=== PATIENT | female | born 1940 | race Caucasian/White ===

== ENCOUNTER 2017-07-21 10:29 | Inpatient (IN) ==
[2017-07-21] MEDS ORDERED: Isovue-370 500 ML INFUS..BTL IV ONE ×2 (10:39→11:06)
[2017-07-21] MEDS ORDERED: *HR* FentaNYL (PF) 100 MCG/2 ML VIAL IVP ONE ×2 (11:09→14:01)
[2017-07-21] MEDS ORDERED: Ondansetron 4 MG/2 ML VIAL IVP ONE (11:09)
--- NOTE | 2017-07-21 11:26 | Emergency Department Note ---
Disposition Clinical Impression: Hiatal hernia, Cholecystitis Leukocytosis Qualifiers: Leukocytosis type: other Qualified Code(s): D72.828 - Other elevated white blood cell count Disposition: Admitted As Inpatient Condition: Fair Referrals: Katia Cordoba CNP [Primary Care Provider] - Forms: ED Satisfaction Letter General Adult HPI - General Chief complaint: ED Chest Pain Stated complaint: Epigastric pain,CP Source: patient Limitations: no limitations Nursing Notes Reviewed: Yes Vital Signs Reviewed: Yes - History of Present Illness HPI Narrative: 77-year-old female presented to emergency department with epigastric and right upper quadrant pain for the last 2 days. Patient denies any fever. She denies any nausea or vomiting. Patient states that pain radiates to right side of her back. Patient does have gallbladder. Patient reports history of hiatal hernia. Patient also reports history of blood clots. Patient is currently on Xarelto. Patient was seen by primary care and given GI cocktail and this is not really for symptoms. Pain Scale: 8 - Related Data Home Medications Medication Instructions Recorded Confirmed Levothyroxine Sodium [Tirosint] 88 mcg PO DAILY 10/02/15 07/21/17 ALPRAZolam [Xanax 1 MG Tablet] 1 mg PO DAILY PRN 10/09/15 07/21/17 Omeprazole [PriLOSEC] 40 mg PO BID 10/09/15 07/21/17 B2/Vits A,C,E/Lut/Zeaxanth/Min 1 tab PO DAILY 07/21/17 07/21/17 [Icaps Tablet] DiphenhydraMINE [Benadryl] 25 mg PO Q6HR PRN 07/21/17 07/21/17 Ferrous Sulfate [Iron] 325 mg PO DAILY 07/21/17 07/21/17 Furosemide [Lasix] 20 mg PO DAILY 07/21/17 07/21/17 Losartan [Cozaar] 25 mg PO DAILY 07/21/17 07/21/17 Metoprolol XL (24 HR) Succ [Toprol 12.5 mg PO DAILY 07/21/17 07/21/17 Xl] Nitroglycerin [Nitrostat] 0.4 mg SL Q5MIN PRN 07/21/17 07/21/17 Potassium Chloride 20 meq PO DAILY 07/21/17 07/21/17 Rivaroxaban [Xarelto] 10 mg PO DAILY 07/21/17 07/21/17 Rosuvastatin Calcium [Rosuvastatin 20 mg PO HS 07/21/17 07/21/17 Calcium] Previous Rx's Medication Instructions Recorded Acetaminophen [Tylenol] 1 - 2 tab PO Q6HR PRN #90 tablet 10/02/15 Aspirin 81 mg PO DAILY #30 tab.chew 11/12/15 Allergies Allergy/AdvReac Type Severity Reaction Status Date / Time adhesive tape Allergy Rash Verified 07/21/17 15:43 All systems ED: reviewed and negative except as stated. Review of Systems: As Per HPI Cardiovascular: Denies: chest pain Respiratory: Denies: cough Gastrointestinal: Reports: abdominal pain, nausea. Denies: vomiting Genitourinary: Denies: urgency, dysuria Musculoskeletal: Denies: back pain Integumentary: Denies: rash Neurological: Denies: headache, weakness, numbness, paresthesias Endocrine: Denies: fatigue Past Medical History - Past Medical History Medical history: Reports: hyperlipidemia, hypertension, myocardial infarction, pulmonary embolus, other Surgical history: Reports: other Psychiatric history: Reports: anxiety, depression - Social History Smoking Status: Never smoker Smokeless Tobacco Status: No Alcohol use: Reports: none Drug use: Reports: none Physical Exam - General Limitations: no limitations General appearance: alert, in no apparent distress - Head Head exam: atraumatic, normocephalic - Eye Eye exam: Present: EOMI. Absent: scleral icterus, conjunctival injection - ENT ENT exam: normal exam, normal oropharynx - Neck Neck exam: Present: full ROM, trachea midline. Absent: tenderness, meningismus - Chest Chest inspection: Present: normal inspection, symmetric chest wall rise - Respiratory Respiratory exam: Present: normal lung sounds bilaterally. Absent: respiratory distress - Cardiovascular Cardiovascular exam: Present: regular rate, normal rhythm, normal heart sounds - Abdominal Exam Abdominal exam: Present: soft, tenderness, Silverio's sign. Absent: distention, guarding, rebound Abdominal tenderness: Present: RUQ, moderate - Extremities Exam Extremities exam: Present: normal capillary refill. Absent: calf tenderness - Back Exam Back exam: Absent: CVA tenderness (R), CVA tenderness (L) - Neurological Exam Neurological exam: Present: alert, oriented X3 - Psychiatric Psychiatric exam: Present: normal affect, normal mood - Skin Skin exam: Present: warm, dry, intact, normal color. Absent: rash Course Vital Signs Temperature 99.6 F 07/21/17 10:33 Pulse Rate 87 07/21/17 10:33 Respiratory Rate 18 07/21/17 10:33 Blood Pressure 127/78 07/21/17 10:33 O2 Sat by Pulse Oximetry 93 07/21/17 10:33 Temperature 99.6 F 07/21/17 10:59 Pulse Rate 75 07/21/17 15:52 Respiratory Rate 20 07/21/17 15:52 Blood Pressure 148/82 07/21/17 15:52 O2 Sat by Pulse Oximetry 95 07/21/17 15:52 Oxygen Delivery Oxygen Delivery Room Air Medical Decision Making - MDM Narrative Medical decision making narrative: 77-year-old female presents to emergency department with concern for 2 days of right upper quadrant and epigastric pain. We obtained a CT scan of abdomen and pelvis which revealed possible gallbladder distention, wall thickening and adjacent fat stranding. We obtained ultrasound the gallbladder which revealed distention, wall thickening and adjacent fat stranding. There was an sure and extrahepatic biliary ductal dilation without calcified distal obstructing common duct stone. Chest x-ray reveals no acute pulmonary abnormality. Patient has leukocytosis. Total bilirubin is 1.2. Hepatic transaminases are not elevated. Reveals the hiatal hernia that the patient has. CTA was also obtained as there was possible concern for pulmonary embolus as patient has a history of blood clots. This did not reveal any evidence of PE. Electrocardiogram did not reveal any ischemic ST changes. Troponin was negative. Patient was given a liter of fluids here in the emergency department. She was given analgesia for pain. Patient was given Zosyn as well for antimicrobial coverage. I spoke with Dr. Bear regarding patient's care. Patient is not a low-risk surgery as she is 77-year-old female had a history of RI. Last echocardiogram reveals ejection fraction of 35-40% obtained in October 2015. Patient is also on Xarelto. We have ordered a stat echocardiogram that is currently pending for Dr. Bear for further cardiac risk stratification. I spoke with patient at bedside regarding all the results. Abdomen/Pelvis CT 07/21/17 10:40 IMPRESSION: No acute intrathoracic process suspected. The gallbladder shows distention, wall thickening and adjacent fat stranding suggesting acute inflammation. Intra/extrahepatic biliary ductal dilation without calcified distal obstructing common duct stone. Large hiatal hernia. Distal colonic diverticulosis without radiographic evidence of active inflammation. L3 compression fracture, likely remote. Correlation is recommended. D/ / Mavis De La Cruz Cha, MD / Mavis De La Cruz Cha, MD Interpreting Provider: Mavis De La Cruz Cha, MD Chest X-Ray 07/21/17 10:40 IMPRESSION: 1. No acute pulmonary abnormality. 2. Hiatal hernia. D/ / Bernard Dhaliwal MD / Bernard Dhaliwal MD Interpreting Provider: Bernard Dhaliwal MD Chest CTA 07/21/17 10:56 IMPRESSION: No acute intrathoracic process suspected. The gallbladder shows distention, wall thickening and adjacent fat stranding suggesting acute inflammation. Intra/extrahepatic biliary ductal dilation without calcified distal obstructing common duct stone. Large hiatal hernia. Distal colonic diverticulosis without radiographic evidence of active inflammation. L3 compression fracture, likely remote. Correlation is recommended. D/ / Mavis De La Cruz Cha, MD / Mavis De La Cruz Cha, MD Interpreting Provider: Mavis De La Cruz Cha, MD Gallbladder Ultrasound 07/21/17 13:34 IMPRESSION: Gallbladder is distended with thick mcclure, sludge PERRY, stones and probable small amount of pericholecystic fluid. Findings concerning for acute cholecystitis. D/ / Christian Davis MD / Christian Davis MD Interpreting Provider: Christian Davis MD - Lab Data Result diagrams: 07/21/17 10:57 07/21/17 10:57 Lab Results 07/21/17 07/21/17 07/21/17 Range/Units 10:57 10:57 11:45 WBC 14.6 H (4.3-11.1) K/mcL RBC 5.37 H (3.82-4.97) M/mcL Hgb 15.6 H (11.5-15.4) g/dL Hct 47.3 H (35.3-44.9) % MCV 88.1 (83.0-100.0) fL MCH 29.1 (28.0-33.3) pg MCHC 33.0 (31.6-35.5) g/dL RDW 14.2 (11.5-14.5) % Plt Count 268 (140-400) K/mcL MPV 10.4 (9.4-12.4) fL Immature Gran % 0.5 (0-4) % Seg Neutrophils % 79.9 % Lymphocytes % 9.6 % Monocytes % 9.7 % Eosinophils % 0.1 % Basophils % 0.2 % Neutrophils # 11.7 H (1.6-8.9) K/mcL Lymphocytes # 1.4 (0.6-4.6) K/mcL Monocytes # 1.4 H (0.0-1.3) K/mcL Eosinophils # 0.0 (0.0-0.6) K/mcL Basophils # 0.0 (0.0-0.2) K/mcL Sodium 139 (136-145) mEq/L Potassium 3.9 (3.5-5.1) mEq/L Chloride 102 (98-107) mEq/L Carbon Dioxide 26 (23-29) mEq/L BUN 16 (8-23) mg/dL Creatinine 0.88 (0.60-1.20) mg/dL Est GFR ( Amer) > 60 (> 60) Est GFR (Non-Af Amer) > 60 (> 60) BUN/Creatinine Ratio 18 (6-26) Glucose 111 H (70-105) mg/dL Calculated Osmolality 290 (280-300) Calcium 9.6 (8.6-10.3) mg/dL Total Bilirubin 1.2 H (0.3-1.0) mg/dL AST 20 (13-39) Units/L ALT 14 (7-52) Units/L Alkaline Phosphatase 59 (34-104) Units/L Troponin I < 0.03 (< 0.04) ng/mL Serum Total Protein 7.2 (6.4-8.9) g/dL Albumin 4.3 (3.5-5.7) g/dL Globulin 2.9 (2.4-3.5) g/dL Albumin/Globulin Ratio 1.5 (1.1-2.2) Lipase 12 (11-82) Units/L Urine Color Yellow (Yellow) Urine Clarity Clear (Clear) Urine pH 5.5 (5.0-8.0) pH Units Ur Specific [place] 1.025 (1.010-1.025) Urine Protein 100 H (Neg-Trace) mg/dL Urine Glucose (UA) Normal (Normal) mg/dL Urine Ketones 15 H (Negative) mg/dL Urine Blood Negative (Negative) Urine Nitrite Negative (Negative) Urine Bilirubin Small H (Negative) Urine Urobilinogen Normal (Normal) mg/dL Ur Leukocyte Esterase Trace H (Negative) Urine Microscopic WBC 5-15 H (0-3) per hpf Ur Squamous Epith Cells Many H (None-Few) per lpf Ur Renal Epithelial Cell Few (None-Few) per hpf Urine Bacteria Few (None-Few) per hpf Ur Culture Indicated? NO. A (NO) - EKG Data EKG #1 EKG attestation: Yes I reviewed and interpreted this EKG. EKG results narrative: 10:37 Ventricular rate 86 bpm, IN interval 214 ms, QRS duration 145 ms, QT 394 ms, QTC 137 ms, left axis deviation. Sinus rhythm with first-degree AV block. There is no evidence of any ischemic ST changes on this electrocardiogram. This study was compared to previous one obtained on 11/11/2015.
[2017-07-21 11:52] LABS: Bilirubin,Urine Small (Negative); Blood,Urine Negative (Negative); Clarity,Urine Clear (Clear); Color,Urine Yellow (Yellow); Glucose,Urine (UA) Normal (Normal); Ketones,Urine 15 mg/dL (Negative); Leukocyte Esterase,Urine Trace (Negative); Nitrite,Urine Negative (Negative); PH,Urine 5.5 pH Units (5.0-8.0); Protein,Urine 100 mg/dL (Neg-Trace); Specific Gravity,Urine 1.025 (1.010-1.025); Urobilinogen,Urine Normal (Normal)
[2017-07-21 11:57] LABS: Basophils % 0.2 %; Eosinophils % 0.1 %; Hematocrit 47.3 % (35.3-44.9); Hemoglobin 15.6 g/dL (11.5-15.4); Immature Granulocytes % 0.5 % (0-4); Lymphocytes # 1.4 K/mcL (0.6-4.6); Lymphocytes % 9.6 %; Mean Corpuscular Hemoglobin 29.1 pg (28.0-33.3); Mean Corpuscular Volume 88.1 fL (83.0-100.0); Mean Platelet Volume 10.4 fL (9.4-12.4); Monocytes # 1.4 K/mcL (0.0-1.3); Monocytes % 9.7 %; Neutrophils # 11.7 K/mcL (1.6-8.9); Platelet Count 268 K/mcL (140-400); Red Blood Count 5.37 M/mcL (3.82-4.97); Red Cell Distribution Width 14.2 % (11.5-14.5); Segmented Neutrophils % 79.9 %
[2017-07-21 12:01] LABS: Squamous Epithelial Cell,Urine Many per lpf (None-Few)
[2017-07-21 12:02] LABS: Troponin I < 0.03 ng/mL (< 0.04)
[2017-07-21 12:02] LABS: Renal Epithelial Cells,Urine Few per hpf (None-Few)
[2017-07-21 12:03] LABS: Bacteria,Urine Few per hpf (None-Few)
[2017-07-21 12:10] LABS: Alanine Aminotransferase 14 Units/L (7-52); Albumin 4.3 g/dL (3.5-5.7); Albumin/Globulin Ratio 1.5 (1.1-2.2); Alkaline Phosphatase 59 Units/L (34-104); Aspartate Amino Transferase 20 Units/L (13-39); BUN/Creatinine Ratio 18 (6-26); Bilirubin,Total 1.2 mg/dL (0.3-1.0); Blood Urea Nitrogen 16 mg/dL (8-23); Calcium 9.6 mg/dL (8.6-10.3); Carbon Dioxide 26 mEq/L (23-29); Chloride 102 mEq/L (98-107); Globulin 2.9 g/dL (2.4-3.5); Glucose 111 mg/dL (70-105); Lipase 12 Units/L (11-82); Osmolality,Calculated 290 (280-300); Potassium 3.9 mEq/L (3.5-5.1); Sodium 139 mEq/L (136-145); Total Protein 7.2 g/dL (6.4-8.9); eGFR For African Americans > 60 (> 60); eGFR For Non-African Americans > 60 (> 60)
--- NOTE | 2017-07-21 12:29 | Emergency Department Note ---
Disposition Clinical Impression: Hiatal hernia Disposition: Still a Patient Referrals: Katia Cordoba DISASTER RECOVERY ANALYST [Primary Care Provider] - Forms: ED Satisfaction Letter General Adult HPI - General Chief complaint: ED Chest Pain Stated complaint: Epigastric pain,CP Source: patient Limitations: no limitations - History of Present Illness Pain Scale: 4 - Related Data Home Medications Medication Instructions Recorded Confirmed Levothyroxine Sodium [Tirosint] 88 mcg PO DAILY 10/02/15 11/08/15 ALPRAZolam [Xanax 1 MG Tablet] 1 mg PO DAILY PRN 10/09/15 11/11/15 Beclomethasone Diprop 80mcg [QVAR 1 puff IH BID 10/09/15 10/19/15 80 mcg] Ferrous Sulfate 325 mg PO DAILY 10/09/15 10/19/15 Omeprazole [PriLOSEC] 40 mg PO HS 10/09/15 11/08/15 TraZODone 50 mg PO HS 10/09/15 10/19/15 Previous Rx's Medication Instructions Recorded Acetaminophen [Tylenol] 1 - 2 tab PO Q6HR PRN #90 tablet 10/02/15 HYDROcodone/Acet 5/325 mg [[place] 1 - 2 tab PO Q4H PRN #40 tablet 10/13/15 5-325 mg] Aspirin 81 mg PO DAILY #30 tab.chew 11/12/15 Atorvastatin [Lipitor] 80 mg PO HS #30 tablet 11/12/15 Furosemide [Lasix] 40 mg PO BID #30 tablet 11/12/15 Losartan [Cozaar] 25 mg PO Q24H #30 tablet 11/12/15 Metoprolol XL (24 HR) Succ [Toprol 25 mg PO DAILY #30 tab.er.24h 11/12/15 Xl] Potassium Chloride 40 meq PO DAILY #30 tab.er.prt 11/12/15 Ticagrelor [Brilinta] 90 mg PO BID #60 tablet 11/12/15 Allergies Allergy/AdvReac Type Severity Reaction Status Date / Time adhesive tape Allergy Rash Verified 10/13/15 13:11 Past Medical History - Past Medical History Medical history: Reports: hyperlipidemia, hypertension, myocardial infarction, pulmonary embolus, other Surgical history: Reports: other Psychiatric history: Reports: anxiety, depression - Social History Smoking Status: Never smoker Smokeless Tobacco Status: No Alcohol use: Reports: none Drug use: Reports: none Physical Exam - General Limitations: no limitations General appearance: alert, in no apparent distress Course Vital Signs Temperature 99.6 F 07/21/17 10:33 Pulse Rate 87 07/21/17 10:33 Respiratory Rate 18 07/21/17 10:33 Blood Pressure 127/78 07/21/17 10:33 O2 Sat by Pulse Oximetry 93 07/21/17 10:33 Temperature 99.6 F 07/21/17 10:59 Pulse Rate 86 07/21/17 12:12 Respiratory Rate 15 07/21/17 12:12 Blood Pressure 126/68 07/21/17 12:12 O2 Sat by Pulse Oximetry 94 07/21/17 12:12 Oxygen Delivery Oxygen Delivery Nasal Cannula Medical Decision Making - Lab Data Result diagrams: 07/21/17 10:57 07/21/17 10:57 Lab Results 07/21/17 07/21/17 07/21/17 Range/Units 10:57 10:57 11:45 WBC 14.6 H (4.3-11.1) K/mcL RBC 5.37 H (3.82-4.97) M/mcL Hgb 15.6 H (11.5-15.4) g/dL Hct 47.3 H (35.3-44.9) % MCV 88.1 (83.0-100.0) fL MCH 29.1 (28.0-33.3) pg MCHC 33.0 (31.6-35.5) g/dL RDW 14.2 (11.5-14.5) % Plt Count 268 (140-400) K/mcL MPV 10.4 (9.4-12.4) fL Immature Gran % 0.5 (0-4) % Seg Neutrophils % 79.9 % Lymphocytes % 9.6 % Monocytes % 9.7 % Eosinophils % 0.1 % Basophils % 0.2 % Neutrophils # 11.7 H (1.6-8.9) K/mcL Lymphocytes # 1.4 (0.6-4.6) K/mcL Monocytes # 1.4 H (0.0-1.3) K/mcL Eosinophils # 0.0 (0.0-0.6) K/mcL Basophils # 0.0 (0.0-0.2) K/mcL Sodium 139 (136-145) mEq/L Potassium 3.9 (3.5-5.1) mEq/L Chloride 102 (98-107) mEq/L Carbon Dioxide 26 (23-29) mEq/L BUN 16 (8-23) mg/dL Creatinine 0.88 (0.60-1.20) mg/dL Est GFR ( Amer) > 60 (> 60) Est GFR (Non-Af Amer) > 60 (> 60) BUN/Creatinine Ratio 18 (6-26) Glucose 111 H (70-105) mg/dL Calculated Osmolality 290 (280-300) Calcium 9.6 (8.6-10.3) mg/dL Total Bilirubin 1.2 H (0.3-1.0) mg/dL AST 20 (13-39) Units/L ALT 14 (7-52) Units/L Alkaline Phosphatase 59 (34-104) Units/L Troponin I < 0.03 (< 0.04) ng/mL Serum Total Protein 7.2 (6.4-8.9) g/dL Albumin 4.3 (3.5-5.7) g/dL Globulin 2.9 (2.4-3.5) g/dL Albumin/Globulin Ratio 1.5 (1.1-2.2) Lipase 12 (11-82) Units/L Urine Color Yellow (Yellow) Urine Clarity Clear (Clear) Urine pH 5.5 (5.0-8.0) pH Units Ur Specific [place] 1.025 (1.010-1.025) Urine Protein 100 H (Neg-Trace) mg/dL Urine Glucose (UA) Normal (Normal) mg/dL Urine Ketones 15 H (Negative) mg/dL Urine Blood Negative (Negative) Urine Nitrite Negative (Negative) Urine Bilirubin Small H (Negative) Urine Urobilinogen Normal (Normal) mg/dL Ur Leukocyte Esterase Trace H (Negative) Urine Microscopic WBC 5-15 H (0-3) per hpf Ur Squamous Epith Cells Many H (None-Few) per lpf Ur Renal Epithelial Cell Few (None-Few) per hpf Urine Bacteria Few (None-Few) per hpf Ur Culture Indicated? NO. A (NO) Attestation Statement - Attestation Attestation: I examined this patient and my medical decision-making was reviewed with the Resident Physician. I agree with the documented findings, disposition and treatment plan as described except to the extent set forth below. 77 year old female presents to the ED with complaints of epigastric pain and has a known hiatal hernia that has been biopsied in this past may at [facility] without medical management needed. Patinet states that she is having reucrring pain, nausea and one episode of vomittting NBNB. PAtine deneis other chest pain or shortnesss of breath or hematemesis, hemoptyosis. we will do cardiopulmnoary workup and ABCT. Patinet states that her pain is better
[2017-07-21] MEDS ORDERED: 0.9 % Sodium Chloride 1,000 ML IVC ONE (13:35)
[2017-07-21] MEDS ORDERED: Piperacillin/Tazobactam 3.375 GM in 0.9 % Sodium Chloride Mini Bag 100 ML IVPB ONE (15:16)
[2017-07-21] MEDS ORDERED: Acetaminophen 325 MG TABLET PO PRN (17:49)
[2017-07-21] MEDS ORDERED: ALPRAZolam 1 MG TABLET PO PRN (17:49)
--- NOTE | 2017-07-21 18:15 | General Surg History&Physical ---
Date of Encounter: 07/21/17 Time of Encounter: 17:57 History of Present Illness Chief complaint: Right upper quadrant abdominal pain nausea HPI: Ms. Cee is a 77 year old female referred to surgical services for further evaluation and treatment of abrupt onset right upper quadrant abdominal pain with nausea. The symptoms began last evening and have persisted through the course of the day. Ultrasound gallbladder shows findings consistent with acute cholecystitis - the gallbladder is distended with thickened edematous mcclure measuring up to 4.4 mm; a small amount of pericholecystic fluid is noted; dependent stones and sludge are also noted. A positive sonographic Silverio sign is described. These findings and the patient's symptoms prompted a referral for surgical evaluation Past medical history: CAD with prior CO 2015; status post coronary stent(s); history of pulmonary embolism; generalized anxiety/depression; hypertension; hyperlipidemia; atrial fibrillation and chronic anticoagulation (Xarelto); hypothyroidism Surgical history: Placement of coronary stent; tubal ligation; left total knee; right total hip; lumbar fusion with paraspinal benjamin placement; bilateral phlebectomies Allergies: Patient reports Percocet gave her a headache in the remote past. She has taken oxycodone postoperatively in the past Medications: Levothyroxine 88 g by mouth daily Alprazolam 1 mg by mouth as needed Beclomethasone 80 g 1 puff twice a day Ferrous sulfate 325 mg by mouth daily Omeprazole 40 mg by mouth at bedtime Trazodone 50 mg by mouth daily at bedtime Aspirin 81 mg by mouth daily Atorvastatin 80 mg by mouth daily at bedtime Furosemide 20 mg by mouth daily Losartan 25 mg by mouth daily Metoprolol XL 25 mg by mouth daily Xarelto dose and frequency not specified Social history: Patient has never smoked, she does not consume alcohol or use illicit drugs. She is G5, P4 - all via normal vaginal delivery Family history: Noncontributory Physical examination: Elderly, age-appropriate woman in no acute distress. The acute abdominal symptoms with which she presented to the emergency department have subsided. Temperature 99.6, pulse 84 (range 75-88, regular) respiratory rate 15-20, blood pressure 149/81. SPO2 on 2 L/m nasal cannula 93-98% Skin: Warm, no obvious jaundice Lungs: Clear bilaterally; no obvious wheezing or rales Cardiac: Regular rate no appreciable murmurs Abdomen: Soft, minimally tender in the epigastrium/right upper quadrant. No rebound. Active bowel sounds. No obvious intra-abdominal masses. Gallbladder is not palpable. Extremities: No obvious clubbing, cyanosis, or edema. Ultrasound gallbladder was reviewed Laboratories: White count 14.6, hemoglobin 15.6 with hematocrit 47.3; platelet count 268,000; neutrophils elevated, 11.7, monocytes elevated 1.4. Electrolytes, BUN, creatinine within normal limits. Bilirubin 1.2; AST, ALT, alkaline phosphatase and phosphatase within normal limits. Troponins less than 0.03. Urinalysis notable for specific gravity 1.025, pH 5.5, urine ketones 15, urine bilirubin small, microscopic showing 5-15 WBC/hpf PT/INR ordered stat and pending Impression: 77-year-old female with abrupt onset epigastric and right upper quadrant abdominal pain with clinical and radiologic findings consistent with acute cholecystitis, cholelithiasis. An echocardiogram has been ordered stat and will be compared to previous studies to determine the patient's cardiac suitability for surgery. Surgery is recommended based on the acute presentation. The patient is a reasonable candidate for laparoscopic cholecystectomy but understands that an open cholecystectomy may become necessary. Risks include hemorrhage, infection, intra-abdominal abscess, bile leak, injury to adjacent ducts, vessels, organs, bowel. Cardiac risks including recurrent CO, dysrhythmia and pulmonary risks such as pneumonia, respiratory failure and recurrent PE are also present. The patient is currently stable. Surgery is planned in the a.m. if the patient is medically stable and surgery is still indicated. Past Med Surg Social Fam HX - Past Medical History Medical history: hyperlipidemia, hypertension, myocardial infarction, pulmonary embolus, other Additional medical history: blood clot. insonmia, hital hernia Psychiatric history: anxiety, depression - Past Surgical History Surgical History: other Additional surgical history: total lt knee. rt hip replacement. left knee, back sx. 2 cardiac stents - Social History Smoking Status: Never smoker Smokeless Tobacco Status: No Alcohol use: none Drug use: none - Family History Mother Name: Marianne Rojas Age: 57 Living Status: Age at : 57 Cause of : CO Hx Family Cardiac Disorders: Yes Medications and Allergies Acetaminophen [Tylenol] 1 - 2 tab PO Q6HR PRN #90 tablet 10/02/15 [Rx] Levothyroxine Sodium [Tirosint] 88 mcg PO DAILY 10/02/15 [History] ALPRAZolam [Xanax 1 MG Tablet] 1 mg PO DAILY PRN 10/09/15 [History] Omeprazole [PriLOSEC] 40 mg PO BID 10/09/15 [History] Aspirin 81 mg PO DAILY #30 tab.chew 11/12/15 [Rx] B2/Vits A,C,E/Lut/Zeaxanth/Min [Icaps Tablet] 1 tab PO DAILY 07/21/17 [History] DiphenhydraMINE [Benadryl] 25 mg PO Q6HR PRN 07/21/17 [History] Ferrous Sulfate [Iron] 325 mg PO DAILY 07/21/17 [History] Furosemide [Lasix] 20 mg PO DAILY 07/21/17 [History] Losartan [Cozaar] 25 mg PO DAILY 07/21/17 [History] Metoprolol XL (24 HR) Succ [Toprol Xl] 12.5 mg PO DAILY 07/21/17 [History] Nitroglycerin [Nitrostat] 0.4 mg SL Q5MIN PRN 07/21/17 [History] Potassium Chloride 20 meq PO DAILY 07/21/17 [History] Rivaroxaban [Xarelto] 10 mg PO DAILY 07/21/17 [History] Rosuvastatin Calcium [Rosuvastatin Calcium] 20 mg PO HS 07/21/17 [History] 3 Allergy/AdvReac Type Severity Reaction Status Date / Time adhesive tape Allergy Rash Verified 07/21/17 15:43 Review of Systems All systems PM: The remainder of the systems were reviewed and are negative General Surgery Exam Initial Vital Signs Temp Pulse Resp BP Pulse Ox 99.6 F 87 18 127/78 93 07/21/17 10:33 07/21/17 10:33 07/21/17 10:33 07/21/17 10:33 07/21/17 10:33 Results - Labs 07/21/17 10:57 07/21/17 10:57 Abnormal lab results WBC 14.6 K/mcL (4.3-11.1) H 07/21/17 10:57 RBC 5.37 M/mcL (3.82-4.97) H 07/21/17 10:57 Hgb 15.6 g/dL (11.5-15.4) H 07/21/17 10:57 Hct 47.3 % (35.3-44.9) H 07/21/17 10:57 Neutrophils # 11.7 K/mcL (1.6-8.9) H 07/21/17 10:57 Monocytes # 1.4 K/mcL (0.0-1.3) H 07/21/17 10:57 Glucose 111 mg/dL (70-105) H 07/21/17 10:57 Total Bilirubin 1.2 mg/dL (0.3-1.0) H 07/21/17 10:57 Urine Protein 100 mg/dL (Neg-Trace) H 07/21/17 11:45 Urine Ketones 15 mg/dL (Negative) H 07/21/17 11:45 Urine Bilirubin Small (Negative) H 07/21/17 11:45 Ur Leukocyte Esterase Trace (Negative) H 07/21/17 11:45 Urine Microscopic WBC 5-15 per hpf (0-3) H 07/21/17 11:45 Ur Squamous Epith Cells Many per lpf (None-Few) H 07/21/17 11:45 Ur Culture Indicated? NO. (NO) A 07/21/17 11:45 All other labs normal.
[2017-07-21 18:39] LABS: INR 1.2; Prothrombin Time 12.8 Seconds (9.4-12.1)
[2017-07-21] MEDS: Ringers Solution, Lactated 1,000 ML IVC SCH (18:41)
[2017-07-21] MEDS: Aspirin 81 MG TAB.CHEW PO SCH (18:41)
[2017-07-21] MEDS: Metoprolol XL (24 HR) Succ 25 MG TAB.ER.24H PO SCH (18:41)
--- NOTE | 2017-07-21 20:49 | Anesthesia Evaluation PreOp ---
Date of Encounter: 07/21/17 Time of Encounter: 20:47 - Past History Planned Operation: lap cholecystectomy, poss open Cardiac History: CA (2016), HTN, Hyperlipidemia, Arrhythmia (paroxysmal afib), Cardiac Stent (x2), Other (ECHO 07/21/17 Impressions: LVEF 55%. Normal LV chamber size and function. Asymmetric hypertrophy of the basal septum. Mild left ventricular diastolic dysfunction. Atypical septal motion consistent with bundle branch block. Normal right ventricular structure and function. No evidence of pulmonary hypertension. No significant valvular dysfunction. 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: Other (anxiety, depression) Other Medical History: Thyroid (hypo), GERD Anesthesia History: Past Anesthesia, Problems (PONV) Alcohol Use: none Drug use: none Medications and Allergies Acetaminophen [Tylenol] 1 - 2 tab PO Q6HR PRN #90 tablet 10/02/15 [Rx] Levothyroxine Sodium [Tirosint] 88 mcg PO DAILY 10/02/15 [History] ALPRAZolam [Xanax 1 MG Tablet] 1 mg PO DAILY PRN 10/09/15 [History] Omeprazole [PriLOSEC] 40 mg PO BID 10/09/15 [History] Aspirin 81 mg PO DAILY #30 tab.chew 11/12/15 [Rx] B2/Vits A,C,E/Lut/Zeaxanth/Min [Icaps Tablet] 1 tab PO DAILY 07/21/17 [History] DiphenhydraMINE [Benadryl] 25 mg PO Q6HR PRN 07/21/17 [History] Ferrous Sulfate [Iron] 325 mg PO DAILY 07/21/17 [History] Furosemide [Lasix] 20 mg PO DAILY 07/21/17 [History] Losartan [Cozaar] 25 mg PO DAILY 07/21/17 [History] Metoprolol XL (24 HR) Succ [Toprol Xl] 12.5 mg PO DAILY 07/21/17 [History] Nitroglycerin [Nitrostat] 0.4 mg SL Q5MIN PRN 07/21/17 [History] Potassium Chloride 20 meq PO DAILY 07/21/17 [History] Rivaroxaban [Xarelto] 10 mg PO DAILY 07/21/17 [History] Rosuvastatin Calcium [Rosuvastatin Calcium] 20 mg PO HS 07/21/17 [History] 3 Allergy/AdvReac Type Severity Reaction Status Date / Time adhesive tape Allergy Rash Verified 07/21/17 15:43 - Meds/Allergy Pre-op Review Medications Reviewed: Yes Allergies Reviewed: Yes Beta Blockers on Current Med List: Yes If Beta Blockers taken, Date/Time (Last Dose taken): 07/21/17 1841 Anesthesia Results - Labs 07/21/17 10:57 07/21/17 10:57 Laboratory Tests 07/21/17 18:15 PT 12.8 H INR 1.2 - Imaging EKG: pending Anesthesia Exam Vital Signs/O2 Sat, Most Current Temp Pulse Resp BP Pulse Ox 98 F 76 15 126/77 94 07/21/17 19:10 07/21/17 19:10 07/21/17 19:10 07/21/17 19:10 07/21/17 19:10 Weight: 75kg NPO (# of Hours): >8 - HEENT Pupil (Motor): Pupils equal, EOMI Mallampati: II Teeth: Edentulous Denture Type: Upper: Complete, Lower: Complete Oral Opening: Greater than 3 - 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
[2017-07-21] MEDS ORDERED: traZODone 50 MG TABLET PO SCH (21:00)
[2017-07-21] MEDS: *HR* OxyCODONE Immed Rel 5 MG TABLET PO PRN (21:01)
--- NOTE | 2017-07-21 21:02 | Electrocardiograph Report ---
[facility] Test Date: 2017-07-21 Pat Name: Zaina Cee Department: 103 Room: 3A53 Gender: F Ecdis N Navigation Operator: DARIA : 1940 Requested By: Ramone Farias Order Number: [id number] Reading MD: Shaheen Louie Measurements Intervals Mach[place] Rate: 86 P: 12 NM: 214 QRS: -58 QRSD: 145 T: 5 QT: 394 QTc: 437 Interpretive Statements SINUS RHYTHM WITH FIRST DEGREE AV BLOCK RIGHT BUNDLE BRANCH BLOCK LEFT ANTERIOR FASCICULAR BLOCK Electronically Signed On 07-21-2017 21:00:36 EDT by Shaheen Louie
[2017-07-21] MEDS ORDERED: Beclomethasone 80mcg MDI IH SCH (22:00)
[2017-07-22] MEDS: Piperacillin/Tazobactam 3.375 GM in 0.9 % Sodium Chloride Mini Bag 100 ML IVPB SCH ×2 (00:28→09:38)
[2017-07-22] MEDS: *HR* OxyCODONE Immed Rel 5 MG TABLET PO PRN ×3 (03:18→21:43)
[2017-07-22 04:01] LABS: Basophils % 0.4 %; Eosinophils # 0.1 K/mcL (0.0-0.6); Eosinophils % 0.7 %; Hematocrit 42.2 % (35.3-44.9); Immature Granulocytes % 0.4 % (0-4); Lymphocytes # 1.4 K/mcL (0.6-4.6); Lymphocytes % 13.3 %; Mean Corpuscular Hemoglobin 28.7 pg (28.0-33.3); Mean Corpuscular Volume 89.6 fL (83.0-100.0); Mean Platelet Volume 10.1 fL (9.4-12.4); Monocytes # 1.1 K/mcL (0.0-1.3); Neutrophils # 8.1 K/mcL (1.6-8.9); Platelet Count 200 K/mcL (140-400); Red Blood Count 4.71 M/mcL (3.82-4.97); Red Cell Distribution Width 14.4 % (11.5-14.5); Segmented Neutrophils % 75.2 %
[2017-07-22 04:11] LABS: Hemoglobin 13.5 g/dL (11.5-15.4)
[2017-07-22] MEDS: Aspirin 81 MG TAB.CHEW PO SCH (09:38)
[2017-07-22] MEDS: Metoprolol XL (24 HR) Succ 25 MG TAB.ER.24H PO SCH (09:38)
[2017-07-22] MEDS ORDERED: *HR* OxyCODONE Immed Rel 5 MG TABLET PO ONE (11:31)
[2017-07-22] MEDS ORDERED: Bupivacaine/EPI 1:200k 0.25%PF 30 ML VIAL ONE ×2 (13:37→15:26)
[2017-07-22] MEDS ORDERED: Isovue-300 50 ML VIAL IVP ONE (13:41)
[2017-07-22] MEDS ORDERED: *HR* Rocuronium Bromide 50 MG/5 ML VIAL ONE (14:11)
[2017-07-22] MEDS ORDERED: *HR* FentaNYL (PF) 100 MCG/2 ML VIAL ONE (14:11)
[2017-07-22] MEDS ORDERED: Lidocaine -MPF 2% 2 ML VIAL ONE (14:11)
[2017-07-22] MEDS ORDERED: *HR* Midazolam HCl 2 MG/2 ML VIAL ONE (14:11)
[2017-07-22] MEDS ORDERED: *HR* Propofol 200 MG/20 ML VIAL IVP ONE (14:11)
[2017-07-22] MEDS ORDERED: Dexamethasone 4 MG/ML VIAL ONE (14:11)
[2017-07-22] MEDS ORDERED: Lidocaine -MPF 4% 5 ML AMPUL ONE (14:11)
[2017-07-22] MEDS ORDERED: Ondansetron 4 MG/2 ML VIAL ONE (14:11)
[2017-07-22] MEDS ORDERED: EPHEDrine 50 MG/ML VIAL ONE (14:24)
[2017-07-22] MEDS ORDERED: Acetaminophen IV 1,000 MG/100 ML INFUS..BTL ONE (14:51)
[2017-07-22] MEDS ORDERED: *HR* Promethazine 25 MG/ML VIAL IVP PRN (14:58)
[2017-07-22] MEDS ORDERED: MORPHINE SUL Oral CONC 10 MG/0.5 ML ORAL.SYG SL PRN (14:58)
[2017-07-22] MEDS ORDERED: *HR* OxyCODONE Immed Rel 5 MG TABLET PO PRN (14:58)
[2017-07-22] MEDS ORDERED: Neostigmine Methylsulfate 3 MG/3 ML SYRINGE ONE (15:11)
[2017-07-22] MEDS ORDERED: Ringers Solution, Lactated 500 ML IVC ONE (16:33)
--- NOTE | 2017-07-22 16:38 | Operative Note ---
Date of procedure: 07/22/17 Pre-op diagnosis: Acute calculus cholecystitis Procedure: Laparoscopic cholecystectomy, intraoperative cholangiogram; open celiotomy for hemostasis Implants: None Complications: Persistent bleeding from the liver bed requiring open celiotomy after completion of the laparoscopic cholecystectomy Local Anesthetics: 0.25% Sensorcaine HCL with Epinephrine 1:200,000 SubQ (cc) ( 48 mL) Surgeon: Erasmo Bear Was there an physiotherapy assistant present: No Estimated blood loss (cc): 500 IV fluids (cc): 1,400 Specimen: gallbladder Condition: stable Disposition: PACU Procedure in Detail: The patient was brought to the operating room where she was placed supine on the procedure table. The patient was appropriately identified as to person and procedure. The accuracy of this information was confirmed by the patient and the procedure team. Patient was then intubated and anesthetized by [facility]. The abdomen was prepped and draped in the usual sterile fashion. Several milliliters of 0.25% bupivacaine with 1-200,000 epinephrine was infiltrated into the infraumbilical skin. A small transverse incision was made, dissection extended to the fascia. The fascia was grasped, elevated, and infiltrated with additional bupivacaine with epinephrine. The fascia was incised, an 11 mm Xcel port established. The rigid laparoscope was placed within the obturator to visualize passage through the layers of the anterior abdominal wall. When the abdominal cavity was accessed, the obturator was replaced by the rigid laparoscope, the abdomen was insufflated with gaseous carbon dioxide. There was no obvious visible injury from establishing this port. Under direct visualization 3 additional ports were placed along the right costal margin in the subxiphoid, midclavicular, and anterior axillary line. Each site was infiltrated with the bupivacaine with epinephrine solution. The gallbladder was tensely distended and acutely inflamed. It was necessary to aspirate approximately 180 mL of green turbid bile to facilitate sufficient decompression of the gallbladder and allow retraction. The gallbladder was retracted and the hepatoduodenal ligament dissected. The cystic duct was skeletonized and clipped near the infundibulum of the gallbladder. Via a separate percutaneous insertion site, a Taut cholangiogram catheter was introduced, the cystic duct was incised, the cholangiogram catheter inserted. Using C-arm fluoroscopy, a cholangiogram was then completed. The ductal system was markedly dilated distinct filling defects identified. Contrast extended to the distal common duct but only minimal contrast was witnessed flowing into the duodenum. The anatomy appeared normal though dilated. [facility], provided an intraoperative region and concurred with these findings. A distinct stone in the distal common duct was not identified. The cholangiocatheter was removed, the cystic duct clipped and divided. The cystic artery was clipped twice proximally, once distally and divided. The gallbladder was dissected from the liver bed using Ethicon harmonic sima. Once from the liver bed, the gallbladder was placed in an endoscopic pouch and removed through the infraumbilical opening. The gallbladder was retrieved and sent to pathology for analysis. Stones were evident within the gallbladder. The laparoscope was reinserted via the infraumbilical port. There was copious blood and clot that had accumulated in the gallbladder fossa as well as collecting around the liver. This was repeatedly suctioned only to reaccumulate. A specific bleeding site was not identified but hemostasis proved elusive. The patient was on Xarelto prior to this hospital admission. Mayra was applied to the gallbladder fossa without achieving adequate hemostasis. I deemed it necessary to achieve adequate hemostasis via open celiotomy. Several milliliters of 0.25% bupivacaine with 1- 200,000 epinephrine was infiltrated along the subcostal margin. The skin was incised. Action was extended to the anterior rectus sheath. Bleeding points were controlled with electrocautery. The anterior rectus sheath and right rectus abdominis muscles divided with the aid of electrocautery. The posterior rectus sheath was elevated and incised allowing atraumatic entry into the abdominal cavity. Exposure was facilitated by an Omni-Tract retractor. Lap sponges were applied to the gallbladder fossa. The accumulated blood and clot was evacuated. No distinct bleeding points were identified; the hepatobiliary tree and vasculature appeared to be intact. The lap sponges were removed, Avitene was applied to the liver surfaces that demonstrated continued bleeding and dry lap sponges were again applied. After several minutes. Hemostasis appeared adequate. No other abnormalities were detected. A 7 mm Broderick-Pruett drain was placed in the gallbladder fossa and exited through one of the remaining port sites right anterior abdominal wall. This drain was secured in place with 3-0 silk. The liver bed remained dry. The fascia of the infra umbilical port was closed with interrupted ) Vicryl. Closure of the subcosttal incisions was then initiated. Bupivacaine with epinephrine was infiltrated into each of the fascial layers as they were closed. The posterior rectus sheath was closed with the peritoneum using running interlocking 0 Vicryl. The anterior rectus sheath was approximated with interrupted [id number] 0 Vicryl. The subcutaneous tissue was approximated with running 3-0 Vicryl. The skin edges were approximated with slime. Dry sterile dressings were applied. The patient was taken to recovery in stable condition. Needle, sponge, instrument counts were correct at the close of the case. Total volume of 0.25% bupivacaine with 1 200,000 units epinephrine used, 48 mL.
[2017-07-22] MEDS: Ringers Solution, Lactated 1,000 ML IVC SCH (18:29)
--- NOTE | 2017-07-22 18:47 | Anesthesia Evaluation Post Op ---
Date of Encounter: 07/22/17 Time of Encounter: 17:05 Notes: Patient's vital signs have been reviewed. Patient is stable postoperatively and has adequately recovered from anesthesia. Patient is determined to have stable airway patency and respiratory function including respiratory rate and oxygen saturation. Patient has a stable heart rate, blood pressure and adequate hydration. Patients mental status is acceptable. Patients temperature is appropriate. Pain and nausea are adequately controlled. - Discharge PostOp Status: Transfer Patient to floor
[2017-07-22] MEDS: traZODone 50 MG TABLET PO SCH (21:39)
[2017-07-22] MEDS: ALPRAZolam 1 MG TABLET PO PRN (21:43)
[2017-07-23 05:46] LABS: Hematocrit 33.9 % (35.3-44.9); Immature Granulocytes % 0.4 % (0-4); Lymphocytes # 0.6 K/mcL (0.6-4.6); Lymphocytes % 6.8 %; Mean Corpuscular HGB Conc 32.2 g/dL (31.6-35.5); Mean Corpuscular Hemoglobin 29.2 pg (28.0-33.3); Mean Corpuscular Volume 90.9 fL (83.0-100.0); Mean Platelet Volume 10.4 fL (9.4-12.4); Monocytes # 0.4 K/mcL (0.0-1.3); Monocytes % 4.6 %; Platelet Count 202 K/mcL (140-400); Red Blood Count 3.73 M/mcL (3.82-4.97); Segmented Neutrophils % 88.2 %
[2017-07-23 05:59] LABS: Hemoglobin 10.9 g/dL (11.5-15.4)
[2017-07-23 06:03] LABS: Alanine Aminotransferase 51 Units/L (7-52); Albumin 2.9 g/dL (3.5-5.7); Albumin/Globulin Ratio 1.3 (1.1-2.2); Alkaline Phosphatase 66 Units/L (34-104); Aspartate Amino Transferase 71 Units/L (13-39); BUN/Creatinine Ratio 17 (6-26); Bilirubin,Total 0.4 mg/dL (0.3-1.0); Blood Urea Nitrogen 10 mg/dL (8-23); Calcium 8.4 mg/dL (8.6-10.3); Carbon Dioxide 24 mEq/L (23-29); Chloride 106 mEq/L (98-107); Globulin 2.3 g/dL (2.4-3.5); Glucose 160 mg/dL (70-105); Osmolality,Calculated 286 (280-300); Potassium 4.3 mEq/L (3.5-5.1); Sodium 137 mEq/L (136-145); Total Protein 5.2 g/dL (6.4-8.9); eGFR For African Americans > 60 (> 60); eGFR For Non-African Americans > 60 (> 60)
[2017-07-23] MEDS: Ringers Solution, Lactated 1,000 ML IVC SCH ×2 (06:14→21:20)
[2017-07-23] MEDS: *HR* OxyCODONE Immed Rel 5 MG TABLET PO PRN ×3 (06:14→23:29)
[2017-07-23] MEDS: Acetaminophen 325 MG TABLET PO PRN (06:14)
[2017-07-23] MEDS ORDERED: *HR* OxyCODONE Immed Rel 5 MG TABLET PO ONE (08:56)
[2017-07-23] MEDS: Metoprolol XL (24 HR) Succ 25 MG TAB.ER.24H PO SCH (09:15)
[2017-07-23] MEDS: Furosemide 20 MG TABLET PO SCH (09:23)
[2017-07-23] MEDS: Aspirin 81 MG TAB.CHEW PO SCH (09:23)
--- NOTE | 2017-07-23 10:02 | General Surgery Progress Note ---
Date of Encounter: 07/23/17 Time of Encounter: 09:55 Subjective Patient reports: still having pain (pleuritic pain) Narrative: General Surgery - POD #1 Patient complaining of right-sided pleuritic pain. No nausea or vomiting. Afebrile, 97.3; pulse 75-84, respirations 15-18; blood pressure 108/75 Lungs: Clear bilaterally though poor inspiratory effort Cardiac: Regular rate, no appreciable murmurs Abdomen: Soft with minimal tenderness in the right upper quadrant. No peritoneal signs or rebound. Active bowel sounds. Subcostal incision and port sites clean and dry. DEBORA output approximately 40 mL since surgery. Urine output: 400 mL for calendar day 07/22/17; 300 mL so far today. Laboratories: White count 9.1, hemoglobin 10.9 with hematocrit 33.9 - reduced H& H consistent with intraoperative blood loss is. Differential within normal limits with resolution of the neutrophilia. Electrolytes stable and within normal limits. Bilirubin 0.4, AST 71, ALT 51, alkaline phosphatase 66. - The elevated AST likely due to surgery; it is expected to resolve Operative pathology pending Impression: POD#1 - status post laparoscopic cholecystectomy with intraoperative cholangiogram, celiotomy for hemostasis. Postoperative anemia related to acute blood loss Acceptable postoperative status Postoperative pain - will increase narcotic pain control next 24-48 hours and wean as patient recovers Monitor LFTs - intraoperative cholangiogram suggestive of distal common duct obstruction CAD/history coronary stent(s) - cardiac status appears stable History of PE Atrial fibrillation with chronic anticoagulation (Xarelto) - the anticoagulation contributed to the intra operative blood loss. Current heart rate -regular Objective Vital Signs - Last 8 Hours Temp Pulse Resp BP Pulse Ox 07/23/17 06:09 97.3 F L 75 15 108/75 93 Intake and Output 07/22/17 07/23/17 07/23/17 23:59 07:59 15:59 Intake Total 1000 / 1000 Output Total 40 / 540 300 / 300 Balance -40 / -540 700 / 700 Intake: IV Fluids 1000 / 1000 Lactated Ringers 1,000 ML @ 75 1000 / 1000 mls/hr IVC .[id number] ROMA Rx#: [id number] Oral 0 / 0 Output: Urine 300 / 300 Wound Drainage 40 / 40 Right Upper Abdomen 40 / 40 - Labs 07/23/17 05:20 07/23/17 05:20 Diabetes panel 07/23/17 Range/Units 05:20 Sodium 137 (136-145) mEq/L Potassium 4.3 (3.5-5.1) mEq/L Chloride 106 (98-107) mEq/L Carbon Dioxide 24 (23-29) mEq/L BUN 10 (8-23) mg/dL Creatinine 0.58 L (0.60-1.20) mg/dL Glucose 160 H (70-105) mg/dL Calcium 8.4 L (8.6-10.3) mg/dL AST 71 H (13-39) Units/L ALT 51 (7-52) Units/L Alkaline Phosphatase 66 (34-104) Units/L Albumin 2.9 L (3.5-5.7) g/dL Calcium panel 07/23/17 Range/Units 05:20 Calcium 8.4 L (8.6-10.3) mg/dL Albumin 2.9 L (3.5-5.7) g/dL Pituitary panel 07/23/17 Range/Units 05:20 Sodium 137 (136-145) mEq/L Potassium 4.3 (3.5-5.1) mEq/L Chloride 106 (98-107) mEq/L Carbon Dioxide 24 (23-29) mEq/L BUN 10 (8-23) mg/dL Creatinine 0.58 L (0.60-1.20) mg/dL Glucose 160 H (70-105) mg/dL Calcium 8.4 L (8.6-10.3) mg/dL Adrenal panel 07/23/17 Range/Units 05:20 Sodium 137 (136-145) mEq/L Potassium 4.3 (3.5-5.1) mEq/L Chloride 106 (98-107) mEq/L Carbon Dioxide 24 (23-29) mEq/L BUN 10 (8-23) mg/dL Creatinine 0.58 L (0.60-1.20) mg/dL Glucose 160 H (70-105) mg/dL Calcium 8.4 L (8.6-10.3) mg/dL Total Bilirubin 0.4 (0.3-1.0) mg/dL AST 71 H (13-39) Units/L ALT 51 (7-52) Units/L Alkaline Phosphatase 66 (34-104) Units/L Albumin 2.9 L (3.5-5.7) g/dL - VTE Documentation of Mechanical Device: Intermittent pneumatic compression device Consult Discharge Plan - Plan Referrals: Erasmo Bera MD [Non-Partnered Physician] -
[2017-07-23] MEDS: traZODone 50 MG TABLET PO SCH (21:16)
[2017-07-23] MEDS: ALPRAZolam 1 MG TABLET PO PRN (21:18)
[2017-07-24] MEDS: *HR* OxyCODONE Immed Rel 5 MG TABLET PO PRN ×3 (05:39→17:52)
[2017-07-24] MEDS: Ringers Solution, Lactated 1,000 ML IVC SCH ×2 (05:41→20:45)
[2017-07-24 07:00] LABS: Basophils % 0.2 %; Eosinophils % 0.2 %; Hematocrit 37.5 % (35.3-44.9); Hemoglobin 11.9 g/dL (11.5-15.4); Immature Granulocytes % 0.4 % (0-4); Lymphocytes # 1.8 K/mcL (0.6-4.6); Lymphocytes % 19.5 %; Mean Corpuscular HGB Conc 31.7 g/dL (31.6-35.5); Mean Corpuscular Hemoglobin 28.7 pg (28.0-33.3); Mean Corpuscular Volume 90.6 fL (83.0-100.0); Mean Platelet Volume 10.5 fL (9.4-12.4); Monocytes # 0.9 K/mcL (0.0-1.3); Monocytes % 9.2 %; Neutrophils # 6.6 K/mcL (1.6-8.9); Platelet Count 206 K/mcL (140-400); Red Blood Count 4.14 M/mcL (3.82-4.97); Segmented Neutrophils % 70.5 %
[2017-07-24 07:23] LABS: Albumin 3.1 g/dL (3.5-5.7); Albumin/Globulin Ratio 1.2 (1.1-2.2); Bilirubin,Direct 0.3 mg/dL (0.0-0.2); Bilirubin,Indirect 0.2 mg/dL (0.0-1.2); Bilirubin,Total 0.5 mg/dL (0.3-1.0); Globulin 2.6 g/dL (2.4-3.5); Total Protein 5.7 g/dL (6.4-8.9)
[2017-07-24] MEDS: Aspirin 81 MG TAB.CHEW PO SCH (09:40)
[2017-07-24] MEDS: Furosemide 20 MG TABLET PO SCH (09:40)
[2017-07-24] MEDS: Metoprolol XL (24 HR) Succ 25 MG TAB.ER.24H PO SCH (09:41)
--- NOTE | 2017-07-24 12:46 | General Surgery Progress Note ---
Date of Encounter: 07/24/17 Time of Encounter: 12:37 Subjective Patient reports: no new complaints, feels better, tolerating a regular diet Narrative: General Surgery - POD #2 Pleuritic pain resolved; patient still complaining of feeling weak and easily fatigued. Incisional pain improved. Tolerating diet, no nausea or vomiting Afebrile, 98.2, pulse 78, respirations 16, blood pressure 109/70. SPO2 on 3 L/m nasal cannula 96% Lungs: Better inspiratory effort; lung ziegler clear. Patient still requires supplemental oxygen to maintain SPO2 96% Abdomen: Soft, less incisional tenderness. Incision intact, clean and dry. Active bowel sounds. DEBORA, 125 mL for calendar day 07/23/17; 60 mL so far today - sanguinous fluid , no evidence of bile Urine output: 2050 mL for calendar day 07/23/17; 800 mL so far today Laboratories: White count 9.4, hemoglobin has rebounded to 11.9 with hematocrit 37.5. (Previously 10.9/33.9). Patient appears to be mobilizing the perioperative fluids. The anemia appears to be related to these IV fluids/ dilution. Differential within normal limits. Operative pathology: Pending Impression/Plan: Postoperative day 2, status post laparoscopic cholecystectomy with intraoperative cholangiogram; celiotomy for hemostasis. Acute calculus cholecystitis - patient appears to be doing well postop; no obvious postoperative recurrent hemorrhage from the liver bed. Hypertension - stable History of atrial fibrillation and chronic anticoagulation - will check EKG but the clinical examination heart rate has been regular Generalized anxiety/depression - patient appears to be at baseline Reduce pain meds Encourage activity out of bed Objective Vital Signs - Last 8 Hours Temp Pulse Resp BP Pulse Ox 07/24/17 11:00 98.2 F 78 16 109/70 96 07/24/17 09:30 100/64 07/24/17 08:30 96 07/24/17 07:00 97.8 F 77 17 99/57 96 07/24/17 04:48 98.1 F 77 15 111/70 94 Intake and Output 07/23/17 07/24/17 07/24/17 23:59 07:59 15:59 Intake Total 240 / 240 0 / 0 0 / 0 Output Total 1120 / 1120 420 / 420 440 / 440 Balance -880 / -880 -420 / -420 -440 / -440 Intake: Oral 240 / 240 0 / 0 0 / 0 Output: Urine 1100 / 1100 400 / 400 400 / 400 Wound Drainage 20 40 / 40 Right Upper Abdomen 40 / 40 Other: Meal Breakfast Percent of Meal Consumed 100% Weight 85.1 kg Patient Weight 07/24/17 23:59 Weight 85.1 kg - Labs 07/24/17 06:19 07/23/17 05:20 Diabetes panel 07/24/17 Range/Units 06:19 AST 42 H (13-39) Units/L ALT 41 (7-52) Units/L Alkaline Phosphatase 70 (34-104) Units/L Albumin 3.1 L (3.5-5.7) g/dL Calcium panel 07/24/17 Range/Units 06:19 Albumin 3.1 L (3.5-5.7) g/dL Adrenal panel 07/24/17 Range/Units 06:19 Total Bilirubin 0.5 (0.3-1.0) mg/dL AST 42 H (13-39) Units/L ALT 41 (7-52) Units/L Alkaline Phosphatase 70 (34-104) Units/L Albumin 3.1 L (3.5-5.7) g/dL - VTE Documentation of Mechanical Device: Intermittent pneumatic compression device Consult Discharge Plan - Plan Referrals: Erasmo Bear MD [Non-Partnered Physician] -
[2017-07-24] MEDS: Piperacillin/Tazobactam 3.375 GM in 0.9 % Sodium Chloride Mini Bag 100 ML IVPB SCH (20:45)
[2017-07-24] MEDS: traZODone 50 MG TABLET PO SCH (20:51)
[2017-07-24] MEDS: ALPRAZolam 1 MG TABLET PO PRN (20:53)
[2017-07-25] MEDS: *HR* OxyCODONE Immed Rel 5 MG TABLET PO PRN ×2 (00:12→06:22)
[2017-07-25] MEDS: Aspirin 81 MG TAB.CHEW PO SCH (10:10)
[2017-07-25] MEDS: Acetaminophen 325 MG TABLET PO PRN (10:10)
[2017-07-25] MEDS: Furosemide 20 MG TABLET PO SCH (10:11)
[2017-07-25] MEDS: Metoprolol XL (24 HR) Succ 25 MG TAB.ER.24H PO SCH (10:11)
--- NOTE | 2017-07-25 16:56 | General Surgery Progress Note ---
Date of Encounter: 07/25/17 Time of Encounter: 16:15 Subjective Patient reports: no new complaints, still having pain Narrative: General Surgery - POD #3 Patient still complaining of subcostal incisional pain. This is severely impacting her inspiratory volume as well as her activity out of bed Maximum temperature 99.5, pulse is high as 101 but usual range 71-81; respiratory rate 14 and 17, blood pressure 124/83 Lungs: Clear; moderate inspiratory effort. Weak ineffective cough Cardiac: Regular rate; EKG dated 07/21/17 shows sinus rhythm with first- degree AV block; right bundle cabrera block and left anterior fascicular block. EKG completed 07/24/17, compared to EKG dated 07/21/17 - no new findings. Full report still pending Abdomen: Patient complaining of the subcostal abdominal wall mass - not identified on physical examination however it appears to be the divided Right rectus abdominis muscle. Minimal abdominal pain to palpation. Active bowel sounds. The subcostal incision is clean and healing well Broedrick-Pruett: 100 mL serosanguineous fluid recorded so far today Operative pathology: Acute and chronic cholecystitis, no calculi identified. Stones were palpated within the gallbladder at the time of surgery but not identified pathologically Impression: POD #3, status post laparoscopic cholecystectomy and intraoperative cholangiogram; celiotomy for hemostasis Acceptable postoperative state. Patient remains oxygen dependent. Patient requires considerable encouragement to be active out of bed and to complete her incentive spirometry History of PE. Will resume Xarelto and monitor for bleeding from the liver bed. Objective Vital Signs - Last 8 Hours Temp Pulse Resp BP Pulse Ox 07/25/17 14:58 98.7 F 81 14 96/59 95 07/25/17 11:02 99.5 F 101 17 124/83 95 Intake and Output 07/25/17 07/25/17 07/25/17 07:59 15:59 23:59 Intake Total 150 / 150 420 / 420 Output Total 410 / 410 340 / 340 Balance -260 / -260 80 / 80 Intake: Oral 150 / 150 420 / 420 Output: Urine 350 / 350 300 / 300 Wound Drainage 60 / 60 40 / 40 Right Upper Abdomen 60 / 60 40 / 40 Other: Meal Lunch Percent of Meal Consumed 10% Weight 85 kg Patient Weight 07/25/17 23:59 Weight 85 kg - Labs 07/24/17 06:19 07/23/17 05:20 - VTE Documentation of Mechanical Device: Intermittent pneumatic compression device Consult Discharge Plan - Plan Referrals: Erasmo Bear MD [Non-Partnered Physician] -
[2017-07-25] MEDS: *HR* OxyCODONE/APAP 5/325 TABLET PO PRN (19:08)
[2017-07-25] MEDS: Albuterol 2.5 MG/3 ML NEBULIZER IH SCH ×2 (20:02→21:24)
[2017-07-25] MEDS: ALPRAZolam 1 MG TABLET PO PRN (21:59)
[2017-07-25] MEDS: *HR* Rivaroxaban 10 MG TABLET PO SCH (21:59)
[2017-07-25] MEDS: traZODone 50 MG TABLET PO SCH (21:59)
[2017-07-26 01:27] LABS: Basophils % 0.2 %; Eosinophils % 0.2 %; Hematocrit 33.2 % (35.3-44.9); Hemoglobin 10.5 g/dL (11.5-15.4); Immature Granulocytes % 0.4 % (0-4); Lymphocytes # 1.7 K/mcL (0.6-4.6); Lymphocytes % 13.5 %; Mean Corpuscular HGB Conc 31.6 g/dL (31.6-35.5); Mean Corpuscular Hemoglobin 28.3 pg (28.0-33.3); Mean Corpuscular Volume 89.5 fL (83.0-100.0); Mean Platelet Volume 9.7 fL (9.4-12.4); Monocytes # 1.3 K/mcL (0.0-1.3); Neutrophils # 9.5 K/mcL (1.6-8.9); Platelet Count 240 K/mcL (140-400); Red Blood Count 3.71 M/mcL (3.82-4.97); Red Cell Distribution Width 13.9 % (11.5-14.5); Segmented Neutrophils % 75.7 %
[2017-07-26 01:47] LABS: BUN/Creatinine Ratio 12 (6-26); Blood Urea Nitrogen 9 mg/dL (8-23); Calcium 8.5 mg/dL (8.6-10.3); Carbon Dioxide 31 mEq/L (23-29); Chloride 97 mEq/L (98-107); Glucose 118 mg/dL (70-105); Osmolality,Calculated 284 (280-300); Potassium 3.1 mEq/L (3.5-5.1); Sodium 137 mEq/L (136-145); eGFR For African Americans > 60 (> 60); eGFR For Non-African Americans > 60 (> 60)
[2017-07-26] MEDS: *HR* OxyCODONE/APAP 5/325 TABLET PO PRN ×2 (03:37→18:27)
[2017-07-26] MEDS: Albuterol 2.5 MG/3 ML NEBULIZER IH SCH ×3 (03:53→16:15)
[2017-07-26] MEDS: Aspirin 81 MG TAB.CHEW PO SCH (09:58)
[2017-07-26] MEDS: Metoprolol XL (24 HR) Succ 25 MG TAB.ER.24H PO SCH (09:58)
[2017-07-26] MEDS: Furosemide 20 MG TABLET PO SCH (09:58)
[2017-07-26] MEDS: Acetaminophen 325 MG TABLET PO PRN (11:14)
[2017-07-26] MEDS ORDERED: 0.9 % Sodium Chloride 500 ML IVC ONE (13:47)
--- NOTE | 2017-07-26 17:00 | General Surgery Progress Note ---
Date of Encounter: 07/26/17 Time of Encounter: 16:25 Subjective Narrative: General Surgery - POD #4 Patient continues to complain of subcostal incisional pain. This was exacerbated by ambulation and activity out of bed. The patient was also complaining of feeling poorly. Nursing describes patient was uncooperative with incentive spirometry as well as the prescribed aerosolized albuterol. When discussed with the patient, the patient complained that albuterol "caused her to be shaky" Examination does not corroborate these complaints. The patient remains afebrile; pulse 72-90, respirations 16-20; blood pressure has been low - 90/57 but rebounding with IV fluids to 103/67. Patient continues to require 2-3 L/m nasal cannula to maintain saturations 94-96% Lungs: Diminished bibasilar breath sounds; poor inspiratory effort, weak, nonexisting cough Cardiac: Regular rate, no appreciable murmurs Abdomen: Soft, no obvious tenderness. The subcostal incision remains clean and dry. Palpation around this incision did not elicit any pain response. No obvious rebound or peritoneal signs. Active bowel sounds DEBORA drainage: 120 mL for calendar day 07/25/17; 50 mL so far today. No obvious increase in sanguinous output following initiation Xarelto Oral intake has been marginal, patient is complaining of food having no taste; Urine output: 500 mL's recorded for this date however urine is described as quite concentrated Impression: Postoperative day #4, status post laparoscopic cholecystectomy with intraoperative cholangiogram; open celiotomy for hemostasis from the liver bed Patient with a myriad of complaints - none elicited on physical examination Poor inspiratory effort. Due to the effects of albuterol, we will prescribe Xopenex. Continue efforts with incentive spirometry and activity out of bed Hypotension - hold losartan; resume peripheral IV at 60 mL (D5/0.45) per hour Leukocytosis - 12.6 with neutrophilia 9.5 without detected fever - will continue to monitor and recheck in a.m. Hemoglobin 10.5, hematocrit 33.2 - recurrent anemia possibly due to IV fluids. Monitor for bleeding related to initiation of Xarelto Hypokalemia - oral supplementation administered Objective Vital Signs - Last 8 Hours Temp Pulse Resp BP Pulse Ox 07/26/17 16:06 98.2 F 72 18 103/67 96 07/26/17 13:35 98.2 F 78 20 90/57 94 07/26/17 10:38 98.9 F 90 16 96/64 95 Intake and Output 07/26/17 07/26/17 07/26/17 07:59 15:59 23:59 Intake Total 0 / 0 740 / 740 Output Total 330 / 330 200 / 200 Balance -20 / -20 410 / 410 -200 / -200 Intake: IV Fluids 500 / 500 0.9 % Sodium Chloride 500 ML @ 500 / 500 500 mls/hr IVC .Q1H ONE Rx#: [id number] Oral 0 / 0 240 / 240 Output: Urine 0 / 0 300 / 300 200 / 200 Wound Drainage 30 / 30 Right Upper Abdomen Other: Meal Lunch Percent of Meal Consumed 5% Weight 85.4 kg Patient Weight 07/26/17 23:59 Weight 85.4 kg - Labs 07/26/17 01:10 07/26/17 01:10 Diabetes panel 07/26/17 Range/Units 01:10 Sodium 137 (136-145) mEq/L Potassium 3.1 L (3.5-5.1) mEq/L Chloride 97 L (98-107) mEq/L Carbon Dioxide 31 H (23-29) mEq/L BUN 9 (8-23) mg/dL Creatinine 0.75 (0.60-1.20) mg/dL Glucose 118 H (70-105) mg/dL Calcium 8.5 L (8.6-10.3) mg/dL Calcium panel 07/26/17 Range/Units 01:10 Calcium 8.5 L (8.6-10.3) mg/dL Pituitary panel 07/26/17 Range/Units 01:10 Sodium 137 (136-145) mEq/L Potassium 3.1 L (3.5-5.1) mEq/L Chloride 97 L (98-107) mEq/L Carbon Dioxide 31 H (23-29) mEq/L BUN 9 (8-23) mg/dL Creatinine 0.75 (0.60-1.20) mg/dL Glucose 118 H (70-105) mg/dL Calcium 8.5 L (8.6-10.3) mg/dL Adrenal panel 07/26/17 Range/Units 01:10 Sodium 137 (136-145) mEq/L Potassium 3.1 L (3.5-5.1) mEq/L Chloride 97 L (98-107) mEq/L Carbon Dioxide 31 H (23-29) mEq/L BUN 9 (8-23) mg/dL Creatinine 0.75 (0.60-1.20) mg/dL Glucose 118 H (70-105) mg/dL Calcium 8.5 L (8.6-10.3) mg/dL - VTE Documentation of Mechanical Device: Intermittent pneumatic compression device Consult Discharge Plan - Plan Referrals: Erasmo Bear MD [Non-Partnered Physician] -
[2017-07-26] MEDS: Levalbuterol Neb 1.25 MG/3 ML IH SCH ×2 (17:06→21:15)
[2017-07-26] MEDS: *HR* Rivaroxaban 10 MG TABLET PO SCH (17:49)
[2017-07-26] MEDS: D5% in 0.45% NACL 1,000 ML IVC SCH (17:49)
[2017-07-26] MEDS: traZODone 50 MG TABLET PO SCH (20:34)
[2017-07-27] MEDS: Acetaminophen 325 MG TABLET PO PRN ×2 (00:03→11:40)
[2017-07-27] MEDS: Levalbuterol Neb 1.25 MG/3 ML IH SCH ×4 (03:36→22:08)
[2017-07-27] MEDS: *HR* OxyCODONE/APAP 5/325 TABLET PO PRN ×2 (04:16→12:59)
[2017-07-27 05:11] LABS: Basophils % 0.2 %; Eosinophils # 0.1 K/mcL (0.0-0.6); Eosinophils % 1.3 %; Hematocrit 26.4 % (35.3-44.9); Hemoglobin 8.5 g/dL (11.5-15.4); Immature Granulocytes % 0.6 % (0-4); Lymphocytes # 1.1 K/mcL (0.6-4.6); Mean Corpuscular HGB Conc 32.2 g/dL (31.6-35.5); Mean Corpuscular Hemoglobin 28.5 pg (28.0-33.3); Mean Corpuscular Volume 88.6 fL (83.0-100.0); Mean Platelet Volume 9.8 fL (9.4-12.4); Monocytes # 0.4 K/mcL (0.0-1.3); Monocytes % 4.8 %; Neutrophils # 7.5 K/mcL (1.6-8.9); Platelet Count 281 K/mcL (140-400); Red Blood Count 2.98 M/mcL (3.82-4.97); Red Cell Distribution Width 14.1 % (11.5-14.5); Segmented Neutrophils % 81.1 %
[2017-07-27 05:20] LABS: Alanine Aminotransferase 17 Units/L (7-52); Albumin 2.5 g/dL (3.5-5.7); Alkaline Phosphatase 57 Units/L (34-104); Aspartate Amino Transferase 15 Units/L (13-39); BUN/Creatinine Ratio 14 (6-26); Bilirubin,Direct 0.2 mg/dL (0.0-0.2); Bilirubin,Indirect 0.2 mg/dL (0.0-1.2); Bilirubin,Total 0.4 mg/dL (0.3-1.0); Blood Urea Nitrogen 11 mg/dL (8-23); Calcium 8.1 mg/dL (8.6-10.3); Carbon Dioxide 31 mEq/L (23-29); Chloride 100 mEq/L (98-107); Globulin 2.6 g/dL (2.4-3.5); Glucose 126 mg/dL (70-105); Osmolality,Calculated 285 (280-300); Potassium 3.3 mEq/L (3.5-5.1); Sodium 137 mEq/L (136-145); Total Protein 5.1 g/dL (6.4-8.9); eGFR For African Americans > 60 (> 60); eGFR For Non-African Americans > 60 (> 60)
[2017-07-27] MEDS: Aspirin 81 MG TAB.CHEW PO SCH (09:17)
[2017-07-27] MEDS: Metoprolol XL (24 HR) Succ 25 MG TAB.ER.24H PO SCH ×2 (09:18→12:27)
[2017-07-27] MEDS: Furosemide 20 MG TABLET PO SCH ×2 (09:18→09:40)
[2017-07-27] MEDS: D5% in 0.45% NACL 1,000 ML IVC SCH ×2 (11:36→13:05)
--- NOTE | 2017-07-27 12:41 | General Surgery Progress Note ---
Date of Encounter: 07/27/17 Time of Encounter: 12:31 Subjective Patient reports: no new complaints, feels better Narrative: General Surgery - POD #5 Feeling better; no complaints of pain; Xopenex causing some tremulousness. Appetite still diminished with poor oral intake. No nausea or vomiting. Maximum temperature 99.7; pulse 97, ranging 71-97; respiratory rate 18-20, BP early this morning 83/58; currently 122/55. Lungs: Clear to auscultation with better inspiratory effort. Still requiring supplemental oxygen at 2 L/m to maintain saturations 91-96% Chest x-ray shows scattered bilateral streaky atelectasis; no obvious pleural effusions Abdomen: Soft, nontender. Subcostal incision intact, clean and dry. No peritoneal signs or rebound. Active bowel sounds DEBORA output 50 mL for calendar day 07/26/17; 20 mL so far today Abdominal x-rays show normal gas pattern without small bowel or colonic distention. Gas throughout the colon extending to the rectum. Urine output markedly increased d/t IV fluids, approximately 1000 mL for calendar day 07/26/17; 1100 so far today. Laboratories: Leukocytosis resolved along with the neutrophilia; currently 9.2. Hemoglobin 8.5 with hematocrit 26.4 - likely due to the IV fluids Electrolytes persistent hypokalemia 3.3. Other electrolytes, BUN, creatinine acceptable. LFTs remained normal; total serum protein 5.1 with albumin 2.5. Impression: POD #5, s/p laparoscopic cholecystectomy with intraoperative cholangiogram; open celiotomy and control bleeding from the liver bed No new complaints except for tremulousness which the patient attributes to Xopenex Improved pulmonary status Hypertension has responded to IV fluids and reduction of antihypertensives Leukocytosis resolved Anemia - likely due to dilution secondary to IV fluids however the patient is on Xarelto. Will hold this med Hypokalemia - continue oral supplements Objective Vital Signs - Last 8 Hours Temp Pulse Resp BP Pulse Ox 07/27/17 10:37 97.8 F 97 20 122/55 91 07/27/17 09:30 77 18 116/76 96 07/27/17 06:23 98.1 F 71 16 94/56 95 Intake and Output 07/26/17 07/27/17 07/27/17 23:59 07:59 15:59 Intake Total 600 / 600 1060 / 1060 Output Total 700 / 700 820 / 820 300 / 300 Balance -100 / -100 -820 / -820 760 / 760 Intake: IV Fluids 1000 / 1000 D5% And 0.45% Nacl 1000 Ml Bag 1000 / 1000 1,000 ML @ 60 mls/hr IVC . [id number] [facility] Rx#:[id number] Oral 600 / 600 60 / 60 Output: Urine 700 / 700 800 / 800 300 / 300 Wound Drainage 0 / 0 20 / 20 0 / 0 Right Upper Abdomen 0 / 0 20 / 20 0 / 0 Other: Meal Dinner Breakfast Percent of Meal Consumed 0% 10% - Labs 07/27/17 03:42 07/27/17 03:42 Diabetes panel 07/27/17 Range/Units 03:42 Sodium 137 (136-145) mEq/L Potassium 3.3 L (3.5-5.1) mEq/L Chloride 100 (98-107) mEq/L Carbon Dioxide 31 H (23-29) mEq/L BUN 11 (8-23) mg/dL Creatinine 0.76 (0.60-1.20) mg/dL Glucose 126 H (70-105) mg/dL Calcium 8.1 L (8.6-10.3) mg/dL AST 15 (13-39) Units/L ALT 17 (7-52) Units/L Alkaline Phosphatase 57 (34-104) Units/L Albumin 2.5 L (3.5-5.7) g/dL Calcium panel 07/27/17 Range/Units 03:42 Calcium 8.1 L (8.6-10.3) mg/dL Albumin 2.5 L (3.5-5.7) g/dL Pituitary panel 07/27/17 Range/Units 03:42 Sodium 137 (136-145) mEq/L Potassium 3.3 L (3.5-5.1) mEq/L Chloride 100 (98-107) mEq/L Carbon Dioxide 31 H (23-29) mEq/L BUN 11 (8-23) mg/dL Creatinine 0.76 (0.60-1.20) mg/dL Glucose 126 H (70-105) mg/dL Calcium 8.1 L (8.6-10.3) mg/dL Adrenal panel 07/27/17 Range/Units 03:42 Sodium 137 (136-145) mEq/L Potassium 3.3 L (3.5-5.1) mEq/L Chloride 100 (98-107) mEq/L Carbon Dioxide 31 H (23-29) mEq/L BUN 11 (8-23) mg/dL Creatinine 0.76 (0.60-1.20) mg/dL Glucose 126 H (70-105) mg/dL Calcium 8.1 L (8.6-10.3) mg/dL Total Bilirubin 0.4 (0.3-1.0) mg/dL AST 15 (13-39) Units/L ALT 17 (7-52) Units/L Alkaline Phosphatase 57 (34-104) Units/L Albumin 2.5 L (3.5-5.7) g/dL - VTE Documentation of Mechanical Device: Intermittent pneumatic compression device Consult Discharge Plan - Plan Referrals: Erasmo Bear MD [Non-Partnered Physician] -
[2017-07-27] MEDS: ALPRAZolam 0.5 MG TABLET PO PRN (20:50)
[2017-07-27] MEDS: traZODone 50 MG TABLET PO SCH (20:51)
[2017-07-28 01:47] LABS: Basophils % 0.2 %; Eosinophils # 0.2 K/mcL (0.0-0.6); Eosinophils % 1.5 %; Hematocrit 27.6 % (35.3-44.9); Immature Granulocytes % 0.7 % (0-4); Lymphocytes # 1.5 K/mcL (0.6-4.6); Mean Corpuscular HGB Conc 32.6 g/dL (31.6-35.5); Mean Corpuscular Hemoglobin 28.9 pg (28.0-33.3); Mean Corpuscular Volume 88.7 fL (83.0-100.0); Mean Platelet Volume 9.8 fL (9.4-12.4); Monocytes # 0.8 K/mcL (0.0-1.3); Monocytes % 7.3 %; Neutrophils # 8.6 K/mcL (1.6-8.9); Platelet Count 318 K/mcL (140-400); Red Blood Count 3.11 M/mcL (3.82-4.97); Red Cell Distribution Width 14.3 % (11.5-14.5); Segmented Neutrophils % 77.3 %
[2017-07-28] MEDS: *HR* OxyCODONE/APAP 5/325 TABLET PO PRN ×2 (03:40→16:55)
[2017-07-28] MEDS: Levalbuterol Neb 1.25 MG/3 ML IH SCH ×4 (04:10→22:58)
--- NOTE | 2017-07-28 06:34 | Electrocardiograph Report ---
[address] [address] Test Date: 2017-07-24 Pat Name: Zaina Cee Department: 115 Room: 3A Gender: F Sole Stainer: ANTONINA : 1940 Requested By: Erasmo Bear Order Number: [id number] Reading MD: Joseph Pink Measurements Intervals [place] Rate: 69 P: 35 MS: 209 QRS: -40 QRSD: 150 T: 9 QT: 426 QTc: 445 Interpretive Statements SINUS RHYTHM MARKED LEFT AXIS DEVIATION RIGHT BUNDLE BRANCH BLOCK VOLTAGE CRITERIA FOR LVH Poor R wave progression Electronically Signed On 07-28-2017 6:33:28 EDT by Joseph Pink
--- NOTE | 2017-07-28 06:34 | Electrocardiograph Report ---
[address] [address] Test Date: 2017-07-24 Pat Name: Zaina Cee Department: 115 Room: 3A Gender: F Clinical Laboratory Aide: ANTONINA : 1940 Requested By: Erasmo Bear Order Number: [id number] Reading MD: Joseph Pink Measurements Intervals [place] Rate: 73 P: 31 AR: 207 QRS: -38 QRSD: 148 T: 17 QT: 415 QTc: 441 Interpretive Statements SINUS RHYTHM MARKED LEFT AXIS DEVIATION RIGHT BUNDLE BRANCH BLOCK VOLTAGE CRITERIA FOR LVH Electronically Signed On 07-28-2017 6:33:11 EDT by Joseph Pink
[2017-07-28] MEDS: Aspirin 81 MG TAB.CHEW PO SCH (08:40)
[2017-07-28] MEDS: Furosemide 20 MG TABLET PO SCH (08:40)
[2017-07-28] MEDS: Metoprolol XL (24 HR) Succ 25 MG TAB.ER.24H PO SCH (08:40)
[2017-07-28] MEDS: Acetaminophen 325 MG TABLET PO PRN (08:40)
[2017-07-28] MEDS: D5% in 0.45% NACL 1,000 ML IVC SCH (08:41)
--- NOTE | 2017-07-28 13:17 | General Surgery Progress Note ---
Date of Encounter: 07/28/17 Time of Encounter: 13:13 Subjective Patient reports: feels better Narrative: General Surgery - POD #6 Patient continues complain of pain but on abdominal examination/palpation the exam generates little pain/tenderness Patient seated a bedside; consuming a meal. A complaints of nausea or vomiting. Afebrile, pulse 75, respirations 18, blood pressure has improved to 133/79. SPO2 on 2 L/m nasal cannula 95% Lungs: Rales audible right base; inspiratory effort significantly improved Abdomen: Soft with minimal subcostal incisional tenderness. No peritoneal signs or rebound. Active bowel sounds. Incision remains intact, clean and dry. DEBORA output twice 7 mL for calendar day 18, 10 mL so far today Impression: Postoperative day #6, status post laparoscopic cholecystectomy with intraoperative cholangiogram; open celiotomy to address liver bled bleeding Hypokalemia corrected Pulmonary status improved H&H has increased as patient mobilizing recently administered IV fluids ( currently 9.0/27.6) Anorexia appears to have resolved; oral intake improved Objective Vital Signs - Last 8 Hours Temp Pulse Resp BP Pulse Ox 07/28/17 10:47 98.6 F 75 18 133/79 95 07/28/17 06:58 98.5 F 74 18 114/71 96 07/28/17 05:35 98.6 F 78 14 107/61 95 Intake and Output 07/27/17 07/28/17 07/28/17 23:59 07:59 15:59 Intake Total 60 / 60 0 / 0 1240 / 1240 Output Total 507 / 507 510 / 510 400 / 400 Balance -447 / -447 -510 / -510 840 / 840 Intake: IV Fluids 900 / 900 D5% And 0.45% Nacl 1000 Ml Bag 900 / 900 1,000 ML @ 40 mls/hr IVC .Q24H [facility] Rx#:[id number] Oral 60 / 60 0 / 0 340 / 340 Output: Urine 500 / 500 500 / 500 400 / 400 Wound Drainage 0 / 0 Right Upper Abdomen 0 / 0 Other: Meal Dinner Breakfast Percent of Meal Consumed 5% 70% Weight 86.2 kg Patient Weight 07/28/17 23:59 Weight 86.2 kg - Labs 07/28/17 01:11 06/18/18 01:11 Diabetes panel 07/28/17 Range/Units 01:11 Potassium 4.2 D (3.5-5.1) mEq/L Pituitary panel 07/28/17 Range/Units 01:11 Potassium 4.2 D (3.5-5.1) mEq/L Adrenal panel 07/28/17 Range/Units 01:11 Potassium 4.2 D (3.5-5.1) mEq/L - VTE Documentation of Mechanical Device: Intermittent pneumatic compression device Consult Discharge Plan - Plan Referrals: Erasmo Bear MD [Non-Partnered Physician] -
[2017-07-28] MEDS: *HR* Rivaroxaban 10 MG TABLET PO SCH (16:55)
[2017-07-28] MEDS: ALPRAZolam 0.5 MG TABLET PO PRN (21:25)
[2017-07-28] MEDS: traZODone 50 MG TABLET PO SCH (21:25)
[2017-07-29] MEDS: Levalbuterol Neb 1.25 MG/3 ML IH SCH ×5 (04:47→23:35)
[2017-07-29] MEDS: Acetaminophen 325 MG TABLET PO PRN ×2 (05:13→20:10)
[2017-07-29 06:45] LABS: Hematocrit 31.1 % (35.3-44.9); Hemoglobin 10.1 g/dL (11.5-15.4)
[2017-07-29] MEDS: *HR* OxyCODONE/APAP 5/325 TABLET PO PRN (10:27)
[2017-07-29] MEDS: Metoprolol XL (24 HR) Succ 25 MG TAB.ER.24H PO SCH (10:28)
[2017-07-29] MEDS: Furosemide 20 MG TABLET PO SCH (10:28)
[2017-07-29] MEDS: Aspirin 81 MG TAB.CHEW PO SCH (10:28)
[2017-07-29] MEDS: *HR* Rivaroxaban 10 MG TABLET PO SCH (16:35)
[2017-07-29] MEDS: ALPRAZolam 0.5 MG TABLET PO PRN ×2 (16:35→20:13)
--- NOTE | 2017-07-29 18:18 | General Surgery Progress Note ---
Date of Encounter: 07/29/17 Time of Encounter: 18:11 Subjective Narrative: General Surgery - POD #7 Patient voicing no new complaints. Febrile to 101.6 this Am On exam the patient felt warm to the touch - Temp 101.8 as of this encounter ; HR 72-82; RR 16 and unlabored; BP 113/72 Lungs: Rales right base; intermittent dry cough Abdomen: Soft, nontender. Subcostal incision clean and dry. DEBORA approximately 30 mL in the last 24 hours- removed by physician Urine output 1900 mL for calendar day 07/27/17; 1100 mL so far today Labs: Hemoglobin improved to 10.1, hematocrit 31.1. Potassium 4.1 Impression: POD #7, s/p laparoscopic cholecystectomy,IOC with open celiotomy to control bleeding from the liver bed New-onset fever; rales right base - likely pneumonia Postoperative anemia; H&H improving with diuresis/mobilization of fluids. Plan: PA/lateral chest Begin Rocephin Patient requires aggressive pulmonary toilet and continued bronchodilator inhalation therapy. Check labs in a.m. Objective Vital Signs - Last 8 Hours Temp Pulse Resp BP Pulse Ox 07/29/17 18:10 101.8 F H 07/29/17 10:58 98.4 F 72 16 107/63 97 07/29/17 10:50 16 96 Intake and Output 07/29/17 07/29/17 07/29/17 07:59 15:59 23:59 Intake Total 120 / 120 120 / 120 Output Total 20 / 20 200 / 200 5 / 5 Balance 100 / 100 -80 / -80 -5 / -5 Intake: Oral 120 / 120 120 / 120 Output: Urine 0 / 0 200 / 200 Wound Drainage 20 / 20 0 / 0 5 / 5 Right Upper Abdomen 20 / 20 0 / 0 5 / 5 Other: Meal Lunch Percent of Meal Consumed 5% Weight 88.9 kg Patient Weight 07/29/17 23:59 Weight 88.9 kg - Labs 07/29/17 05:57 07/29/17 05:57 Diabetes panel 07/29/17 Range/Units 05:57 Potassium 4.1 (3.5-5.1) mEq/L Pituitary panel 07/29/17 Range/Units 05:57 Potassium 4.1 (3.5-5.1) mEq/L Adrenal panel 07/29/17 Range/Units 05:57 Potassium 4.1 (3.5-5.1) mEq/L - VTE Documentation of Mechanical Device: Intermittent pneumatic compression device Consult Discharge Plan - Plan Referrals: Erasmo Bear MD [Non-Partnered Physician] -
[2017-07-29] MEDS: cefTRIAXone 1,000 MG in Water for inj. (sterile) 20 ML 10 ML IVP SCH (19:02)
[2017-07-29] MEDS: traZODone 50 MG TABLET PO SCH (20:13)
[2017-07-30] MEDS: Levalbuterol Neb 1.25 MG/3 ML IH SCH ×3 (04:09→15:21)
[2017-07-30 05:16] LABS: Basophils % 0.2 %; Eosinophils # 0.1 K/mcL (0.0-0.6); Eosinophils % 0.8 %; Hematocrit 28.1 % (35.3-44.9); Hemoglobin 9.3 g/dL (11.5-15.4); Immature Granulocytes % 0.6 % (0-4); Lymphocytes # 2.8 K/mcL (0.6-4.6); Lymphocytes % 16.3 %; Mean Corpuscular HGB Conc 33.1 g/dL (31.6-35.5); Mean Corpuscular Hemoglobin 28.9 pg (28.0-33.3); Mean Corpuscular Volume 87.3 fL (83.0-100.0); Mean Platelet Volume 9.2 fL (9.4-12.4); Monocytes # 1.7 K/mcL (0.0-1.3); Monocytes % 9.8 %; Platelet Count 457 K/mcL (140-400); Red Blood Count 3.22 M/mcL (3.82-4.97); Red Cell Distribution Width 14.3 % (11.5-14.5); Segmented Neutrophils % 72.3 %
[2017-07-30 05:19] LABS: Neutrophils # 12.2 K/mcL (1.6-8.9)
[2017-07-30 05:36] LABS: Alanine Aminotransferase 16 Units/L (7-52); Albumin 2.5 g/dL (3.5-5.7); Albumin/Globulin Ratio 0.8 (1.1-2.2); Alkaline Phosphatase 86 Units/L (34-104); Aspartate Amino Transferase 18 Units/L (13-39); BUN/Creatinine Ratio 15 (6-26); Bilirubin,Total 0.4 mg/dL (0.3-1.0); Blood Urea Nitrogen 11 mg/dL (8-23); Calcium 8.4 mg/dL (8.6-10.3); Carbon Dioxide 29 mEq/L (23-29); Chloride 98 mEq/L (98-107); Globulin 3.1 g/dL (2.4-3.5); Glucose 112 mg/dL (70-105); Osmolality,Calculated 284 (280-300); Potassium 3.6 mEq/L (3.5-5.1); Sodium 137 mEq/L (136-145); Total Protein 5.6 g/dL (6.4-8.9); eGFR For African Americans > 60 (> 60); eGFR For Non-African Americans > 60 (> 60)
[2017-07-30] MEDS: Metoprolol XL (24 HR) Succ 25 MG TAB.ER.24H PO SCH (09:54)
[2017-07-30] MEDS: cefTRIAXone 1,000 MG in Water for inj. (sterile) 20 ML 10 ML IVP SCH (09:54)
[2017-07-30] MEDS: Furosemide 20 MG TABLET PO SCH (09:54)
[2017-07-30] MEDS: Aspirin 81 MG TAB.CHEW PO SCH (09:54)
[2017-07-30] MEDS ORDERED: Isovue-370 500 ML INFUS..BTL IV ONE (11:23)
[2017-07-30] MEDS: *HR* OxyCODONE/APAP 5/325 TABLET PO PRN (11:55)
[2017-07-30 13:29] LABS: Bilirubin,Urine Negative (Negative); Blood,Urine Negative (Negative); Clarity,Urine Clear (Clear); Color,Urine Yellow (Yellow); Glucose,Urine (UA) Normal (Normal); Ketones,Urine Negative (Negative); Leukocyte Esterase,Urine Negative (Negative); Nitrite,Urine Negative (Negative); Protein,Urine Negative (Neg-Trace); Specific Gravity,Urine 1.011 (1.010-1.025); Urobilinogen,Urine Normal (Normal)
[2017-07-30] MEDS: ALPRAZolam 0.5 MG TABLET PO PRN (16:20)
--- NOTE | 2017-07-30 16:27 | General Surgery Progress Note ---
Date of Encounter: 07/30/17 Time of Encounter: 16:20 Subjective Patient reports: no new complaints, feels better Narrative: General Surgery - POD #8 Patient feeling better, voicing no new complaints. Tremulousness has increased likely due to Xopenex Patient has remained afebrile since my last encounter; maximum temperature 99.2. Pulse 72-76; respirations 16-20.; BP 124/75 Lungs: Persistent rales right base; essentially unchanged examination PA and lateral chest x-ray notable for a large hiatal hernia, no focal consolidation, no evidence pneumonia Abdomen: Soft, nontender with active bowel sounds. CT: Obtained due to new leukocytosis and fever reviewed with [facility] Findings include 6.9 x 6.3 cm air/fluid collection in the gallbladder fossa. Believed to be either a resolving hematoma or biloma. A single bubble of gas right subhepatic space presumably related to recent laparoscopic procedures; colonic diverticulosis without diverticulitis Impression/Plan: POD #8 - s/p laparoscopic cholecystectomy, IOC with open celiotomy to control bleeding from the liver bed Fever and leukocytosis - Air-fluid collection in the gallbladder fossa. Possible source for the patient's fever and leukocytosis. We will consult interventional radiology for percutaneous drainage in the a.m. Discontinue Xopenex Objective Vital Signs - Last 8 Hours Temp Pulse Resp BP Pulse Ox 07/30/17 15:27 98.0 F 72 18 124/75 93 07/30/17 15:23 16 97 07/30/17 11:02 99.2 F 76 20 124/74 95 07/30/17 10:00 90 Intake and Output 07/30/17 07/30/17 07/30/17 07:59 15:59 23:59 Intake Total 400 / 400 0 / 0 Output Total 450 / 450 550 / 550 Balance -50 / -50 -550 / -550 Intake: Oral 400 / 400 0 / 0 Output: Urine 450 / 450 550 / 550 Other: Meal Lunch Percent of Meal Consumed 0% Weight 89.2 kg Patient Weight 07/30/17 23:59 Weight 89.2 kg - Labs 07/30/17 04:59 07/30/17 04:59 Diabetes panel 07/30/17 Range/Units 04:59 Sodium 137 (136-145) mEq/L Potassium 3.6 (3.5-5.1) mEq/L Chloride 98 (98-107) mEq/L Carbon Dioxide 29 (23-29) mEq/L BUN 11 (8-23) mg/dL Creatinine 0.71 (0.60-1.20) mg/dL Glucose 112 H (70-105) mg/dL Calcium 8.4 L (8.6-10.3) mg/dL AST 18 (13-39) Units/L ALT 16 (7-52) Units/L Alkaline Phosphatase 86 (34-104) Units/L Albumin 2.5 L (3.5-5.7) g/dL Calcium panel 07/30/17 Range/Units 04:59 Calcium 8.4 L (8.6-10.3) mg/dL Albumin 2.5 L (3.5-5.7) g/dL Pituitary panel 07/30/17 Range/Units 04:59 Sodium 137 (136-145) mEq/L Potassium 3.6 (3.5-5.1) mEq/L Chloride 98 (98-107) mEq/L Carbon Dioxide 29 (23-29) mEq/L BUN 11 (8-23) mg/dL Creatinine 0.71 (0.60-1.20) mg/dL Glucose 112 H (70-105) mg/dL Calcium 8.4 L (8.6-10.3) mg/dL Adrenal panel 07/30/17 Range/Units 04:59 Sodium 137 (136-145) mEq/L Potassium 3.6 (3.5-5.1) mEq/L Chloride 98 (98-107) mEq/L Carbon Dioxide 29 (23-29) mEq/L BUN 11 (8-23) mg/dL Creatinine 0.71 (0.60-1.20) mg/dL Glucose 112 H (70-105) mg/dL Calcium 8.4 L (8.6-10.3) mg/dL Total Bilirubin 0.4 (0.3-1.0) mg/dL AST 18 (13-39) Units/L ALT 16 (7-52) Units/L Alkaline Phosphatase 86 (34-104) Units/L Albumin 2.5 L (3.5-5.7) g/dL - VTE Documentation of Mechanical Device: Intermittent pneumatic compression device Consult Discharge Plan - Plan Referrals: Erasmo Bear MD [Non-Partnered Physician] -
[2017-07-30] MEDS ORDERED: *HR* OxyCODONE/APAP 5/325 TABLET PO PRN (16:34)
[2017-07-30] MEDS: Acetaminophen 325 MG TABLET PO PRN (18:11)
[2017-07-30] MEDS: traZODone 50 MG TABLET PO SCH (21:16)
[2017-07-31 04:43] LABS: Basophils % 0.2 %; Eosinophils # 0.2 K/mcL (0.0-0.6); Eosinophils % 1.2 %; Hematocrit 28.9 % (35.3-44.9); Hemoglobin 9.2 g/dL (11.5-15.4); Immature Granulocytes % 0.5 % (0-4); Lymphocytes # 2.2 K/mcL (0.6-4.6); Lymphocytes % 13.4 %; Mean Corpuscular HGB Conc 31.8 g/dL (31.6-35.5); Mean Corpuscular Hemoglobin 28.3 pg (28.0-33.3); Mean Corpuscular Volume 88.9 fL (83.0-100.0); Mean Platelet Volume 9.4 fL (9.4-12.4); Monocytes # 1.6 K/mcL (0.0-1.3); Monocytes % 9.4 %; Neutrophils # 12.5 K/mcL (1.6-8.9); Platelet Count 468 K/mcL (140-400); Red Blood Count 3.25 M/mcL (3.82-4.97); Red Cell Distribution Width 14.5 % (11.5-14.5); Segmented Neutrophils % 75.3 %
[2017-07-31 06:32] LABS: INR 1.2; Prothrombin Time 12.7 Seconds (9.4-12.1)
[2017-07-31] MEDS: Aspirin 81 MG TAB.CHEW PO SCH (11:21)
[2017-07-31] MEDS: Furosemide 20 MG TABLET PO SCH (11:21)
[2017-07-31] MEDS: Metoprolol XL (24 HR) Succ 25 MG TAB.ER.24H PO SCH (11:21)
[2017-07-31] MEDS: cefTRIAXone 1,000 MG in Water for inj. (sterile) 20 ML 10 ML IVP SCH (11:23)
--- NOTE | 2017-07-31 12:33 | General Surgery Progress Note ---
Date of Encounter: 07/31/17 Time of Encounter: 12:28 Subjective Patient reports: no new complaints Narrative: General Surgery - POD #9 Patient voicing no new complaints; resting comfortably in her hospital bed. Maximum temperature 100.5, pulse 87, respirations 18, BP 110/68 Lungs: Persistent bibasilar rales; SPO2 93% on 1.5 L/m nasal cannula. Abdomen: Soft, nontender; subcostal incision intact clean and dry. Active bowel sounds. No peritoneal signs or rebound. Urine output 1550 mL for calendar day 07/30/17; no urine output recorded so far today Laboratories: Persistent leukocytosis 16.9; with 12.5 K/mcL neutrophils Hemoglobin stable at 9.2, hematocrit 28.9; platelet count 468,000. PT/INR 12.7/1.2 Impression: POD #9, s/p upper scopic cholecystectomy, intraoperative cholangiogram with open celiotomy control bleeding from the liver bed. Awaiting interventional radiology for percutaneous drainage air-fluid collection in the gallbladder fossa. Continue Rocephin Objective Vital Signs - Last 8 Hours Temp Pulse Resp BP Pulse Ox 07/31/17 12:11 99.1 F 89 16 151/80 95 07/31/17 07:18 98.2 F 71 16 123/71 96 Intake and Output 07/30/17 07/31/17 07/31/17 23:59 07:59 15:59 Intake Total 320 / 320 0 / 0 Output Total 300 / 300 0 / 0 Balance 0 / 0 Intake: IV Fluids Rocephin 1,000 MG In Water for inj. (sterile) 10 ML @ 600 mls/ hr IVP DAILY [facility] Rx#:[id number] Oral 320 / 320 0 / 0 0 / 0 Output: Urine 300 / 300 0 / 0 Other: Meal Dinner Percent of Meal Consumed 100% # Voids 1 1 Weight 77 kg Blood Glucose* 99 84 Patient Weight 07/31/17 23:59 Weight 77 kg - Labs 07/31/17 03:51 07/30/17 04:59 - VTE Documentation of Mechanical Device: Intermittent pneumatic compression device Consult Discharge Plan - Plan Referrals: Erasmo Bear MD [Non-Partnered Physician] -
[2017-07-31] MEDS: Acetaminophen 325 MG TABLET PO PRN (12:34)
[2017-07-31] MEDS ORDERED: *HR* FentaNYL (PF) 100 MCG/2 ML VIAL IVP ONE (15:25)
[2017-07-31] MEDS ORDERED: *HR* Midazolam HCl 2 MG/2 ML VIAL IVP ONE (15:25)
--- NOTE | 2017-07-31 16:02 | Pre-Sedation Evaluation ---
Pre-sedation evaluation - Pre-sedation checklist Date of procedure: 07/22/17 Procedure: CT guided abscess drain Recent Vitals: Last Vital Signs Temp 99.1 F 07/31/17 12:11 Pulse 89 07/31/17 12:11 Resp 16 07/31/17 12:11 BP 151/80 07/31/17 12:11 Pulse Ox 95 07/31/17 12:11 H&P (including ROS) documented in medical record: Yes Dietary Status: NPO 6 hours prior to procedure Airway Assessment: Patient can open mouth completely, TMJ function normal, Micrognathia (under-bite, receding chin) absent, Neck with adequate range of motion ASA Classification *see protocol: CLASS II-Mild systemic disease Plan of Care: Pt appropriate candidate for procedure/moderate/conscious sedation , Risks/benefits of procedure/sedation discussed w/ patient/family, If not NPO; Risk of intake outweiged by necessity to perform procedure
--- NOTE | 2017-07-31 16:36 | IR Procedure Note ---
Date of procedure: 07/31/17 Consent Obtained: Verbal consent, Written consent Timeout: Correct patient and procedure verified, Correct site verified, Time out performed, Skin prep completed Local anesthetic: Lidocaine 1% Indications: GB fossa abscess Procedure Performed: perc drain placement Was there an assistant district attorney present: No Site/Technique: RUQ with transhepatic approach Results/Findings: 30 cc purulent material aspirated Estimated blood loss (cc): 1 Complications: None; Tolerated procedure well Post Procedure Treatment Plan: bedrest x 1h; please flush catheter with 10 cc NS q shift Specimen: 30 cc purulent fluid
[2017-07-31] MEDS ORDERED: *HR* OxyCODONE Immed Rel 5 MG TABLET PO PRN (17:00)
[2017-07-31 20:09] LABS: ABG Base Excess 4 mEq/L (-2 to 3); ABG HCO3 30 mEq/L (21-27); ABG Oxygen Saturation 95 % (95-98); ABG PCO2 48 mmHg (35-45); ABG PO2 77 mmHg (85-104); ABG TCO2 31 mEq/L (20-26)
--- NOTE | 2017-07-31 20:45 | Event Note ---
Date of Encounter: 07/31/17 Time of Encounter: 20:30 77 yo, status post transhepatic placement of a percutaneous drain to evacuate an air fluid collection that had accumulated in the gallbladder fossa. The fluid was described to be purulent, aerobic and anaerobic cultures have been ordered and are believed to be pending. This evening, approximately 2000 hrs. the patient was noted to be tachypneic, short of breath and complaining of being unable to lie flat. Nursing staff summoned Mj Thomason CNP, who was at the nursing station to evaluate the patient. Findings included: Fever to 102.3, pulse 112, respiratory rate 28, blood pressure 172/88. O2 saturation currently 97% on oxygen mask 3 L/m however it had dropped as low as 76%. A chest x-ray had been obtained, I personally reviewed this. There was no evidence of a pneumothorax or other significant pulmonary changes. ABGs showed pH is 7.40, PCO2 of 48, PO2 of 77, bicarbonate 31 SPO2 was 95%. Physical examination lungs demonstrated bibasilar rales with an extremely poor inspiratory effort Abdomen was soft, nontender. Impression: Pleuritic chest pain related to the recently placed transhepatic percutaneous drain. Fever likely due to the manipulation/evacuation of the abscess. The patient is on Rocephin. 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
[2017-07-31] MEDS: *HR* HYDROmorphone 20 MG/20 ML PCA IVC PRN (21:10)
[2017-07-31] MEDS: traZODone 50 MG TABLET PO SCH (21:50)
[2017-08-01 05:57] LABS: Basophils % 0.2 %; Red Cell Distribution Width 14.5 % (11.5-14.5)
[2017-08-01 05:59] LABS: Basophils # 0.1 K/mcL (0.0-0.2); Hematocrit 29.1 % (35.3-44.9); Hemoglobin 9.1 g/dL (11.5-15.4); Immature Granulocytes % 2.4 % (0-4); Lymphocytes # 1.5 K/mcL (0.6-4.6); Lymphocytes % 5.7 %; Mean Corpuscular HGB Conc 31.3 g/dL (31.6-35.5); Mean Corpuscular Hemoglobin 28.2 pg (28.0-33.3); Mean Corpuscular Volume 90.1 fL (83.0-100.0); Mean Platelet Volume 9.5 fL (9.4-12.4); Monocytes # 1.2 K/mcL (0.0-1.3); Monocytes % 4.6 %; Neutrophils # 22.5 K/mcL (1.6-8.9); Platelet Count 567 K/mcL (140-400); Red Blood Count 3.23 M/mcL (3.82-4.97); Segmented Neutrophils % 87.1 %
[2017-08-01 06:21] LABS: Alanine Aminotransferase 15 Units/L (7-52); Albumin 2.8 g/dL (3.5-5.7); Albumin/Globulin Ratio 0.9 (1.1-2.2); Alkaline Phosphatase 112 Units/L (34-104); Aspartate Amino Transferase 17 Units/L (13-39); BUN/Creatinine Ratio 18 (6-26); Bilirubin,Total 0.3 mg/dL (0.3-1.0); Blood Urea Nitrogen 13 mg/dL (8-23); Calcium 8.7 mg/dL (8.6-10.3); Carbon Dioxide 24 mEq/L (23-29); Chloride 98 mEq/L (98-107); Globulin 3.2 g/dL (2.4-3.5); Glucose 92 mg/dL (70-105); Osmolality,Calculated 280 (280-300); Potassium 4.2 mEq/L (3.5-5.1); Sodium 135 mEq/L (136-145); eGFR For African Americans > 60 (> 60); eGFR For Non-African Americans > 60 (> 60)
[2017-08-01 06:39] LABS: Platelet Estimate Increased (Normal); Toxic Granulation Present (Not Present)
[2017-08-01] MEDS: Aspirin 81 MG TAB.CHEW PO SCH (08:27)
[2017-08-01] MEDS: Metoprolol XL (24 HR) Succ 25 MG TAB.ER.24H PO SCH (08:27)
[2017-08-01] MEDS: Furosemide 20 MG TABLET PO SCH (08:27)
[2017-08-01] MEDS: cefTRIAXone 1,000 MG in Water for inj. (sterile) 20 ML 10 ML IVP SCH (08:27)
--- NOTE | 2017-08-01 09:56 | General Surgery Progress Note ---
Date of Encounter: 08/01/17 Time of Encounter: 09:20 Subjective Patient reports: feels better, still having pain, pain is less Narrative: General Surgery - POD #10 Patient feeling somewhat better. Pain controlled with TECHNICAL SUPPORT COORDINATOR. Temperature has returned to normal. Tachycardia resolved Currently: Temperature 97.7, pulse 86, respirations 16, blood pressure 121/ 75. Lungs: Diminished breath sounds right base with rales; poor inspiratory effort Abdomen: Soft, nontender. Incisions clean and dry. Percutaneously placed drain: 50 mL of a cloudy serous fluid. Gram stain: Many WBCs; no detected gram positive cocci, few gram-negative rods, few gram-positive rods Cultures pending Laboratories: Leukocytosis has increased to 25.8, likely due to the manipulation of the sub-hepatic fluid collection and percutaneous placement of the drain Hemoglobin 9.1, hematocrit 29.1. Neutrophils have increased to 22.5 Impression: POD #10 - s/p lap isabelle with open celiotomy to control persistent hemorrhage from liver bed. Postprocedure day #1, placement of transhepatic percutaneous drain to evacuate a gas fluid collection in the gallbladder fossa. Gram stain results noted; the gas-fluid collection in the GB fossa appears likely resorbing hematoma and bile. Postprocedure pleuritic pain controlled with TECHNICAL SUPPORT COORDINATOR Hypertension, tachypnea and hypoxia improved with pain control Objective Vital Signs - Last 8 Hours Temp Pulse Resp BP Pulse Ox 08/01/17 06:58 97.7 F 86 16 121/75 96 08/01/17 03:46 97.9 F 90 18 116/68 93 Intake and Output 07/31/17 08/01/17 08/01/17 23:59 07:59 15:59 Intake Total 200 / 200 100 / 100 Output Total 150 / 150 200 / 200 Balance 50 / 50 -100 / -100 Intake: Oral 200 / 200 100 / 100 Output: Urine 100 / 100 200 / 200 Wound Drainage 50 / 50 0 / 0 Right Upper Lateral Chest 50 / 50 0 / 0 Other: # Urine Diapers 1 Weight 76.2 kg Patient Weight 08/01/17 23:59 Weight 76.2 kg - Labs 08/01/17 04:54 08/01/17 04:54 Diabetes panel 08/01/17 Range/Units 04:54 Sodium 135 L (136-145) mEq/L Potassium 4.2 (3.5-5.1) mEq/L Chloride 98 (98-107) mEq/L Carbon Dioxide 24 (23-29) mEq/L BUN 13 (8-23) mg/dL Creatinine 0.74 (0.60-1.20) mg/dL Glucose 92 (70-105) mg/dL Calcium 8.7 (8.6-10.3) mg/dL AST 17 (13-39) Units/L ALT 15 (7-52) Units/L Alkaline Phosphatase 112 H (34-104) Units/L Albumin 2.8 L (3.5-5.7) g/dL Calcium panel 08/01/17 Range/Units 04:54 Calcium 8.7 (8.6-10.3) mg/dL Albumin 2.8 L (3.5-5.7) g/dL Pituitary panel 08/01/17 Range/Units 04:54 Sodium 135 L (136-145) mEq/L Potassium 4.2 (3.5-5.1) mEq/L Chloride 98 (98-107) mEq/L Carbon Dioxide 24 (23-29) mEq/L BUN 13 (8-23) mg/dL Creatinine 0.74 (0.60-1.20) mg/dL Glucose 92 (70-105) mg/dL Calcium 8.7 (8.6-10.3) mg/dL Adrenal panel 08/01/17 Range/Units 04:54 Sodium 135 L (136-145) mEq/L Potassium 4.2 (3.5-5.1) mEq/L Chloride 98 (98-107) mEq/L Carbon Dioxide 24 (23-29) mEq/L BUN 13 (8-23) mg/dL Creatinine 0.74 (0.60-1.20) mg/dL Glucose 92 (70-105) mg/dL Calcium 8.7 (8.6-10.3) mg/dL Total Bilirubin 0.3 (0.3-1.0) mg/dL AST 17 (13-39) Units/L ALT 15 (7-52) Units/L Alkaline Phosphatase 112 H (34-104) Units/L Albumin 2.8 L (3.5-5.7) g/dL - VTE Documentation of Mechanical Device: Intermittent pneumatic compression device Consult Discharge Plan - Plan Referrals: Erasmo Bear MD [Non-Partnered Physician] -
[2017-08-01] MEDS: Acetaminophen 325 MG TABLET PO PRN (15:25)
[2017-08-01] MEDS: 0.9 % Sodium Chloride 1,000 ML ONE ×2 (19:52→20:01)
[2017-08-01] MEDS: traZODone 50 MG TABLET PO SCH (21:49)
[2017-08-01] MEDS: ALPRAZolam 0.5 MG TABLET PO PRN (21:54)
[2017-08-02 04:22] LABS: Basophils % 0.1 %; Eosinophils # 0.2 K/mcL (0.0-0.6); Eosinophils % 1.3 %; Hematocrit 29.7 % (35.3-44.9); Hemoglobin 9.6 g/dL (11.5-15.4); Immature Granulocytes % 0.6 % (0-4); Lymphocytes # 1.5 K/mcL (0.6-4.6); Lymphocytes % 10.6 %; Mean Corpuscular HGB Conc 32.3 g/dL (31.6-35.5); Mean Corpuscular Hemoglobin 29.2 pg (28.0-33.3); Mean Corpuscular Volume 90.3 fL (83.0-100.0); Mean Platelet Volume 9.2 fL (9.4-12.4); Monocytes # 1.1 K/mcL (0.0-1.3); Monocytes % 7.8 %; Neutrophils # 11.4 K/mcL (1.6-8.9); Platelet Count 608 K/mcL (140-400); Red Blood Count 3.29 M/mcL (3.82-4.97); Red Cell Distribution Width 14.3 % (11.5-14.5); Segmented Neutrophils % 79.6 %
[2017-08-02] MEDS: Furosemide 20 MG TABLET PO SCH (09:01)
[2017-08-02] MEDS: Aspirin 81 MG TAB.CHEW PO SCH (09:01)
[2017-08-02] MEDS: Metoprolol XL (24 HR) Succ 25 MG TAB.ER.24H PO SCH (09:01)
[2017-08-02] MEDS: cefTRIAXone 1,000 MG in Water for inj. (sterile) 20 ML 10 ML IVP SCH (09:02)
--- NOTE | 2017-08-02 10:20 | General Surgery Progress Note ---
Date of Encounter: 08/02/17 Time of Encounter: 10:18 Subjective Narrative: General Surgery - POD #11 Maximum temperature 99.0; pulse 82-84, respiratory rate 15, blood pressure ranging 116/75-146/79. Still requiring 3 L/m nasal cannula to maintain saturations 94%. Patient continues to complain of right upper quadrant abdominal pain in the vicinity of the percutaneously placed transhepatic drain. Lungs: Poor inspiratory effort, scattered rales and wheezes audible bilaterally Abdomen: Soft, no obvious tenderness to palpation. No rebound. Active bowel sounds. Port sites and subcostal incision clean and dry Drain - 18 mL for calendar day 08/01/17; 19 mL so far today Labs: Leukocytosis significantly improved, 14.3 with neutrophils reduced to 11.4. Hemoglobin 9.6 hematocrit 29.7. Microbiology - no new results cultures still pending Impression: POD #11 - status post laparoscopic cholecystectomy with open celiotomy to control hemorrhage from gallbladder fossa POD #2 - percutaneous placement transhepatic drain - patient complaining of pain since placement but drainage definitely diminished. Awaiting culture results. 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 Objective Vital Signs - Last 8 Hours Temp Pulse Resp BP Pulse Ox 08/02/17 09:06 94 08/02/17 06:57 98.1 F 84 15 146/79 94 08/02/17 04:28 99.0 F 82 16 116/75 93 Intake and Output 08/01/17 08/02/17 08/02/17 23:59 07:59 15:59 Intake Total 0 / 0 120 / 120 Output Total 718 / 718 112 / 112 Balance -718 / -718 -7 Intake: Oral 0 / 0 120 / 120 Output: Urine 700 / 700 100 / 100 Wound Drainage Right Upper Lateral Chest Other: Meal Breakfast Percent of Meal Consumed 5% Weight 76 kg Patient Weight 08/02/17 23:59 Weight 76 kg - Labs 08/02/17 03:46 08/01/17 04:54 - VTE Documentation of Mechanical Device: Intermittent pneumatic compression device Consult Discharge Plan - Plan Referrals: Erasmo Bear MD [Non-Partnered Physician] -
[2017-08-02] MEDS ORDERED: 0.9 % Sodium Chloride 1,000 ML ONE (18:00)
[2017-08-02] MEDS: ALPRAZolam 0.5 MG TABLET PO PRN (21:04)
[2017-08-02] MEDS: traZODone 50 MG TABLET PO SCH (21:04)
[2017-08-03 04:53] LABS: Basophils % 0.2 %; Eosinophils # 0.2 K/mcL (0.0-0.6); Hematocrit 28.4 % (35.3-44.9); Immature Granulocytes % 0.5 % (0-4); Lymphocytes # 1.9 K/mcL (0.6-4.6); Lymphocytes % 17.5 %; Mean Corpuscular HGB Conc 31.7 g/dL (31.6-35.5); Mean Corpuscular Hemoglobin 28.8 pg (28.0-33.3); Mean Platelet Volume 9.1 fL (9.4-12.4); Monocytes % 9.5 %; Neutrophils # 7.7 K/mcL (1.6-8.9); Platelet Count 579 K/mcL (140-400); Red Blood Count 3.12 M/mcL (3.82-4.97); Red Cell Distribution Width 14.3 % (11.5-14.5); Segmented Neutrophils % 70.3 %
[2017-08-03 04:58] LABS: Monocytes # 1.1 K/mcL (0.0-1.3)
[2017-08-03 05:17] LABS: Platelet Estimate Increased (Normal)
[2017-08-03] MEDS: *HR* HYDROmorphone 20 MG/20 ML PCA IVC PRN (07:14)
[2017-08-03] MEDS: cefTRIAXone 1,000 MG in Water for inj. (sterile) 20 ML 10 ML IVP SCH (09:34)
[2017-08-03] MEDS: Furosemide 20 MG TABLET PO SCH (09:35)
[2017-08-03] MEDS: Metoprolol XL (24 HR) Succ 25 MG TAB.ER.24H PO SCH (09:35)
[2017-08-03] MEDS: Aspirin 81 MG TAB.CHEW PO SCH (09:35)
--- NOTE | 2017-08-03 11:07 | General Surgery Progress Note ---
Date of Encounter: 08/03/17 Time of Encounter: 10:25 Subjective Patient reports: still having pain Narrative: General Surgery - POD #12 Patient continues to complain of pain. Afebrile, 97.9; pulse 73, respirations 15, blood pressure 130/76. Patient continues to require oxygen at 3 L/m nasal cannula to maintain saturations 93% Lungs: Clear to auscultation with better aeration. Improved inspiratory effort. Patient continues to require encouragement. Abdomen: Soft, nontender to palpation. Subcostal incision clean and dry. Percutaneously placed drain - 34 mL 4 calendar day 08/02/17; 10 mL so far today - clear bile-stained fluid. Laboratories: White count 11.0, hemoglobin 9.0/hematocrit 28.4, platelet count 579,000; neutrophilia resolved Cultures: From fluid aspirated at the time of percutaneous, transhepatic placement of the drain - pending Impression: Patient continues to complain of pain; no pain or tenderness elicited during my examination Plan: discontinue [employer] oral narcotic analgesics - Percocet 10/325 Q6H PRN - patient aware of these changes, she understands she must ask for these meds Continue ceftriaxone discontinue Trazadone at the patient's request. She has been refusing this medication every evening. Objective Vital Signs - Last 8 Hours Temp Pulse Resp BP Pulse Ox 08/03/17 09:10 93 08/03/17 07:10 97.9 F 73 15 138/76 93 08/03/17 05:26 98.2 F 86 16 136/72 98 Intake and Output 08/02/17 08/03/17 08/03/17 23:59 07:59 15:59 Intake Total 1300 / 1300 520 / 520 120 / 120 Output Total 215 / 215 400 / 400 10 Balance 1085 / 1085 120 / 120 110 / 110 Intake: IV Fluids 1000 / 1000 Oral 300 / 300 520 / 520 120 / 120 Output: Urine 200 / 200 400 / 400 Wound Drainage Right Upper Lateral Chest Other: Meal Breakfast Percent of Meal Consumed 50% # Bowel Movements 0 0 Weight 77.8 kg - Labs 08/03/17 Unknown 08/01/17 04:54 - VTE Documentation of Mechanical Device: Intermittent pneumatic compression device Consult Discharge Plan - Plan Referrals: Erasmo Bear MD [Non-Partnered Physician] -
[2017-08-03] MEDS: *HR* OxyCODONE/APAP 10/325 TABLET PO PRN ×2 (11:39→18:01)
[2017-08-03] MEDS: Acetaminophen 325 MG TABLET PO PRN ×2 (15:20→20:33)
[2017-08-03] MEDS: ALPRAZolam 0.5 MG TABLET PO PRN (20:33)
[2017-08-04] MEDS: *HR* OxyCODONE/APAP 10/325 TABLET PO PRN ×4 (01:18→23:06)
[2017-08-04 04:16] LABS: Basophils % 0.4 %; Eosinophils # 0.2 K/mcL (0.0-0.6); Eosinophils % 2.5 %; Hematocrit 29.1 % (35.3-44.9); Hemoglobin 9.2 g/dL (11.5-15.4); Immature Granulocytes % 0.5 % (0-4); Lymphocytes # 2.2 K/mcL (0.6-4.6); Lymphocytes % 28.1 %; Mean Corpuscular HGB Conc 31.6 g/dL (31.6-35.5); Mean Corpuscular Hemoglobin 28.7 pg (28.0-33.3); Mean Corpuscular Volume 90.7 fL (83.0-100.0); Mean Platelet Volume 8.4 fL (9.4-12.4); Monocytes # 0.8 K/mcL (0.0-1.3); Monocytes % 9.7 %; Neutrophils # 4.6 K/mcL (1.6-8.9); Platelet Count 637 K/mcL (140-400); Red Blood Count 3.21 M/mcL (3.82-4.97); Red Cell Distribution Width 14.3 % (11.5-14.5); Segmented Neutrophils % 58.8 %
[2017-08-04 04:39] LABS: BUN/Creatinine Ratio 10 (6-26); Blood Urea Nitrogen 7 mg/dL (8-23); Calcium 8.3 mg/dL (8.6-10.3); Carbon Dioxide 35 mEq/L (23-29); Chloride 101 mEq/L (98-107); Glucose 102 mg/dL (70-105); Osmolality,Calculated 288 (280-300); Potassium 3.8 mEq/L (3.5-5.1); Sodium 140 mEq/L (136-145); eGFR For African Americans > 60 (> 60); eGFR For Non-African Americans > 60 (> 60)
[2017-08-04] MEDS: Furosemide 20 MG TABLET PO SCH (08:07)
[2017-08-04] MEDS: Metoprolol XL (24 HR) Succ 25 MG TAB.ER.24H PO SCH (08:07)
[2017-08-04] MEDS: Aspirin 81 MG TAB.CHEW PO SCH (08:07)
[2017-08-04] MEDS: cefTRIAXone 1,000 MG in Water for inj. (sterile) 20 ML 10 ML IVP SCH (08:08)
[2017-08-04] MEDS: Acetaminophen 325 MG TABLET PO PRN ×2 (11:18→20:21)
--- NOTE | 2017-08-04 12:43 | General Surgery Progress Note ---
Date of Encounter: 08/04/17 Time of Encounter: 12:37 Subjective Patient reports: feels better, pain is less Narrative: General Surgery - POD #13 Patient feeling better, voicing no new complaints. Admits pain is diminished Afebrile, currently 98.2, pulse 63-79, respirations 14, blood pressure 128/ 77. Lungs: Better aeration by basilar lungs; still requires oxygen at 2 L/m per nasal cannula to maintain saturation 91 and 93% Abdomen: Soft, nontender; active bowel sounds. Subcostal incision remains clean and dry Percutaneously placed transhepatic drain - 10 mL for calendar day 08/03/17 ; 30 mL today. Cultures obtained via this percutaneously placed drain - no anaerobic growth , however, and as yet identified light growth bacteria On the anaerobic plate Laboratories: White count 7.9, hemoglobin 9.2, hematocrit 29.1. Platelet count 637,000. Differential remains within normal limits Impression: POD #13 - s/p laparoscopic cholecystectomy with open celiotomy to control hemorrhage from the gallbladder fossa Percutaneous drainage of hematoma from gallbladder fossa. Patient continues to make slow recovery; respiratory status improving - slowly weaning off oxygen supplementation. Plan: Continue Rocephin pending outcome of cultures. Remove percutaneous transhepatic drain after cultures are known; and drainage remains low This treatment plan was discussed with patient and her attendant family. Objective Vital Signs - Last 8 Hours Temp Pulse Resp BP Pulse Ox 08/04/17 10:31 98.2 F 74 14 128/77 91 08/04/17 07:17 97.8 F 79 14 161/84 93 Intake and Output 08/03/17 08/04/17 08/04/17 23:59 07:59 15:59 Intake Total 240 / 240 0 / 0 240 / 240 Output Total 550 / 550 420 / 420 110 / 110 Balance -310 / -310 -420 / -420 130 / 130 Intake: Oral 240 / 240 0 / 0 240 / 240 Output: Urine 550 / 550 400 / 400 100 / 100 Wound Drainage 10 10 Right Upper Lateral Chest 10 Other: Meal Breakfast Percent of Meal Consumed 5% Stool Size Small Stool Consistency formed Stool Color Brown # Bowel Movements 1 Weight 77.4 kg Patient Weight 08/04/17 23:59 Weight 77.4 kg - Labs 08/04/17 04:10 06/25/18 04:10 Diabetes panel 08/04/17 Range/Units 04:10 Sodium 140 (136-145) mEq/L Potassium 3.8 (3.5-5.1) mEq/L Chloride 101 (98-107) mEq/L Carbon Dioxide 35 H (23-29) mEq/L BUN 7 L (8-23) mg/dL Creatinine 0.68 (0.60-1.20) mg/dL Glucose 102 (70-105) mg/dL Calcium 8.3 L (8.6-10.3) mg/dL Calcium panel 08/04/17 Range/Units 04:10 Calcium 8.3 L (8.6-10.3) mg/dL Pituitary panel 08/04/17 Range/Units 04:10 Sodium 140 (136-145) mEq/L Potassium 3.8 (3.5-5.1) mEq/L Chloride 101 (98-107) mEq/L Carbon Dioxide 35 H (23-29) mEq/L BUN 7 L (8-23) mg/dL Creatinine 0.68 (0.60-1.20) mg/dL Glucose 102 (70-105) mg/dL Calcium 8.3 L (8.6-10.3) mg/dL Adrenal panel 08/04/17 Range/Units 04:10 Sodium 140 (136-145) mEq/L Potassium 3.8 (3.5-5.1) mEq/L Chloride 101 (98-107) mEq/L Carbon Dioxide 35 H (23-29) mEq/L BUN 7 L (8-23) mg/dL Creatinine 0.68 (0.60-1.20) mg/dL Glucose 102 (70-105) mg/dL Calcium 8.3 L (8.6-10.3) mg/dL - VTE Documentation of Mechanical Device: Intermittent pneumatic compression device Consult Discharge Plan - Plan Referrals: Erasmo Bear MD [Non-Partnered Physician] -
[2017-08-04] MEDS: ALPRAZolam 0.5 MG TABLET PO PRN (20:20)
[2017-08-05] MEDS: *HR* OxyCODONE/APAP 10/325 TABLET PO PRN ×3 (05:25→20:22)
[2017-08-05] MEDS: Metoprolol XL (24 HR) Succ 25 MG TAB.ER.24H PO SCH (10:30)
[2017-08-05] MEDS: Furosemide 20 MG TABLET PO SCH (10:30)
[2017-08-05] MEDS: Aspirin 81 MG TAB.CHEW PO SCH (10:30)
[2017-08-05] MEDS: cefTRIAXone 1,000 MG in Water for inj. (sterile) 20 ML 10 ML IVP SCH (10:30)
--- NOTE | 2017-08-05 12:05 | General Surgery Progress Note ---
Date of Encounter: 08/05/17 Time of Encounter: 11:58 Subjective Patient reports: no new complaints, still having pain Narrative: General Surgery - POD #14 Patient voicing no new complaints; still complaining of pain. Patient remains afebrile, hemodynamically stable with all 74, respirations 18, blood pressure 139/85. Patient currently weaned off oxygen maintaining a saturation of 98% on room air. Lungs: Bibasilar rales but continued improvement with better aeration. More effective cough. Cardiac: Regular rate, no appreciable murmur Abdomen: Soft with no obvious tenderness to palpation. Infraumbilical and subcostal incisions clean and dry- skin slime removed Percutaneous, transhepatic drain - approximately 65 mL in the last 24 hours, yellow serous fluid Cultures: No growth aerobic plate; scant bacterial growth on the anaerobic plate, additional testing pending Impression: Postoperative day #14 Status post laparoscopic cholecystectomy with intraoperative cholangiogram; open celiotomy to control bleeding from liver bed Postoperative development of an air fluid collection in the gallbladder fossa - status post percutaneous transhepatic drainage, 07/31/17 Acceptable postoperative status but requires continued antibiotics pending final microbiology results Postoperative anemia: Stable Prolonged postoperative hypoxia requiring supplemental O2 via nasal cannula - this appears to be resolving as ventilatory status improved with diminished pleuritic pain. Hypertension stable Tachycardia resolved. Objective Vital Signs - Last 8 Hours Temp Pulse Resp BP Pulse Ox 08/05/17 09:50 98.3 F 74 18 139/85 98 08/05/17 06:16 98.1 F 71 16 125/81 93 Intake and Output 08/04/17 08/05/17 08/05/17 23:59 07:59 15:59 Intake Total 240 / 240 100 / 100 0 / 0 Output Total 315 / 315 100 / 100 250 / 250 Balance -75 / -75 0 / 0 -250 / -250 Intake: Oral 240 / 240 100 / 100 0 / 0 Output: Urine 300 / 300 100 / 100 250 / 250 Wound Drainage 15 / 15 0 / 0 0 / 0 Right Upper Lateral Chest 15 / 15 0 / 0 0 / 0 Other: Meal Breakfast Percent of Meal Consumed 50% Weight 77.9 kg Patient Weight 08/05/17 23:59 Weight 77.9 kg - Labs 08/04/17 04:10 08/04/17 04:10 - VTE Documentation of Mechanical Device: Intermittent pneumatic compression device Consult Discharge Plan - Plan Referrals: Erasmo Bear MD [Non-Partnered Physician] -
[2017-08-05] MEDS: ALPRAZolam 0.5 MG TABLET PO PRN (20:22)
[2017-08-06] MEDS: Furosemide 20 MG TABLET PO SCH (08:42)
[2017-08-06] MEDS: Metoprolol XL (24 HR) Succ 25 MG TAB.ER.24H PO SCH (08:42)
[2017-08-06] MEDS: cefTRIAXone 1,000 MG in Water for inj. (sterile) 20 ML 10 ML IVP SCH (08:42)
[2017-08-06] MEDS: Aspirin 81 MG TAB.CHEW PO SCH (08:42)
[2017-08-06] MEDS: Acetaminophen 325 MG TABLET PO PRN ×2 (14:23→20:23)
--- NOTE | 2017-08-06 16:13 | General Surgery Progress Note ---
Date of Encounter: 08/06/17 Time of Encounter: 16:07 Subjective Patient reports: no new complaints Narrative: General Surgery - POD #15 Patient voicing no new complaints; has been considerably more active out of bed. The patient remains afebrile, hemodynamically stable; temperature 98.9, pulse 78, respirations 18, blood pressure 125/79. Lungs: Bibasilar rales as before; SPO2 on room air 91-94%. Abdomen: Soft, nontender. Incisions clean and dry; skin edges well approximated post removal skin slime Percutaneous, transhepatic drain - 20 mL for Tesfaye day 08/05/17; 15 mL so far today - Drain removed Anaerobic cultures - additional testing in progress, results pending Aerobic cultures - no growth Impression: Acceptable postoperative status; Percutaneous transhepatic drain placed 07/31/17 - removed. The radiologist described aspiration of purulent fluid consistent with an abscess within the gallbladder fossa, however, cultures do not corroborate this impression. Chronic hypoxia resolved with improved respiratory function/ventilation. O2 saturations within an acceptable range without supplemental O2 Anemia I's and O's show a negative balance of approximately 1600 mL in the last 24 hours. Repeat CBC in a.m. Continue Rocephin pending anaerobic culture results Objective Vital Signs - Last 8 Hours Temp Pulse Resp BP Pulse Ox 08/06/17 14:37 98.9 F 78 18 125/79 94 08/06/17 11:09 98.1 F 79 18 121/80 91 08/06/17 08:52 92 Intake and Output 08/06/17 08/06/17 08/06/17 07:59 15:59 23:59 Intake Total 250 / 250 Output Total 400 / 400 Balance -390 / -390 235 / 235 Intake: IV Fluids Rocephin 1,000 MG In Water for inj. (sterile) 10 ML @ 600 mls/ hr IVP DAILY [facility] Rx#:[id number] Oral 0 / 0 240 / 240 Output: Urine 400 / 400 Wound Drainage Right Upper Lateral Chest Other: Meal Lunch Percent of Meal Consumed 5% Stool Size Small Stool Consistency formed Stool Color Brown Weight 77.5 kg Patient Weight 08/06/17 23:59 Weight 77.5 kg - Labs 08/04/17 04:10 08/04/17 04:10 - VTE Documentation of Mechanical Device: Intermittent pneumatic compression device Consult Discharge Plan - Plan Referrals: Erasmo Bear MD [Non-Partnered Physician] -
[2017-08-06] MEDS: ALPRAZolam 0.5 MG TABLET PO PRN (20:23)
[2017-08-07 06:19] LABS: Basophils # 0.1 K/mcL (0.0-0.2); Basophils % 0.7 %; Eosinophils # 0.3 K/mcL (0.0-0.6); Eosinophils % 2.9 %; Hematocrit 29.7 % (35.3-44.9); Hemoglobin 9.4 g/dL (11.5-15.4); Immature Granulocytes % 0.3 % (0-4); Lymphocytes # 2.2 K/mcL (0.6-4.6); Lymphocytes % 23.9 %; Mean Corpuscular HGB Conc 31.6 g/dL (31.6-35.5); Mean Corpuscular Hemoglobin 27.4 pg (28.0-33.3); Mean Corpuscular Volume 86.6 fL (83.0-100.0); Mean Platelet Volume 8.6 fL (9.4-12.4); Monocytes # 0.8 K/mcL (0.0-1.3); Neutrophils # 5.7 K/mcL (1.6-8.9); Platelet Count 753 K/mcL (140-400); Red Blood Count 3.43 M/mcL (3.82-4.97); Red Cell Distribution Width 14.6 % (11.5-14.5); Segmented Neutrophils % 63.2 %
[2017-08-07] MEDS: cefTRIAXone 1,000 MG in Water for inj. (sterile) 20 ML 10 ML IVP SCH (09:55)
[2017-08-07] MEDS: Metoprolol XL (24 HR) Succ 25 MG TAB.ER.24H PO SCH (09:55)
[2017-08-07] MEDS: Aspirin 81 MG TAB.CHEW PO SCH (09:55)
[2017-08-07] MEDS: Furosemide 20 MG TABLET PO SCH (09:55)
[2017-08-07 10:51] VITALS: BP 136/85
--- NOTE | 2017-08-07 13:07 | General Surgery Progress Note ---
Date of Encounter: 08/07/17 Time of Encounter: 12:53 Subjective Patient reports: no new complaints, feels better Narrative: General Surgery - POD #16 Progress Note / Discharge Summary Patient doing well; voicing no complaints. Patient has not required any pain medication for at least 24 hours. Approximately 24 hours ago she was given Tylenol. The patient has remained afebrile, vital signs stable - 98.7, 76 , respiratory rate 20, blood pressure 136/85 Lungs: Diminished but persistent bibasilar rales right more pronounced on the left; satisfactory aeration. Better inspiratory effort post removal of the percutaneous/transhepatic drain Cardiac: Regular rate Abdomen: Soft, nontender. Infraumbilical and subcostal incisions both intact and healing well. No obvious fascial defects. Cultures obtained at the time of the percutaneous, transhepatic drain placement, 07/31/17- aerobic and anaerobic with no growth to date Laboratories: White count 9.1, hemoglobin 9.4 with hematocrit 29.7. Differential within normal limits. Platelet count 753,000 - Impression: Postoperative day #16 Status post admission 07/21/17 after presenting to the emergency department with abrupt onset right upper quadrant abdominal pain with nausea. Ultrasound of the gallbladder showed acute cholecystitis with distended gallbladder thickened edematous mcclure measuring up to 4.4 mm and a small amount of pericholecystic fluid. Gallstones and sludge were also noted. The patient was admitted, and IV fluids and IV antibiotics overnight and surgery completed . Laparoscopic cholecystectomy with intraoperative cholangiogram was completed without difficulty, however, I was unable to obtain adequate hemostasis laparoscopically it was necessary to complete an open celiotomy. Bleeding from the liver bed was controlled. The hemorrhage was most likely due to Xarelto which the patient had been taking prior to her hospitalization. Patient had a rather prolonged postoperative course with poor inspiratory effort and hypoventilation. She became acutely febrile on 07/29/17 with transient hypotension and tachypnea. CT showed a complex air-fluid collection in the gallbladder fossa, possible abscess. [place] [facility] was counseled and was able to place a percutaneous, transhepatic drain into the gallbladder fossa. Aerobic and anaerobic cultures of the fluid extracted were obtained and were ultimately negative for any growth. The percutaneous transhepatic drain causes considerable pleuritic pain worsening the patient's respiratory status for several days. This was eventually overcome the patient' s status stabilized and she was ultimately discharged home on 08/07/17. At the time of discharge, the patient was afebrile, hemodynamically stable, with no complaints of pain. Lungs were clear, inspiratory effort was improved and aeration was considerably better. Abdomen was soft, nontender. The patient was tolerating a regular diet Laboratories were notable for persistent anemia, H&H 9.4 and 29.7 at the time of discharge. Vital count was elevated but this was deemed related to postoperative inflammatory changes. The thrombocytosis is expected to resolve with additional healing. Discharge diagnoses: Abrupt onset right upper quadrant abdominal pain, nausea secondary to acute and chronic cholecystitis. No calculi identified by pathology despite sonographic evidence of cholelithiasis accompanying the acute cholecystitis. Postoperative complex air-fluid collection in the gallbladder fossa - most likely a hematoma which was percutaneously drained Postoperative anemia - most likely due to acute intra operative blood loss - status at the time of discharge stable History of CAD, status post coronary stent (s) Postoperative hypoxia, hypoventilation secondary to pleuritic pain - resolved at the time of discharge History of pulmonary embolism; chronic anticoagulation Xarelto Generalized anxiety/depression Hypertension Hyperlipidemia Hypothyroidism Right bundle branch block, voltage criteria for left ventricular hypertrophy Condition at discharge, good Discharge instructions Regular diet Activity as tolerated. Patient may shower, wash incision with soap and water. Continue incentive spirometry at home Outpatient follow-up with PCP within the next week Outpatient surgical follow-up, 08/14/17 Tylenol for pain Patient may resume home meds Objective Vital Signs - Last 8 Hours Temp Pulse Resp BP Pulse Ox 08/07/17 10:05 98.7 F 76 20 136/85 08/07/17 06:39 98.7 F 76 22 144/77 91 Intake and Output 08/06/17 08/07/17 08/07/17 23:59 07:59 15:59 Intake Total 0 / 0 200 / 200 250 / 250 Output Total 0 / 0 300 / 300 200 / 200 Balance 0 / 0 -100 / -100 50 / 50 Intake: IV Fluids Rocephin 1,000 MG In Water for inj. (sterile) 10 ML @ 600 mls/ hr IVP DAILY [facility] Rx#:[id number] Oral 0 / 0 200 / 200 240 / 240 Output: Urine 0 / 0 300 / 300 200 / 200 Other: Meal Breakfast Percent of Meal Consumed 5% Stool Size Small Stool Consistency soft Stool Color Brown Green # Bowel Movements 1 Weight 74.2 kg Patient Weight 08/07/17 23:59 Weight 74.2 kg - Labs 08/07/17 05:57 08/04/17 04:10 - VTE Documentation of Mechanical Device: Intermittent pneumatic compression device Consult Discharge Plan - Plan Referrals: Erasmo Bear MD [Non-Partnered Physician] -
--- NOTE | 2017-08-07 13:14 | Discharge Summary ---
Outpatient Proc Discharge Plan - Plan Additional Instructions: Regular diet Activity as tolerated; patient may shower wash incision with soap and water Patient encouraged to continue incentive spirometry at home Patient to see primary care physician within one week Outpatient surgical follow-up, 08/14/17 Patient may resume home meds Tylenol as needed for pain Home Medications: Acetaminophen [Tylenol] 1 - 2 tab PO Q6HR PRN #90 tablet 10/02/15 [Rx] Levothyroxine Sodium [Tirosint] 88 mcg PO DAILY 10/02/15 [History] ALPRAZolam [Xanax 1 MG Tablet] 1 mg PO DAILY PRN 10/09/15 [History] Omeprazole [PriLOSEC] 40 mg PO BID 10/09/15 [History] Aspirin 81 mg PO DAILY #30 tab.chew 11/12/15 [Rx] B2/Vits A,C,E/Lut/Zeaxanth/Min [Icaps Tablet] 1 tab PO DAILY 07/21/17 [History] DiphenhydraMINE [Benadryl] 25 mg PO Q6HR PRN 07/21/17 [History] Ferrous Sulfate [Iron] 325 mg PO DAILY 07/21/17 [History] Furosemide [Lasix] 20 mg PO DAILY 07/21/17 [History] Losartan [Cozaar] 25 mg PO DAILY 07/21/17 [History] Metoprolol XL (24 HR) Succ [Toprol Xl] 12.5 mg PO DAILY 07/21/17 [History] Nitroglycerin [Nitrostat] 0.4 mg SL Q5MIN PRN 07/21/17 [History] Potassium Chloride 20 meq PO DAILY 07/21/17 [History] Rivaroxaban [Xarelto] 10 mg PO DAILY 07/21/17 [History] Rosuvastatin Calcium 20 mg PO HS 07/21/17 [History] Omeprazole [PriLOSEC] 40 mg PO HS capsule. 08/07/17 [Rx]
== END 2017-08-07 14:16 | disposition home or self-care (01) | DRG 418 ==
LOC: EMEROO 10:29 → 3ANU 10:29
PROVIDERS: ADMIT Surgery; ATTEND Surgery
PROC: IRDRAIN (2017-07-31 12:00)

== ENCOUNTER 2018-03-27 14:29 | Inpatient (IN) ==
[2018-03-27] MEDS ORDERED: Ondansetron ODT 4 MG TAB.RAPDIS SL PRN (17:19)
[2018-03-27] MEDS ORDERED: Naloxone 0.4 MG/ML INJ IVP PRN (17:19)
[2018-03-27] MEDS ORDERED: Mag Hydrox/Al Hydrox/Simeth 30 ML UDC PO PRN (17:19)
[2018-03-27] MEDS ORDERED: Nitroglycerin 0.4 MG TAB.SUBL SL PRN (17:21)
--- NOTE | 2018-03-27 17:29 | Internal Med History&Physical ---
Date of Encounter: 03/27/18 Time of Encounter: 17:24 Internal Medicine - H&P: HPI Chief complaint: cp Admitted From: Hospital to Hospital Transfer Plans for Post Hospital Care: Home History of present illness: Ms. Cee is a 77 year old female past medical history of LA 2016 PCI stent to LAD gallbladder removed in 2018 PE DVT 2012 on Xarelto thyroid disease hypertension COPD non-oxygen dependent skin cancer. Patient presented PCP after experiencing approximately one week of intermittent sharp pain that radiated from mid back to right chest. This morning she awoke approximately 4:00 experiencing back pain that radiated to her right side she did experience shortness of breath and some nausea. She return to her PCP today to address her back pain and she began to experience sharp chest pain. Again pa in originating in the back radiating to her right chest he did have shortness of breath and EMS was called by the time they arrived her chest pain had subsided. There were no aggravating factors. Patient states that pain with intermittently return in the EMS administered aspirin and nitroglycerin her pain did subside after taking medication. She did have another episode of pain upon arrival to the ER however they subsided on their own. EKG was obtained which did show sinus bradycardia with a right bundle branch block with first-degree block which appears to be present and previous EKG no ST-T wave abnormalities. Initial troponin was negative d-dimer was within normal limits chest x-ray with no acute findings patient was transferred to [facility] for further cardiac workup and evaluation. Currently patient denies any chest pain or shortness of breath however does complain of headache she is hemodynamically stable. I did discuss CODE STATUS with the patient who verbalizes she would like to be a full code. Past Med Surg Social Fam HX - Past Medical History Medical history: hyperlipidemia, hypertension, myocardial infarction, pulmonary embolus, other Additional medical history: blood clot. insonmia, hital hernia Psychiatric history: anxiety, depression - Past Surgical History Surgical History: other Additional surgical history: total lt knee. rt hip replacement. left knee, back sx. 2 cardiac stents - Social History Smoking Status: Never smoker Smokeless Tobacco Status: No Alcohol use: none Drug use: none - Family History Mother Living Status: Hx Family Cardiac Disorders: Yes Internal Medicine - H&P: Meds Acetaminophen [Tylenol] 1 - 2 tab PO Q6HR PRN #90 tablet 10/02/15 [Rx] Levothyroxine Sodium [Tirosint] 88 mcg PO DAILY 10/02/15 [History] ALPRAZolam [Xanax 1 MG Tablet] 1 mg PO DAILY PRN 10/09/15 [History] Omeprazole [PriLOSEC] 40 mg PO BID 10/09/15 [History] Aspirin 81 mg PO DAILY #30 tab.chew 11/12/15 [Rx] B2/Vits A,C,E/Lut/Zeaxanth/Min [Icaps Tablet] 1 tab PO DAILY 07/21/17 [History] DiphenhydraMINE [Benadryl] 25 mg PO Q6HR PRN 07/21/17 [History] Ferrous Sulfate [Iron] 325 mg PO DAILY 07/21/17 [History] Furosemide [Lasix] 20 mg PO DAILY 07/21/17 [History] Losartan [Cozaar] 25 mg PO DAILY 07/21/17 [History] Metoprolol XL (24 HR) Succ [Toprol Xl] 12.5 mg PO DAILY 07/21/17 [History] Nitroglycerin [Nitrostat] 0.4 mg SL Q5MIN PRN 07/21/17 [History] Potassium Chloride 20 meq PO DAILY 07/21/17 [History] Rivaroxaban [Xarelto] 10 mg PO DAILY 07/21/17 [History] Rosuvastatin Calcium 20 mg PO HS 07/21/17 [History] Omeprazole [PriLOSEC] 40 mg PO HS capsule. 08/07/17 [Rx] Allergy/AdvReac Type Severity Reaction Status Date / Time adhesive tape Allergy Rash Verified 07/21/17 15:43 All Systems PM: A 10-system review of systems was performed and is negative for pertinent findings except as documented above in the HPI. - Constitutional Constitutional: no chills, no fever(s), no night sweats - EENT Eyes: no change in vision, no discharge, no pain, no photophobia Ears: no ear discharge, no ear pain, no tinnitus Nose, mouth and throat: no dysphagia, no nasal discharge, no neck pain, no sore throat - Cardiovascular Cardiovascular ROS IM: chest pain, dyspnea, edema, no diaphoresis, no lightheadedness, no palpitations, no syncope - Respiratory Respiratory: no cough, no dyspnea, no wheezing, no excessive phlegm production - Gastrointestinal Gastrointestinal: no abdominal pain, no diarrhea, no hematemesis, no hematochezi a, no melena, no nausea, no vomiting - Genitourinary Genitourinary: no change in urinary stream, no dysuria, no flank pain, no hematuria - Musculoskeletal Musculoskeletal ROS IM: no numbness, no tingling - Integumentary Integumentary IM: no rash, no unusual bruising - Neurological Neurological ROS: no confusion, no convulsions, no focal weakness, no numbness, no tingling, no tremor(s) - Hematologic/Lymphatic Hematologic/Lymphatic: no easy bruising - Constitutional Vitals: Temp Pulse Resp BP Pulse Ox 97.5 F L 84 20 164/82 93 03/27/18 16:32 03/27/18 16:32 03/27/18 16:32 03/27/18 16:32 03/27/18 16:32 General appearance: Present: A&O X 3, answers questions appropriately Exam: . - Head Head exam: Present: atraumatic, normocephalic - Eye Eye exam: Present: PERRL, conjuntiva pink, sclera anicteric Pupils: Present: PERRL - Neck Neck exam general surgery: Present: supple, trachea midline. Absent: lymphadenopathy - Respiratory Respiratory exam: Present: CTAB. Absent: accessory muscle use, rales, rhonchi, wheezes Additional comments: Faint crackles noted - Cardiovascular Cardiovascular exam: Present: RRR, +S1, +S2. Absent: diastolic murmur, gallop, rubs, systolic murmur - GI/Abdominal GI/Abdominal exam: Present: normal bowel sounds, soft, no peritoneal signs. Absent: distended, tenderness - Extremities Exam Extremities exam: Present: warm, radial pulses palpable and symmetrical. Absent: calf tenderness, cyanotic, pedal edema - Neurological Exam Neurological exam: Present: CN II-XII intact, oriented X3, no focal deficits. Absent: pronater drift, facial droop, speech deficit - Skin Skin exam: Present: dry, intact Internal Med - H&P Results - Labs Labs: CBC 03/27/2018 WBC 6.6 hemoglobin 15.7 hematocrit 47.4 platelets 243 Chem-7 03/27/2018 Sodium 141 potassium 4.1 chloride 105 CO2 26 BUN 27 glucose 90 creatinine 1.02 GFR 52 d-dimer 312 PT 18.9 INR 1.47 PTT 37.2 Troponin less than 0.1 (0.0000.056 ng/ML) - Impressions Chest x-ray per radiology read 03/27/2018 The heart size is normal. There is a large hiatal hernia. Pulmonary vascular is normal. There is a mild prominence of interstitial markings not changed since 05/28/2017. No focal consolidation, mass, effusion or pneumothorax - Assessment and plan (1) Chest pain Current Visit: Yes Status: Acute Assessment and plan: Patient had a sudden onset of sharp chest pain initiated in her back radiating to her right chest with associated symptoms of shortness of breath and nausea. Patient does have a cardiac history with a LA and 2016 -stent to LAD-she follows with Dr. Grayson -at [facility]-patient states her last stress test was approximately 4 or 5 years ago -initial troponin is negative EKG with no ST-T wave abnormalities right bundle branch with first-degree block and appears to be present and previous EKG We will continue with troponins Nitroglycerin as needed for chest pain Aspirin and statin beta felicia Continuous cardiac monitoring We will make patient nothing by mouth after midnight for possible stress test in a.m. Cardiac echo Lipid profile in a.m. TSH Consult cardiology as needed Qualifiers: Chest pain type: unspecified Qualified Code(s): R07.9 - Chest pain, unspecified (2) History of pulmonary embolism Current Visit: Yes Status: Acute Assessment and plan: Patient has a history of pulmonary embolism and DVT continue was Xarelto (3) CHF (congestive heart failure) Current Visit: No Status: Chronic Assessment and plan: Per history patient states she has possible CHF currently on Lasix we will obtain cardiac echo Continue with Lasix Continuous cardiac monitoring Qualifiers: Heart failure type: unspecified Heart failure chronicity: unspecified Qualified Code(s): I50.9 - Heart failure, unspecified (4) CAD (coronary artery disease) Current Visit: No Status: Acute Assessment and plan: Stent to LAD and 2016 Aspirin and statin beta felicia Qualifiers: Coronary Disease-Associated Artery/Lesion type: [place] artery [place] vs. transplanted heart: [place] heart Associated angina: with unstable angina Qualified Code(s): I25.110 - Atherosclerotic heart disease of [place] coronary artery with unstable angina pectoris (5) Hypothyroidism Current Visit: No Status: Acute Assessment and plan: We will check TSH Continue with Synthroid Qualifiers: Hypothyroidism type: acquired Qualified Code(s): E03.9 - Hypothyroidism, unspecified (6) DVT prophylaxis Current Visit: Yes Status: Acute Assessment and plan: On Xarelto - Time Spent With Patient Total time spent is greater than 50% in coordination of care (as documented) at patient's floor/unit and/or counseling patient:
[2018-03-27] MEDS: Acetaminophen 325 MG TABLET PO PRN (21:08)
[2018-03-27] MEDS: *HR* HYDROcodone/Acet 5/325 mg TABLET PO PRN (22:31)
[2018-03-27] MEDS: ALPRAZolam 1 MG TABLET PO SCH (22:32)
[2018-03-28 00:44] LABS: Basophils % 0.6 %; Eosinophils # 0.2 K/mcL (0.0-0.6); Eosinophils % 2.5 %; Hematocrit 43.2 % (35.3-44.9); Hemoglobin 14.1 g/dL (11.5-15.4); Immature Granulocytes % 0.2 % (0-4); Lymphocytes # 2.9 K/mcL (0.6-4.6); Mean Corpuscular HGB Conc 32.6 g/dL (31.6-35.5); Mean Corpuscular Volume 88.7 fL (83.0-100.0); Mean Platelet Volume 9.7 fL (9.4-12.4); Monocytes # 0.5 K/mcL (0.0-1.3); Monocytes % 7.7 %; Neutrophils # 2.9 K/mcL (1.6-8.9); Platelet Count 239 K/mcL (140-400); Red Blood Count 4.87 M/mcL (3.82-4.97); Red Cell Distribution Width 14.5 % (11.5-14.5)
[2018-03-28 01:05] LABS: BUN/Creatinine Ratio 22 (6-26); Blood Urea Nitrogen 26 mg/dL (8-23); Calcium 8.6 mg/dL (8.6-10.3); Carbon Dioxide 28 mEq/L (23-29); Chloride 106 mEq/L (98-107); Chol/HDL Ratio 2.4 (0-4.9); Cholesterol 109 mg/dL (< 200); Glucose 108 mg/dL (70-105); HDL Cholesterol 46 mg/dL (40-59); LDL Cholesterol,Calculated 41 mg/dL (0-99); Magnesium 1.8 mg/dL (1.6-2.6); Osmolality,Calculated 295 (280-300); Potassium 3.5 mEq/L (3.5-5.1); Sodium 140 mEq/L (136-145); Triglycerides 111 mg/dL (< 150); Troponin I < 0.03 ng/mL (< 0.04); eGFR For Non-African Americans 45 (> 60)
[2018-03-28 01:19] LABS: Thyroid Stimulating Hormone 2.398 mcIU/mL (0.340-5.600)
[2018-03-28] MEDS: *HR* HYDROcodone/Acet 5/325 mg TABLET PO PRN ×3 (05:04→20:14)
[2018-03-28] MEDS: Acetaminophen 325 MG TABLET PO PRN (06:33)
[2018-03-28] MEDS ORDERED: traMADol 50 MG TABLET PO ONE (06:39)
--- NOTE | 2018-03-28 07:51 | Event Note ---
Date of Encounter: 03/28/18 Time of Encounter: 06:29 Alerted by patient's nurse YOUNG Gipson that patient was complaining of pain radiating from the right upper quadrant to her back, worse than yesterday. Patient had received [place] with no relief. Patient reports SOB. Hx of PE. BP 145/80, HR 60, SPO2 92% on room air, RR 20. Patient denies chest pain. VQ scan ordered to rule out PE due to patient's current renal dysfunction. Will monitor results.
[2018-03-28] MEDS ORDERED: NON-FORMULARY MEDICATION 1 EACH EACH (Omeprazole [Prilosec] 40 MG) PO SCH (09:00)
--- NOTE | 2018-03-28 09:12 | Internal Med Progress Note ---
Hospitalist Progress Note - Encounter Date of Encounter: 03/28/18 Time of Encounter: 08:59 - Subjective Interval History: Patient seen and examined at bedside denies any chest pain this time however continues to complain of right flank pain that radiates to right upper quadrant. Denies any shortness of breath at this time. Patient will undergo V/Q scan as well as CT of abdomen. Discussed her plan with the patient verbalized understanding - Exam Vitals: Temp Pulse Resp BP Pulse Ox 97.8 F 58 15 132/77 94 03/28/18 07:16 03/28/18 07:16 03/28/18 07:16 03/28/18 07:16 03/28/18 07:16 Exam: . - Assessment and Plan (1) Chest pain Current Visit: Yes Status: Acute Assessment and Plan: Currently denies any chest pain Troponins are negative EKG with no ST abnormalities Cardiac echo Impression All LV mcclure not well visualized, LVEF grossly mild reduction Basal sigmoid septum Mild left ventricular diastolic dysfunction Normal right ventricular structure and function Mildly dilated left atrium Mild tricuspid regurgitation No pulmonary hypertension Recommend limited echo with Definity for LVEF and wall motion TSH normal Offered stress test however patient is fearful because she had TX from previous Lexiscan. We will consult cardiology (2) History of pulmonary embolism Current Visit: Yes Status: Acute Assessment and Plan: Patient has a history of pulmonary embolism and DVT continue was Xarelto-VQ scan (3) CHF (congestive heart failure) Current Visit: No Status: Chronic Assessment and Plan: Per history patient states she has possible CHF currently on Lasix we will obtain cardiac echo Continue with Lasix Continuous cardiac monitoring Does not appear to be fluid overloaded at this time (4) CAD (coronary artery disease) Current Visit: No Status: Acute Assessment and Plan: Stent to LAD and 2016 Aspirin and statin beta felicia (5) Hypothyroidism Current Visit: No Status: Acute Assessment and Plan: TSH normal Continue with Synthroid (6) DVT prophylaxis Current Visit: Yes Status: Acute Assessment and Plan: On Xarelto - Time Spent with Patient Total time spent is greater than 50% in coordination of care (as documented) at patient's floor/unit and/or counseling patient: Internal Medicine: Result - Labs CBC & Chem 7: 03/28/18 00:14 03/28/18 00:14 Labs: Short CBC 03/28/18 Range/Units 00:14 WBC 6.5 (4.3-11.1) K/mcL Hgb 14.1 (11.5-15.4) g/dL Hct 43.2 (35.3-44.9) % Plt Count 239 (140-400) K/mcL Neutrophils # 2.9 (1.6-8.9) K/mcL BMP 03/28/18 00:14 Sodium 140 Potassium 3.5 Chloride 106 Carbon Dioxide 28 BUN 26 H Creatinine 1.16 Glucose 108 H Calcium 8.6 Cardiac Enzymes 03/27/18 03/28/18 03/28/18 Range/Units 19:13 00:14 05:47 Troponin I < 0.03 < 0.03 < 0.03 (< 0.04) ng/mL Consult Discharge Plan - Plan Referrals: Katia Cordoba CNP [Primary Care Provider] - (Follow up has been requested. ) (1) Chest pain Qualifiers: Chest pain type: unspecified Qualified Code(s): R07.9 - Chest pain, unspecified (3) CHF (congestive heart failure) Qualifiers: Heart failure type: unspecified Heart failure chronicity: unspecified Qualified Code(s): I50.9 - Heart failure, unspecified (4) CAD (coronary artery disease) Qualifiers: Coronary Disease-Associated Artery/Lesion type: [place] artery [place] vs. transplanted heart: [place] heart Associated angina: with unstable angina Qualified Code(s): I25.110 - Atherosclerotic heart disease of [place] coronary artery with unstable angina pectoris (5) Hypothyroidism Qualifiers: Hypothyroidism type: acquired Qualified Code(s): E03.9 - Hypothyroidism, unspecified
[2018-03-28] MEDS ORDERED: DiphenhydraMINE CREAM 28.4 GM TUBE TP PRN (09:18)
[2018-03-28 09:47] LABS: Alanine Aminotransferase 29 Units/L (7-52); Albumin 3.4 g/dL (3.5-5.7); Albumin/Globulin Ratio 1.4 (1.1-2.2); Alkaline Phosphatase 55 Units/L (34-104); Aspartate Amino Transferase 38 Units/L (13-39); Bilirubin,Direct 0.1 mg/dL (0.0-0.2); Bilirubin,Indirect 0.5 mg/dL (0.0-1.2); Bilirubin,Total 0.6 mg/dL (0.3-1.0); Globulin 2.4 g/dL (2.4-3.5); Lipase 36 Units/L (11-82); Total Protein 5.8 g/dL (6.4-8.9)
[2018-03-28 10:05] LABS: Bilirubin,Urine Negative (Negative); Blood,Urine Negative (Negative); Clarity,Urine Clear (Clear); Color,Urine Yellow (Yellow); Glucose,Urine (UA) Normal (Normal); Ketones,Urine Negative (Negative); Leukocyte Esterase,Urine Moderate (Negative); Nitrite,Urine Negative (Negative); PH,Urine 5.5 pH Units (5.0-8.0); Protein,Urine Trace mg/dL (Neg-Trace); Urobilinogen,Urine Normal (Normal)
[2018-03-28 10:08] LABS: Bacteria,Urine None Seen per hpf (None-Few); Hyaline Casts,Urine None Seen per lpf (None-Few); RBC,Urine 0-3 per hpf (0-3); Squamous Epithelial Cell,Urine Many per lpf (None-Few); WBC,Urine 15-30 per hpf (0-3)
[2018-03-28] MEDS: Metoprolol XL (24 HR) Succ 25 MG TAB.ER.24H PO SCH (11:30)
[2018-03-28] MEDS: Furosemide 20 MG TABLET PO SCH (11:31)
[2018-03-28] MEDS: *HR* Rivaroxaban 10 MG TABLET PO SCH (11:31)
[2018-03-28] MEDS: Aspirin 81 MG TAB.CHEW PO SCH (11:32)
[2018-03-28] MEDS ORDERED: Trolamine Salicylate/Aloe Vera 35.4 GM TUBE TP PRN (17:10)
[2018-03-28] MEDS: ALPRAZolam 1 MG TABLET PO SCH (20:14)
[2018-03-29] MEDS: Acetaminophen 325 MG TABLET PO PRN (01:18)
[2018-03-29] MEDS ORDERED: *HR* OxyCODONE Immed Rel 5 MG TABLET PO ONE (01:50)
[2018-03-29] MEDS: *HR* HYDROcodone/Acet 5/325 mg TABLET PO PRN ×2 (06:54→19:40)
[2018-03-29] MEDS: Metoprolol XL (24 HR) Succ 25 MG TAB.ER.24H PO SCH (10:15)
[2018-03-29] MEDS: Aspirin 81 MG TAB.CHEW PO SCH (10:15)
[2018-03-29] MEDS: *HR* Rivaroxaban 10 MG TABLET PO SCH (10:16)
[2018-03-29] MEDS: Furosemide 20 MG TABLET PO SCH (10:16)
--- NOTE | 2018-03-29 10:34 | Internal Med Progress Note ---
Hospitalist Progress Note - Encounter Date of Encounter: 03/29/18 Time of Encounter: 10:00 - Subjective Interval History: Patient seen and examined at bedside denies any chest pain this time however continues to complain of right flank pain that radiates to right upper quadrant. Denies any shortness of breath nausea or vomiting. I did discuss the results of echo and CAT scan. Advised that echo was inconclusive concerning EF Repeat echo patient verbalized understanding - Exam Vitals: Temp Pulse Resp BP Pulse Ox 97.8 F 97 16 160/94 92 03/29/18 07:40 03/29/18 07:40 03/29/18 07:40 03/29/18 07:40 03/29/18 07:40 Exam: Skin: Free of rash and discoloration. Eyes: Sclera is white. There is no discharge from eyes. ENMT: Oral/pharyngeal mucosa is normal in appearance. There is no discharge from nose or ears. Respiratory: Normal breath sounds with no crackles and wheezes bilaterally. CV: Heart is regular with no gallop or murmur. GI: Abdomen is flat and soft with no palpable mass or visceromegaly.-Right upper quadrant tenderness : There is right sided flank tenderness radiating to right upper quadrant Neuro exam: He has good strength in upper and lower extremities. He has normal eye movements. Psychiatric: He has normal affect. His thought process is appropriate to the situation. - Assessment and Plan (1) Chest pain Current Visit: Yes Status: Acute Assessment and Plan: Currently denies any chest pain Troponins are negative EKG with no ST abnormalities Cardiac echo Impression All LV mcclure not well visualized, LVEF grossly mild reduction Basal sigmoid septum Mild left ventricular diastolic dysfunction Normal right ventricular structure and function Mildly dilated left atrium Mild tricuspid regurgitation No pulmonary hypertension Recommend limited echo with Definity for LVEF and wall motion TSH normal Offered stress test however patient is fearful because she had MA from previous Lexiscan. I did discuss the case with cardiology who recommends repeat of echo and if the patient will cooperate possible stress test (2) History of pulmonary embolism Current Visit: Yes Status: Acute Assessment and Plan: Patient has a history of pulmonary embolism and DVT continue was Xarelto-VQ scan low probability for pulmonary embolism (3) CHF (congestive heart failure) Current Visit: No Status: Chronic Assessment and Plan: Per history patient states she has possible CHF currently on Lasix we will obtain cardiac echo Continue with Lasix Continuous cardiac monitoring Does not appear to be fluid overloaded at this time (4) CAD (coronary artery disease) Current Visit: No Status: Acute Assessment and Plan: MA with Stent to LAD 2015 Aspirin and statin beta felicia (5) Hypothyroidism Current Visit: No Status: Acute Assessment and Plan: TSH normal Continue with Synthroid (6) DVT prophylaxis Current Visit: Yes Status: Acute Assessment and Plan: On Xarelto (7) Right sided abdominal pain Current Visit: Yes Status: Acute Assessment and Plan: Patient complains of right-sided flank pain that radiates to right upper quadrant CT of abdomen IMPRESSION: 1. No acute findings within the abdomen or pelvis. Extensive colonic diverticulosis with no acute features. The appendix is unremarkable. No evidence of obstructive uropathy. 2. Previous cholecystectomy. Increased intrahepatic and extrahepatic biliary dilatation, likely physiologic in the post cholecystectomy state. 3. Stable moderate hiatal hernia. Gallbladder ultrasound Limited examination as noted. Prior cholecystectomy. Otherwise unremarkable exam. X-ray of ribs and chest 03/24 2018 No acute abnormality of the right ribs. No acute process in the lungs. X-ray of thoracic spine 03/24 2018 IMPRESSION: No acute osseous abnormality of the thoracic spine. Osteopenia. Continue with current pain medication I do not see any signs or symptoms of any possible shingles - Time Spent with Patient Total time spent is greater than 50% in coordination of care (as documented) at patient's floor/unit and/or counseling patient: Internal Medicine: Result - Labs CBC & Chem 7: 03/28/18 00:14 03/28/18 00:14 - Impressions Impressions Abdomen/Pelvis CT 03/28/18 10:50 IMPRESSION: 1. No acute findings within the abdomen or pelvis. Extensive colonic diverticulosis with no acute features. The appendix is unremarkable. No evidence of obstructive uropathy. 2. Previous cholecystectomy. Increased intrahepatic and extrahepatic biliary dilatation, likely physiologic in the post cholecystectomy state. 3. Stable moderate hiatal hernia. D/ / 03/28/2018 13:47:06 [facility] Inter[facility]ting Provider: Roberto Deluna MD Pulmonary Perfusion Imaging 03/28/18 12:37 IMPRESSION: Low probability for pulmonary embolus. D/ / Mj Gardner MD / Mj Gardner MD Interpreting Provider: Mj Gardner MD Consult Discharge Plan - Plan Referrals: Katia Cordoba, SENIOR FINANCIAL REPORTING ANALYST [Primary Care Provider] - (Follow up has been requested. ) (1) Chest pain Qualifiers: Chest pain type: unspecified Qualified Code(s): R07.9 - Chest pain, unspecified (3) CHF (congestive heart failure) Qualifiers: Heart failure type: unspecified Heart failure chronicity: unspecified Qualified Code(s): I50.9 - Heart failure, unspecified (4) CAD (coronary artery disease) Qualifiers: Coronary Disease-Associated Artery/Lesion type: [place] artery [place] vs. transplanted heart: [place] heart Associated angina: with unstable angina Qualified Code(s): I25.110 - Atherosclerotic heart disease of [place] coronary artery with unstable angina pectoris (5) Hypothyroidism Qualifiers: Hypothyroidism type: acquired Qualified Code(s): E03.9 - Hypothyroidism, unspecified
[2018-03-29] MEDS ORDERED: Perflutren Lipid Microsphere 1.3 ML in 0.9 % Sodium Chloride 8.7 ML IVP ONE (11:50)
[2018-03-29] MEDS: *HR* OxyCODONE Immed Rel 5 MG TABLET PO PRN ×2 (13:43→23:02)
[2018-03-29] MEDS: Gabapentin 100 MG CAPSULE PO SCH (19:40)
[2018-03-29] MEDS: ALPRAZolam 1 MG TABLET PO SCH (21:01)
[2018-03-30] MEDS: ALPRAZolam 1 MG TABLET PO SCH ×2 (01:41→20:22)
[2018-03-30] MEDS ORDERED: Regadenoson 0.4 MG/5 ML SYRINGE IVP ONE (05:54)
[2018-03-30] MEDS: *HR* HYDROcodone/Acet 5/325 mg TABLET PO PRN ×2 (06:26→23:01)
[2018-03-30] MEDS: Metoprolol XL (24 HR) Succ 25 MG TAB.ER.24H PO SCH (08:55)
[2018-03-30] MEDS: Aspirin 81 MG TAB.CHEW PO SCH (08:55)
[2018-03-30] MEDS: Gabapentin 100 MG CAPSULE PO SCH ×3 (08:56→20:22)
[2018-03-30] MEDS: *HR* Rivaroxaban 10 MG TABLET PO SCH (08:56)
[2018-03-30] MEDS: Furosemide 20 MG TABLET PO SCH (08:56)
[2018-03-30 10:06] LABS: Hematocrit 47.4 % (35.3-44.9); Hemoglobin 15.2 g/dL (11.5-15.4); Mean Corpuscular HGB Conc 32.1 g/dL (31.6-35.5); Mean Corpuscular Volume 90.5 fL (83.0-100.0); Mean Platelet Volume 9.8 fL (9.4-12.4); Platelet Count 231 K/mcL (140-400); Red Blood Count 5.24 M/mcL (3.82-4.97); Red Cell Distribution Width 14.6 % (11.5-14.5)
[2018-03-30] MEDS ORDERED: Ketorolac 15 MG/ML VIAL IVP ONE (10:15)
[2018-03-30 10:25] LABS: BUN/Creatinine Ratio 21 (6-26); Blood Urea Nitrogen 19 mg/dL (8-23); Calcium 8.9 mg/dL (8.6-10.3); Carbon Dioxide 27 mEq/L (23-29); Chloride 107 mEq/L (98-107); Glucose 113 mg/dL (70-105); Osmolality,Calculated 301 (280-300); Potassium 3.7 mEq/L (3.5-5.1); Sodium 144 mEq/L (136-145); eGFR For Non-African Americans > 60 (> 60)
--- NOTE | 2018-03-30 10:38 | Internal Med Progress Note ---
Hospitalist Progress Note - Encounter Date of Encounter: 03/30/18 Time of Encounter: 10:38 - Subjective Interval History: Patient seen and examined at bedside denies any chest pain this time however continues to complain of right flank pain that radiates to right upper quadrant. Denies any shortness of breath nausea or vomiting. I did discuss treatment plan with the patient as well as pain medication. States that Toradol has improved pain somewhat tolerating oral intake at this time - Exam Vitals: Temp Pulse Resp BP Pulse Ox 96.4 F L 78 20 132/88 93 03/30/18 06:40 03/30/18 06:40 03/30/18 06:40 03/30/18 06:40 03/30/18 06:40 Exam: Skin: Free of rash and discoloration. Eyes: Sclera is white. There is no discharge from eyes. ENMT: Oral/pharyngeal mucosa is normal in appearance. There is no discharge from nose or ears. Respiratory: Normal breath sounds with no crackles and wheezes bilaterally. CV: Heart is regular with no gallop or murmur. GI: Abdomen is flat and soft with no palpable mass or visceromegaly.-Right upper quadrant tenderness : There is right sided flank tenderness radiating to right upper quadrant Neuro exam: He has good strength in upper and lower extremities. He has normal eye movements. Psychiatric: He has normal affect. His thought process is appropriate to the situation. - Assessment and Plan (1) Chest pain Current Visit: Yes Status: Acute Assessment and Plan: Currently denies any chest pain Troponins are negative EKG with no ST abnormalities Cardiac echo Patient will undergo cardiac stress test in the a.m. nothing by mouth after midnight Impression All LV mcclure not well visualized, LVEF grossly mild reduction Basal sigmoid septum Mild left ventricular diastolic dysfunction Normal right ventricular structure and function Mildly dilated left atrium Mild tricuspid regurgitation No pulmonary hypertension Recommend limited echo with Definity for LVEF and wall motion TSH normal Offered stress test however patient is fearful because she had PA from previous Lexiscan. I did discuss the case with cardiology who recommends repeat of echo and if the patient will cooperate possible stress test (2) History of pulmonary embolism Current Visit: Yes Status: Acute Assessment and Plan: Patient has a history of pulmonary embolism and DVT continue was Xarelto-VQ scan low probability for pulmonary embolism (3) CHF (congestive heart failure) Current Visit: No Status: Chronic Assessment and Plan: Per history patient states she has possible CHF currently on Lasix we will obtain cardiac echo Continue with Lasix Continuous cardiac monitoring Does not appear to be fluid overloaded at this time (4) CAD (coronary artery disease) Current Visit: No Status: Acute Assessment and Plan: [place] with Stent to LAD 2015 Aspirin and statin beta felicia Denies chest pain at this time (5) Hypothyroidism Current Visit: No Status: Acute Assessment and Plan: TSH normal Continue with Synthroid (6) DVT prophylaxis Current Visit: Yes Status: Acute Assessment and Plan: On Xarelto (7) Right sided abdominal pain Current Visit: Yes Status: Acute Assessment and Plan: Patient complains of right-sided flank pain that radiates to right upper quadrant CT of abdomen IMPRESSION: 1. No acute findings within the abdomen or pelvis. Extensive colonic diverticulosis with no acute features. The appendix is unremarkable. No evidence of obstructive uropathy. 2. Previous cholecystectomy. Increased intrahepatic and extrahepatic biliary dilatation, likely physiologic in the post cholecystectomy state. 3. Stable moderate hiatal hernia. Gallbladder ultrasound Limited examination as noted. Prior cholecystectomy. Otherwise unremarkable exam. X-ray of ribs and chest 03/24 2018 No acute abnormality of the right ribs. No acute process in the lungs. X-ray of thoracic spine 03/24 2018 IMPRESSION: No acute osseous abnormality of the thoracic spine. Osteopenia. Continue with current pain medication I do not see any signs or symptoms of any possible shingles I will consult GI - Time Spent with Patient Total time spent is greater than 50% in coordination of care (as documented) at patient's floor/unit and/or counseling patient: Internal Medicine: Result - Labs CBC & Chem 7: 03/30/18 09:26 03/30/18 09:26 Labs: Short CBC 03/30/18 Range/Units 09:26 WBC 5.5 (4.3-11.1) K/mcL Hgb 15.2 (11.5-15.4) g/dL Hct 47.4 H (35.3-44.9) % Plt Count 231 (140-400) K/mcL BMP 03/30/18 09:26 Sodium 144 Potassium 3.7 Chloride 107 Carbon Dioxide 27 BUN 19 Creatinine 0.89 Glucose 113 H Calcium 8.9 - Impressions Impressions Echocardiogram Limited Views 03/29/18 09:11 Impressions: LVEF 55%. Normal LV chamber size and systolic function. Basal sigmoid septum. Left Ventricular Wall Motion: Rest Echo Findings All wall segments showed normal motion. Findings: Study Quality * Technically adequate exam. ECG Findings * Sinus rhythm with BBB. Left Ventricle * LVEF 55%. * Basal sigmoid septum. * Normal LV chamber size and systolic function. Gallbladder Ultrasound 03/29/18 09:59 IMPRESSION: Limited examination as noted. Prior cholecystectomy. Otherwise unremarkable exam. D/ / Mj Gardner MD / Mj Gardner MD Interpreting Provider: Mj Gardner MD Consult Discharge Plan - Plan Referrals: Katia Cordoba CNP [Primary Care Provider] - (Follow up has been requested. ) (1) Chest pain Qualifiers: Chest pain type: unspecified Qualified Code(s): R07.9 - Chest pain, unspecified (3) CHF (congestive heart failure) Qualifiers: Heart failure type: unspecified Heart failure chronicity: unspecified Qualified Code(s): I50.9 - Heart failure, unspecified (4) CAD (coronary artery disease) Qualifiers: Coronary Disease-Associated Artery/Lesion type: [place] artery [place] vs. transplanted heart: [place] heart Associated angina: with unstable angina Qualified Code(s): I25.110 - Atherosclerotic heart disease of [place] coronary artery with unstable angina pectoris (5) Hypothyroidism Qualifiers: Hypothyroidism type: acquired Qualified Code(s): E03.9 - Hypothyroidism, unspecified
--- NOTE | 2018-03-30 22:19 | Event Note ---
Date of Encounter: 03/30/18 Time of Encounter: 22:15 Alerted by pts. nurse YOUNG David that the pt. was having an allergic rxn to the heart monitor stickers even with Benadryl. Areas of welts where stickers were. Order for tele DCd and pts. nurse instructed to monitor the pt. very closely for cardiac sx or any adverse changes.
[2018-03-31] MEDS: *HR* HYDROcodone/Acet 5/325 mg TABLET PO PRN (06:05)
[2018-03-31] MEDS ORDERED: Regadenoson 0.4 MG/5 ML SYRINGE IVP ONE (06:39)
[2018-03-31] MEDS: Aspirin 81 MG TAB.CHEW PO SCH (09:12)
[2018-03-31] MEDS: Gabapentin 100 MG CAPSULE PO SCH ×3 (09:12→21:21)
[2018-03-31] MEDS: *HR* OxyCODONE Immed Rel 5 MG TABLET PO PRN ×2 (09:13→20:11)
[2018-03-31] MEDS: *HR* Rivaroxaban 10 MG TABLET PO SCH (09:13)
[2018-03-31] MEDS: Furosemide 20 MG TABLET PO SCH (09:13)
[2018-03-31] MEDS: Metoprolol XL (24 HR) Succ 25 MG TAB.ER.24H PO SCH (09:13)
--- NOTE | 2018-03-31 09:14 | Internal Med Progress Note ---
Hospitalist Progress Note - Encounter Date of Encounter: 03/31/18 Time of Encounter: 09:14 - Subjective Interval History: Patient seen and examined at bedside denies any chest pain this time however continues to complain of right flank pain that radiates to right upper quadrant. Denies any nausea or vomiting and is improved with pain medication. She does have several areas on her chest and abdomen that are red with welts secondary to reaction from EKG pads. We will continue with topical Benadryl as well as oral and add cortisone cream. Patient is to undergo cardiac stress test today and will be evaluated by GI - Exam Vitals: Temp Pulse Resp BP Pulse Ox 98.0 F 61 14 115/74 94 03/31/18 03:33 03/31/18 03:33 03/31/18 03:33 03/31/18 03:33 03/31/18 03:33 Exam: Skin: Has red raised welts on chest and upper abdomen Eyes: Sclera is white. There is no discharge from eyes. ENMT: Oral/pharyngeal mucosa is normal in appearance. There is no discharge from nose or ears. Respiratory: Normal breath sounds with no crackles and wheezes bilaterally. CV: Heart is regular with no gallop or murmur. GI: Abdomen is flat and soft with no palpable mass or visceromegaly.-Right upper quadrant tenderness : There is right sided flank tenderness radiating to right upper quadrant Neuro exam: He has good strength in upper and lower extremities. He has normal eye movements. Psychiatric: He has normal affect. His thought process is appropriate to the situation. - Assessment and Plan (1) Chest pain Current Visit: Yes Status: Acute Assessment and Plan: Currently denies any chest pain Troponins are negative EKG with no ST abnormalities Cardiac echo Abnormal cardiac stress test revealed small sized moderate to severe intensity perfusion defects seen in the mid distal portion of the inferior wall possibly representing ischemia. A small sized mild intensity perfusion defect observed during rest with normal wall motion suggesting artifact gait EF is 57% Evaluated by cardiology recommending possible left heart catheter. Patient will be nothing by mouth after midnight and Xarelto will be held Impression All LV mcclure not well visualized, LVEF grossly mild reduction Basal sigmoid septum Mild left ventricular diastolic dysfunction Normal right ventricular structure and function Mildly dilated left atrium Mild tricuspid regurgitation No pulmonary hypertension Recommend limited echo with Definity for LVEF and wall motion TSH normal (2) History of pulmonary embolism Current Visit: Yes Status: Acute Assessment and Plan: Patient has a history of pulmonary embolism -VQ scan low probability for pulmonary embolism Holding Xarelto for possible left heart catheter in the a.m. (3) CHF (congestive heart failure) Current Visit: No Status: Chronic Assessment and Plan: Per history patient states she has possible CHF currently on Lasix Continue with Lasix Continuous cardiac monitoring Does not appear to be fluid overloaded at this time Cardiac echo EF 55% Normal LV chamber size and systolic function (4) CAD (coronary artery disease) Current Visit: No Status: Acute Assessment and Plan: [place] with Stent to LAD 2015 Aspirin and statin beta felicia Denies chest pain at this time (5) Hypothyroidism Current Visit: No Status: Acute Assessment and Plan: TSH normal Continue with Synthroid (6) DVT prophylaxis Current Visit: Yes Status: Acute Assessment and Plan: On Xarelto (7) Right sided abdominal pain Current Visit: Yes Status: Acute Assessment and Plan: Patient complains of right-sided flank pain that radiates to right upper quadrant CT of abdomen IMPRESSION: 1. No acute findings within the abdomen or pelvis. Extensive colonic diverticulosis with no acute features. The appendix is unremarkable. No evidence of obstructive uropathy. 2. Previous cholecystectomy. Increased intrahepatic and extrahepatic biliary dilatation, likely physiologic in the post cholecystectomy state. 3. Stable moderate hiatal hernia. Gallbladder ultrasound Limited examination as noted. Prior cholecystectomy. Otherwise unremarkable exam. X-ray of ribs and chest 03/24 2018 No acute abnormality of the right ribs. No acute process in the lungs. X-ray of thoracic spine 03/24 2018 IMPRESSION: No acute osseous abnormality of the thoracic spine. Osteopenia. Continue with current pain medication I do not see any signs or symptoms of any possible shingles GI was consulted patient underwent EGD-large hiatal hernia, gastritis (8) Allergic dermatitis Current Visit: Yes Status: Acute Assessment and Plan: 1 patient had reaction to EKG pads has several welts erythremia itching given Benadryl as well as topical Benadryl and hydrocortisone - Time Spent with Patient Total time spent is greater than 50% in coordination of care (as documented) at patient's floor/unit and/or counseling patient: Internal Medicine: Result - Labs CBC & Chem 7: 03/31/18 09:31 03/31/18 09:31 Labs: Short CBC 03/30/18 Range/Units 09:26 WBC 5.5 (4.3-11.1) K/mcL Hgb 15.2 (11.5-15.4) g/dL Hct 47.4 H (35.3-44.9) % Plt Count 231 (140-400) K/mcL [facility] 03/30/18 09:26 Sodium 144 Potassium 3.7 Chloride 107 Carbon Dioxide 27 BUN 19 Creatinine 0.89 Glucose 113 H Calcium 8.9 Consult Discharge Plan - Plan Referrals: Katia Cordoba RETORT SETTER [Primary Care Provider] - 04/06/18 1:00 pm () (1) Chest pain Qualifiers: Chest pain type: unspecified Qualified Code(s): R07.9 - Chest pain, unspecified (3) CHF (congestive heart failure) Qualifiers: Heart failure type: unspecified Heart failure chronicity: unspecified Qualified Code(s): I50.9 - Heart failure, unspecified (4) CAD (coronary artery disease) Qualifiers: Coronary Disease-Associated Artery/Lesion type: [place] artery [place] vs. transplanted heart: [place] heart Associated angina: with unstable angina Qualified Code(s): I25.110 - Atherosclerotic heart disease of [place] coronary artery with unstable angina pectoris (5) Hypothyroidism Qualifiers: Hypothyroidism type: acquired Qualified Code(s): E03.9 - Hypothyroidism, unspecified
[2018-03-31] MEDS: Nystatin POWDER 30 GM BOTTLE TP SCH ×2 (09:23→21:21)
[2018-03-31 10:09] LABS: Basophils % 0.7 %; Eosinophils # 0.2 K/mcL (0.0-0.6); Eosinophils % 3.5 %; Hematocrit 46.7 % (35.3-44.9); Hemoglobin 14.8 g/dL (11.5-15.4); Immature Granulocytes % 0.2 % (0-4); Lymphocytes # 1.9 K/mcL (0.6-4.6); Lymphocytes % 32.8 %; Mean Corpuscular HGB Conc 31.7 g/dL (31.6-35.5); Mean Corpuscular Hemoglobin 28.7 pg (28.0-33.3); Mean Corpuscular Volume 90.5 fL (83.0-100.0); Mean Platelet Volume 9.9 fL (9.4-12.4); Monocytes # 0.5 K/mcL (0.0-1.3); Monocytes % 7.8 %; Neutrophils # 3.2 K/mcL (1.6-8.9); Platelet Count 210 K/mcL (140-400); Red Blood Count 5.16 M/mcL (3.82-4.97); Red Cell Distribution Width 14.5 % (11.5-14.5)
[2018-03-31 10:30] LABS: BUN/Creatinine Ratio 26 (6-26); Blood Urea Nitrogen 22 mg/dL (8-23); Calcium 8.6 mg/dL (8.6-10.3); Carbon Dioxide 26 mEq/L (23-29); Chloride 108 mEq/L (98-107); Glucose 83 mg/dL (70-105); Osmolality,Calculated 298 (280-300); Potassium 3.4 mEq/L (3.5-5.1); Sodium 143 mEq/L (136-145); eGFR For Non-African Americans > 60 (> 60)
--- NOTE | 2018-03-31 11:37 | Gastroenterology Consult Note ---
<Teja Quintana Ruddy - Last Filed: 03/31/18 11:54> Date of Encounter: 03/31/18 Time of Encounter: 10:20 - Assessment and plan (1) Right sided abdominal pain Current Visit: Yes Status: Acute Assessment and plan: Patient with focal tenderness in RUQ cartilage concerning for costochondritis vs shingles. Patient does have a rash on right side following dermatome which is suspicious for shingles. We will plan for EGD today to r/o esophagitis, gastritis, duodenitis, PUD, MW tear, or AVM. Keep patient NPO. (2) Chest pain Current Visit: Yes Status: Acute Assessment and plan: Cardiac echo and stress test completed. Troponins negative. Echocardiogram Limited Views 03/29/18 09:11 Impressions: LVEF 55%. Normal LV chamber size and systolic function. Basal sigmoid septum. Left Ventricular Wall Motion: Rest Echo Findings All wall segments showed normal motion. Findings: Study Quality * Technically adequate exam. ECG Findings * Sinus rhythm with BBB. Left Ventricle * LVEF 55%. * Basal sigmoid septum. * Normal LV chamber size and systolic function. Qualifiers: Chest pain type: unspecified Qualified Code(s): R07.9 - Chest pain, unspecified - Time Spent With Patient Total time spent is greater than 50% in coordination of care (as documented) at patient's floor/unit and/or counseling patient: GI History of Present Illness - Data of Consult Patient: new to practice Consult date: 03/31/18 Requesting Physician: Melissa Nova CNP - Consult Narrative Reason for consult: RUQ pain History of present illness: Ms. Cee is a 77 year old female with PMHx of [place] 2016 PCI stent to LAD, PE DVT 2012 on Xarelto, cholecystectomy 2018, HTN, COPD. Patient presented to PCP office to discuss her back pain and she began to experience sharp chest pain. EMS was called and she was brought to ED. Troponins were negative, cardiac echo completed, and stress test was completed this AM. We were consulted to evaluate her right sided pain. Patient states pain started in right flank and radiates to her RUQ area. CT A/P with no acute findings, RUQ US was unremarkable. She states this pain is worse in the morning. Procedures: Colonoscopy around [address] [facility]-per patient report (She is unsure of result). EGD 02/13/2001 Dr. Beasley: Mild chronic inflammation. NSAIDs: ASA Anticoagulation: Xarelto Past Med Surg Social Fam HX - Past Medical History Medical history: hyperlipidemia, hypertension, myocardial infarction, pulmonary embolus, other Additional medical history: blood clot. insonmia, hital hernia Psychiatric history: anxiety, depression - Past Surgical History Surgical History: other Additional surgical history: total lt knee. rt hip replacement. left knee, back sx. 2 cardiac stents - Social History Smoking Status: Never smoker Smokeless Tobacco Status: No Alcohol use: none Drug use: none - Family History Mother Living Status: Hx Family Cardiac Disorders: Yes - Gastrointestinal Gastrointestinal: Present: as per HPI - Constitutional Constitutional: as per HPI - EENT Eyes: as per HPI Ears: Present: as per HPI Nose, mouth and throat: Present: as per HPI - Cardiovascular Cardiovascular ROS: Present: as per HPI - Respiratory Respiratory IM: Present: as per HPI - Genitourinary Genitourinary: Absent: change in color, Urinary frequency - Neurological ROS Neurological GI: Present: as per HPI - Hematologic/Lymphatic Hematologic/Lymphatic pediatric: Present: as per HPI - Musculoskeletal Musculoskeletal ROS GI: Present: as per HPI - Integumentary Integumentary GI: Present: as per HPI - Psychiatric ROS Psychiatric GI: Present: as per HPI - Endocrine Endocrine IM: Present: as per HPI - Constitutional Vitals: Temp Pulse Resp BP Pulse Ox 98.0 F 61 14 115/74 94 03/31/18 03:33 03/31/18 03:33 03/31/18 03:33 03/31/18 03:33 03/31/18 03:33 General appearance: Present: cooperative, A&O X 3, no acute distress, answers questions appropriately - Head Head exam: Present: atraumatic, normocephalic - Eye Eye exam: Present: normal appearance, sclera anicteric - ENT ENT exam: Present: mucous membranes dry - Neck Neck exam general surgery: Present: normal inspection, trachea midline - Respiratory Respiratory exam: Present: decreased breath sounds, CTAB. Absent: rales, rhonchi - Cardiovascular Cardiovascular exam: Present: RRR, +S1, +S2 - GI/Abdominal GI/Abdominal exam: Present: soft, tenderness (Focal tenderness RUQ cartilage), no peritoneal signs. Absent: distended, firm, guarding - Rectal Rectal exam: Present: deferred - Extremities Exam Extremities exam: Present: warm - Neurological Exam Neurological exam: Present: no focal deficits - Psychiatric Psychiatric exam: Present: normal affect, normal mood - Skin Skin exam: Present: dry, intact, rash (Right side following dermatome), warm Results - Labs CBC & Chem 7: 03/31/18 09:31 03/31/18 09:31 Labs: Last Result Calcium 8.6 mg/dL (8.6-10.3) 03/31/18 09:31 Troponin I < 0.03 ng/mL (< 0.04) 03/28/18 05:47 Triglycerides 111 mg/dL (< 150) 03/28/18 00:14 Entire Visit Hgb 14.8 g/dL (11.5-15.4) 03/31/18 09:31 Hct 46.7 % (35.3-44.9) H 03/31/18 09:31 Total Bilirubin 0.6 mg/dL (0.3-1.0) 03/28/18 00:14 AST 38 Units/L (13-39) 03/28/18 00:14 ALT 29 Units/L (7-52) 03/28/18 00:14 Lipase 36 Units/L (11-82) 03/28/18 00:14 Consult Discharge Plan - Plan Referrals: Katia Cordoba CNP [Primary Care Provider] - 04/06/18 1:00 pm () <Fatuma Tan - Last Filed: 03/31/18 14:26> Date of Encounter: 03/31/18 - Time Spent With Patient Total time spent is greater than 50% in coordination of care (as documented) at patient's floor/unit and/or counseling patient: GI History of Present Illness - Data of Consult Requesting Physician: Melissa Nova CNP - Consult Narrative History of present illness: Ms. Cee is a 77 year old female - Constitutional Vitals: Temp Pulse Resp BP Pulse Ox 97.9 F 56 16 160/92 94 03/31/18 13:03 03/31/18 13:03 03/31/18 13:03 03/31/18 13:03 03/31/18 13:03 Results - Labs CBC & Chem 7: 03/31/18 09:31 03/31/18 09:31 Labs: Last Result Calcium 8.6 mg/dL (8.6-10.3) 03/31/18 09:31 Troponin I < 0.03 ng/mL (< 0.04) 03/28/18 05:47 Triglycerides 111 mg/dL (< 150) 03/28/18 00:14 Entire Visit Hgb 14.8 g/dL (11.5-15.4) 03/31/18 09:31 Hct 46.7 % (35.3-44.9) H 03/31/18 09:31 Total Bilirubin 0.6 mg/dL (0.3-1.0) 03/28/18 00:14 AST 38 Units/L (13-39) 03/28/18 00:14 ALT 29 Units/L (7-52) 03/28/18 00:14 Lipase 36 Units/L (11-82) 03/28/18 00:14 - Attending Attestation I have personally performed a face to face evaluation on this patient. I have reviewed and agree with the care plan. History and Exam by me shows: Patient seen complaining of pain in the right upper quadrant very focal on examination she does has shingles rash on the right side and also she has focal tenderness on palpation of the lower rib. R/o gastroduodenal causes for her right side abdominal pain. Rec: EGD
--- NOTE | 2018-03-31 12:29 | Anesthesia Evaluation PreOp ---
Date of Encounter: 03/31/18 Time of Encounter: 12:26 - Past History Planned Operation: EGD Cardiac History: HTN, Hyperlipidemia, Arrhythmia (pAfib), Cardiac Stent (x 2 in 2016, did recieve Xarelto today) Pulmonary History: COPD [employer] History: Other (anxiety depression) Other Medical History: Thyroid (hypo), GERD, Other (EGD today to r/o esophagitis, gastritis, duodenitis, PUD, MW tear, or AVM) Anesthesia History: No Prior Anesthetic Complications, Past Anesthesia : No Alcohol Use: none Drug use: none Medications and Allergies Levothyroxine Sodium [Tirosint] 88 mcg PO QAM 10/02/15 [History] ALPRAZolam [Xanax 1 MG Tablet] 1 mg PO HS 10/09/15 [History] Omeprazole [PriLOSEC] 40 mg PO DAILY 10/09/15 [History] B2/Vits A,C,E/Lut/Zeaxanth/Min [Icaps Tablet] 2 tab PO BID 07/21/17 [History] DiphenhydraMINE [Benadryl] 25 mg PO DAILY PRN 07/21/17 [History] Ferrous Sulfate [Iron] 325 mg PO DAILY 07/21/17 [History] Furosemide [Lasix] 20 mg PO DAILY 07/21/17 [History] Losartan [Cozaar] 25 mg PO DAILY 07/21/17 [History] Metoprolol XL (24 HR) Succ [Toprol Xl] 12.5 mg PO QAM 07/21/17 [History] Nitroglycerin [Nitrostat] 0.4 mg SL Q5MIN PRN 07/21/17 [History] Potassium Chloride 20 meq PO DAILY 07/21/17 [History] Rivaroxaban [Xarelto] 10 mg PO DAILY 07/21/17 [History] Rosuvastatin Calcium 20 mg PO HS 07/21/17 [History] Acetaminophen [Tylenol] 500 - 1,000 tab PO Q6HR PRN 03/27/18 [History] Aspirin 81 mg PO QPM 03/27/18 [History] Allergy/AdvReac Type Severity Reaction Status Date / Time adhesive tape Allergy Rash Verified 07/21/17 15:43 - Meds/Allergy Pre-op Review Medications Reviewed: Yes Allergies Reviewed: Yes Beta Blockers on Current Med List: Yes (metoprolol) If Beta Blockers taken, Date/Time (Last Dose taken): 0913 Anesthesia Results - Labs 03/31/18 09:31 03/31/18 09:31 - Imaging EKG: report reviewed (RBBB) Additional studies: 03/27/2018 Echo Impressions: LVEF 55%. Normal LV chamber size and systolic function. Basal sigmoid septum. Stress 03/2018 Impression: Small sized, moderate-severe intensity perfusion defect seen in the mid-distal portion of the inferior wall possibly representing ischemia. A small sized, mild intensity perfusion defect is observed during rest with normal wall motion suggesting artifact. Recommend clinical correlation. Pharmacologic stress ECG is negative for ischemia at level of heart rate achieved. No appreciable change from baseline ECG. Gated EF = 57%. Anesthesia Exam Vital Signs/O2 Sat/Glucose, Most Recent Temp Pulse Resp BP Pulse Ox 98.2 F 55 16 129/70 95 03/31/18 11:46 03/31/18 11:46 03/31/18 11:46 03/31/18 11:46 03/31/18 11:46 - HEENT Pupil (Motor): Pupils equal Mallampati: II Teeth: Poor dentition Oral Opening: Greater than 3 - [employer] LOC: Oriented [employer] Motor: Normal RUE, Normal LUE, Normal RLE, Normal LLE, Normal Face [employer] Sensory: Normal: RUE, LUE, RLE, LLE, Face - Cardiac Rhythm: Regular Murmur: None - Pulmonary Breath Sounds: bilateral Clear Respiratory Effort: Symmetrical Anesthesia Assess/Plan ASA Score: 3 Level of consciousness: Cooperative, Oriented Anesthetic Plan: MAC Monitoring Plan: Standard Monitors Recovery Plan: PACU
[2018-03-31] MEDS ORDERED: Tetracaine/Benzocaine/Butamben 1 SPRAY AEROSOL MM ONE (13:56)
[2018-03-31] MEDS ORDERED: Simethicone 40 MG/0.6 ML MLS IR ONE (13:56)
[2018-03-31] MEDS: 0.9 % Sodium Chloride 500 ML IVC SCH (13:57)
--- NOTE | 2018-03-31 14:15 | Anesthesia Evaluation Post Op ---
Date of Encounter: 03/31/18 Time of Encounter: 14:14 - Vital Signs Vital Signs: Vital Signs/O2 Sat/Glucose, Most Recent Temp Pulse Resp BP Pulse Ox 97.9 F 56 16 160/92 94 03/31/18 13:03 03/31/18 13:03 03/31/18 13:03 03/31/18 13:03 03/31/18 13:03 - Lungs Lungs: Clear Ascult./Percussion - Airway Airway: Non-obstructed - Cardiovascular Regular Rate - Mental Status Mental Status: Alert & Oriented, Answers Appropriately - Pain Pain Scale: 0 - Nausea Vomiting Nausea Vomiting: Not Present - Hydration Hydration: NPO - Discharge PostOp Status: Transfer Patient to floor
--- NOTE | 2018-03-31 15:41 | Cardiology Consult Note ---
<Mango Joyner R - Last Filed: 03/31/18 15:50> Date of Encounter: 03/31/18 Time of Encounter: 15:39 Assessment and Plan (1) Abnormal stress test Current Visit: Yes Status: Acute Stress test revealed small sized, moderate-severe intensity perfusion defect seen in the mid-distal portion of the inferior wall possibly representing ischemia. A small sized, mild intensity perfusion defect is observed during rest with normal wall motion suggesting artifact. Gated EF = 57%. Pt presented with one week of intermittent sharp pain that radiated from mid back to right chest, associated shortness of breath and nausea. Relief with nitro paste, no recurrence. Troponins negative. EGD today large hiatal hernia, gastitis biopsied. TTE EF 55%. Hx CAD s/p PCI. Given above, recommend LHC. R/B/A discussed. Pt agreeable, but would like to discuss with her children first. NPO after midnight. Will re-evaluate in AM. Hold Xarelto in anticipation for LHC. Continue to follow. (2) CAD (coronary artery disease) Current Visit: No Status: Acute Hx PCI in 2015. ASA, Statin, BB. Qualifiers: Coronary Disease-Associated Artery/Lesion type: [place] artery [place] vs. transplanted heart: [place] heart Associated angina: with unstable angina Qualified Code(s): I25.110 - Atherosclerotic heart disease of [place] coronary artery with unstable angina pectoris Discussion w patient/family: The assessment and plan as outlined above was discussed with the patient and/or family members who expressed understanding and agreement. All questions were answered. Thank you for involving us in the care of your patient. Please call with any questions. I will discuss and review with and make changes as necessary. History of Present Illness Consult date: 03/31/18 Consult reason: abnormal stress Chief complaint: chest pain History of present illness: Ms. Cee is a 77 year old female with PMH of [place] in 2016 CAD/PCI to LAD, hx PE/DVT 2012 on Xarelto, thyroid disease, hypertension, COPD, skin cancer that presented with one week of intermittent sharp pain that radiated from mid back to right chest, associated shortness of breath and nausea. Relief with nitro paste, no recurrence. Troponins negative. Underwent stress test this AM-- revealed small sized, moderate-severe intensity perfusion defect seen in the mid-distal portion of the inferior wall possibly representing ischemia. A small sized, mild intensity perfusion defect is observed during rest with normal wall motion suggesting artifact. Gated EF = 57%. Also underwent EGD today--large hiatal hernia, gastritis biopsied. Cardiology consulted for further recs. Prior CV testing: [facility] 11/08/15: Successful PTCA/Drug-Eluting Stent placement in the mid LAD. Severe 95% mid LAD disease. There is severe LV Dysfunction EF 35%. Anterior wall with severe hypokinesis. Past Med Surg Social Fam HX - Past Medical History Medical history: coronary artery disease, hyperlipidemia, hypertension, myocardial infarction, pulmonary embolus, other Additional medical history: blood clot. insonmia, hital hernia Psychiatric history: anxiety, depression - Past Surgical History Surgical History: angioplasty/stent, other Additional surgical history: total lt knee. rt hip replacement. left knee, back sx. 2 cardiac stents - Social History Smoking Status: Never smoker Smokeless Tobacco Status: No Alcohol use: none Drug use: none - Family History Mother Living Status: Hx Family Cardiac Disorders: Yes Medications and Allergies Levothyroxine Sodium [Tirosint] 88 mcg PO QAM 10/02/15 [History] ALPRAZolam [Xanax 1 MG Tablet] 1 mg PO HS 10/09/15 [History] Omeprazole [PriLOSEC] 40 mg PO DAILY 10/09/15 [History] B2/Vits A,C,E/Lut/Zeaxanth/Min [Icaps Tablet] 2 tab PO BID 07/21/17 [History] DiphenhydraMINE [Benadryl] 25 mg PO DAILY PRN 07/21/17 [History] Ferrous Sulfate [Iron] 325 mg PO DAILY 07/21/17 [History] Furosemide [Lasix] 20 mg PO DAILY 07/21/17 [History] Losartan [Cozaar] 25 mg PO DAILY 07/21/17 [History] Metoprolol XL (24 HR) Succ [Toprol Xl] 12.5 mg PO QAM 07/21/17 [History] Nitroglycerin [Nitrostat] 0.4 mg SL Q5MIN PRN 07/21/17 [History] Potassium Chloride 20 meq PO DAILY 07/21/17 [History] Rivaroxaban [Xarelto] 10 mg PO DAILY 07/21/17 [History] Rosuvastatin Calcium 20 mg PO HS 07/21/17 [History] Acetaminophen [Tylenol] 500 - 1,000 tab PO Q6HR PRN 03/27/18 [History] Aspirin 81 mg PO QPM 03/27/18 [History] Allergy/AdvReac Type Severity Reaction Status Date / Time adhesive tape Allergy Rash Verified 07/21/17 15:43 All Systems Review: The remainder of the systems were reviewed and are negative - Cardiovascular Cardiovascular: as per HPI, chest pain at rest, chest pain with exertion, dyspnea at rest, dyspnea on exertion - Gastrointestinal Gastrointestinal: abdominal pain, nausea Physical Examination Vital Signs, Last 4 Hours Temp Pulse Resp BP Pulse Ox 03/31/18 15:00 98.2 F 55 16 151/81 95 03/31/18 14:25 97.4 F L 62 16 147/75 96 03/31/18 13:03 97.9 F 56 16 160/92 94 03/31/18 11:46 98.2 F 55 16 129/70 95 Vital Signs Temp Pulse Resp BP Pulse Ox 03/31/18 15:00 98.2 F 55 16 151/81 95 03/31/18 14:25 97.4 F L 62 16 147/75 96 03/31/18 13:03 97.9 F 56 16 160/92 94 03/31/18 11:46 98.2 F 55 16 129/70 95 03/31/18 03:33 98.0 F 61 14 115/74 94 03/30/18 23:15 98.2 F 75 16 148/77 96 03/30/18 20:15 93 03/30/18 18:53 98.6 F 78 16 121/66 94 03/30/18 16:28 97.9 F 67 18 122/74 93 Intake and Output 03/30/18 03/31/18 03/31/18 23:59 07:59 15:59 Intake Total 600 / 600 Balance 600 / 600 Intake: Oral 600 / 600 Other: Weight 78.5 kg Patient Weight 03/31/18 23:59 Weight 78.5 kg General: Conversant, No Apparent Distress HEENT: Atraumatic, Normocephaly, Mucus Membranes Moist Neck: No JVD, Normal carotid pulses Cardiac: Reg Rate and Rhythm, Normal S1 and S2, No Murmur Lungs: Normal Breath Sounds, No Wheeze, Rales, Rhonchi Neuro: Alert and responsive, No focal deficits noted Abdomen: Soft, Non-Tender Skin: No rashes noted on visualized skin Musculoskeletal: No Chest Wall Tenderness Extremities: No Clubbing, No Cyanosis, No Edema, Normal Pulses Results 03/31/18 09:31 03/31/18 09:31 Lab Results 03/31/18 03/31/18 09:31 09:31 WBC 5.8 Hgb 14.8 Hct 46.7 H Plt Count 210 Sodium 143 Potassium 3.4 L Chloride 108 H Carbon Dioxide 26 BUN 22 Creatinine 0.86 Glucose 83 Calcium 8.6 Short CBC 03/31/18 Range/Units 09:31 WBC 5.8 (4.3-11.1) K/mcL Hgb 14.8 (11.5-15.4) g/dL Hct 46.7 H (35.3-44.9) % Plt Count 210 (140-400) K/mcL Neutrophils # 3.2 (1.6-8.9) K/mcL BMP 03/31/18 Range/Units 09:31 Sodium 143 (136-145) mEq/L Potassium 3.4 L (3.5-5.1) mEq/L Chloride 108 H (98-107) mEq/L Carbon Dioxide 26 (23-29) mEq/L BUN 22 (8-23) mg/dL Creatinine 0.86 (0.60-1.20) mg/dL Glucose 83 (70-105) mg/dL Calcium 8.6 (8.6-10.3) mg/dL Active Medications Acetaminophen (Tylenol) 650 mg PO Q6HR PRN PRN Reason: Mild Pain/Fever Stop: 09/26/18 17:20 Last Admin: 03/29/18 01:18 Dose: 650 mg Hydrocodone Bitart/Acetaminophen ([place] 5-325 Mg) 1 tab PO Q6HR PRN PRN Reason: Moderate Pain Stop: 09/26/18 17:20 Last Admin: 03/31/18 06:05 Dose: 1 tab Al Hydrox/Mg Hydrox/Simethicone (Maalox) 15 ml PO Q6HR PRN PRN Reason: Dyspepsia Stop: 09/26/18 17:20 Alprazolam (Xanax) 1 mg PO HS ROMA; Protocol Stop: 09/26/18 22:01 Last Admin: 03/30/18 20:22 Dose: 1 mg Aspirin (Aspirin) 81 mg PO DAILY [facility] Stop: 09/27/18 09:01 Last Admin: 03/31/18 09:12 Dose: 81 mg Diphenhydramine HCl (Benadryl) 25 mg PO BID [facility] Stop: 09/27/18 09:01 Last Admin: 03/31/18 09:13 Dose: 25 mg Diphenhydramine HCl (Benadryl) 1 appl TP QID PRN PRN Reason: Itching Stop: 09/27/18 09:19 Last Admin: 03/30/18 01:42 Dose: 1 appl Ferrous Sulfate (Ferrous Sulfate) 325 mg PO DAILY [facility] Stop: 09/27/18 09:01 Last Admin: 03/31/18 09:13 Dose: 325 mg Furosemide (Lasix) 20 mg PO DAILY [facility] Stop: 09/27/18 09:01 Last Admin: 03/31/18 09:13 Dose: 20 mg Gabapentin (Neurontin) 100 mg PO TID [facility] Stop: 09/28/18 21:01 Last Admin: 03/31/18 09:12 Dose: 100 mg Sodium Chloride (0.9 % Sodium Chloride) 500 mls @ 50 mls/hr IVC .Q10H [facility] Stop: 09/30/18 14:01 Last Admin: 03/31/18 13:57 Dose: 50 mls/hr Levothyroxine Sodium (Synthroid) 88 mcg PO 0630 [facility] Stop: 09/27/18 06:31 Last Admin: 03/31/18 06:05 Dose: 88 mcg Losartan Potassium (Cozaar) 25 mg PO DAILY [facility]; Protocol Stop: 09/27/18 09:01 Last Admin: 03/31/18 09:13 Dose: 25 mg Metoprolol Succinate (Toprol Xl) 12.5 mg PO DAILY [facility] Stop: 09/27/18 09:01 Last Admin: 03/31/18 09:13 Dose: 12.5 mg Naloxone HCl (Narcan) 0.4 mg IVP Q2MIN PRN PRN Reason: SEE COMMENTS Stop: 09/26/18 17:20 Nitroglycerin (Nitroglycerin) 0.4 mg SL Q5MIN PRN PRN Reason: Chest Pain Stop: 09/26/18 17:22 Nystatin (Nystop) 1 appl TP BID [facility] Stop: 09/30/18 09:16 Last Admin: 03/31/18 09:23 Dose: 1 appl Omeprazole (Prilosec) 40 mg PO HS [facility]; Protocol Stop: 09/26/18 22:01 Last Admin: 03/30/18 20:21 Dose: 40 mg Ondansetron HCl (Zofran Odt) 4 mg SL Q8HR PRN PRN Reason: Nausea And Vomiting Stop: 09/26/18 17:20 Oxycodone HCl (Roxicodone) 10 mg PO Q6HR PRN PRN Reason: Severe Pain Stop: 09/28/18 10:01 Last Admin: 03/31/18 09:13 Dose: 10 mg Rivaroxaban (Xarelto) 10 mg PO DAILY [facility] Stop: 09/27/18 09:01 Last Admin: 03/31/18 09:13 Dose: 10 mg Rosuvastatin Calcium (Crestor) 20 mg PO HS [facility] Stop: 09/26/18 22:01 Last Admin: 03/30/18 20:22 Dose: 20 mg Trolamine Salicylate (Aspercreme 10%) 1 appl TP TID PRN PRN Reason: SEE COMMENTS Stop: 09/27/18 17:11 - Imaging and Cardiology Stress Test: report reviewed Echo: report reviewed - EKG Interpretation EKG results cardiology: personally reviewed Consult Discharge Plan - Plan Referrals: Katia Cordoba, [employer] [Primary Care Provider] - 04/06/18 1:00 pm () <Sonya Shen - Last Filed: 03/31/18 18:18> Date of Encounter: 03/31/18 - Attending Attestation Patient was seen and evaluated independently by me. Findings, assessment and plan were discussed at length with patient, questions answered. Agree with nurse practitioner's/resident's documentation. Addition as follows, 77 yoCF ho CAD ESAU-LAD 2015, DVT/PE 2012 on xarelto, HTN, hypothyroidism, COPD, cholecystectomy. P/w 4 episodes of severe chest pressure relieved by NTG patch after several days of sharp RUQ abd pain. Abd U/S, V/Q non-revealing, EGD hiatal hernia, gastritis?. Neg trop, ECG old RBBB, LAD NS STT. TTE LVEF 55%. Pharm SPECT suggests mid-basal inferior/inferolateral ischemia SDS=5-6 images reviewed by me independently). VSS, CTA, RR, no LE edema. Cr and Hb nl, no bleeding diathesis A: Unstable angina, on ASA xarelto, currently cp free [place] inferior ischemia on SPECT CAD s/p LAD ESAU Ho DVT/PE P: LHC am, npo after midnight hold xarelto today c/w ASA, statin, BB, NTG prn Sonya Shen MD, PhD Assessment and Plan Discussion w patient/family: The assessment and plan as outlined above was discussed with the patient and/or family members who expressed understanding and agreement. All questions were answered. Thank you for involving us in the care of your patient. Please call with any questions. History of Present Illness History of present illness: Ms. Cee is a 77 year old female All Systems Review: The remainder of the systems were reviewed and are negative Physical Examination Vital Signs, Last 4 Hours Temp Pulse Resp BP Pulse Ox 03/31/18 15:00 98.2 F 55 16 151/81 95 03/31/18 14:25 97.4 F L 62 16 147/75 96 Results 03/31/18 09:31 03/31/18 09:31 Lab Results 03/31/18 03/31/18 09:31 09:31 WBC 5.8 Hgb 14.8 Hct 46.7 H Plt Count 210 Sodium 143 Potassium 3.4 L Chloride 108 H Carbon Dioxide 26 BUN 22 Creatinine 0.86 Glucose 83 Calcium 8.6
[2018-03-31] MEDS: ALPRAZolam 1 MG TABLET PO SCH (21:20)
--- NOTE | 2018-04-01 00:42 | Electrocardiograph Report ---
[address] [place], [place] [address] Test Date: 2018-03-28 Pat Name: Zaina Cee Department: 113 Room: 3B14 Gender: F [employer] Fin[employer]: : 1940 Requested By: Melissa Nova Order Number: [id number] Reading MD: Sherri Rosenberg Measurements Intervals [place] Rate: 56 P: 29 IL: 243 QRS: -74 QRSD: 145 T: -23 QT: 495 QTc: 486 Interpretive Statements SINUS BRADYCARDIA WITH FIRST DEGREE AV BLOCK MARKED LEFT AXIS DEVIATION RIGHT BUNDLE BRANCH BLOCK MODERATE T-WAVE ABNORMALITY, CONSIDER LATERAL ISCHEMIA Electronically Signed On 04-01-2018 0:41:24 EST by Sherri Rosenberg
[2018-04-01] MEDS: 0.9 % Sodium Chloride 500 ML IVC SCH (03:47)
[2018-04-01 05:35] LABS: Basophils # 0.1 K/mcL (0.0-0.2); Basophils % 0.9 %; Eosinophils # 0.3 K/mcL (0.0-0.6); Eosinophils % 5.4 %; Hematocrit 42.4 % (35.3-44.9); Hemoglobin 13.4 g/dL (11.5-15.4); Immature Granulocytes % 0.2 % (0-4); Lymphocytes # 2.2 K/mcL (0.6-4.6); Lymphocytes % 40.3 %; Mean Corpuscular HGB Conc 31.6 g/dL (31.6-35.5); Mean Corpuscular Hemoglobin 28.7 pg (28.0-33.3); Mean Corpuscular Volume 90.8 fL (83.0-100.0); Mean Platelet Volume 10.3 fL (9.4-12.4); Monocytes # 0.4 K/mcL (0.0-1.3); Monocytes % 8.2 %; Neutrophils # 2.4 K/mcL (1.6-8.9); Platelet Count 211 K/mcL (140-400); Red Blood Count 4.67 M/mcL (3.82-4.97); Red Cell Distribution Width 14.4 % (11.5-14.5)
[2018-04-01 06:03] LABS: BUN/Creatinine Ratio 21 (6-26); Blood Urea Nitrogen 20 mg/dL (8-23); Calcium 8.6 mg/dL (8.6-10.3); Carbon Dioxide 27 mEq/L (23-29); Chloride 108 mEq/L (98-107); Glucose 95 mg/dL (70-105); Osmolality,Calculated 296 (280-300); Sodium 142 mEq/L (136-145); eGFR For Non-African Americans 58 (> 60)
[2018-04-01] MEDS: Gabapentin 100 MG CAPSULE PO SCH ×3 (07:59→21:55)
[2018-04-01] MEDS: *HR* HYDROcodone/Acet 5/325 mg TABLET PO PRN ×2 (07:59→17:13)
[2018-04-01] MEDS: Metoprolol XL (24 HR) Succ 25 MG TAB.ER.24H PO SCH (08:00)
[2018-04-01] MEDS: Aspirin 81 MG TAB.CHEW PO SCH (08:00)
[2018-04-01] MEDS: Furosemide 20 MG TABLET PO SCH (08:00)
[2018-04-01] MEDS: Nystatin POWDER 30 GM BOTTLE TP SCH ×2 (08:05→21:55)
--- NOTE | 2018-04-01 10:59 | Event Note ---
Date of Encounter: 04/01/18 Time of Encounter: 10:56 - Cardiology Event Note Discussed with pt, agrees to [facility] today for abnormal stress test. R/B/A discussed. On Xarelto 10mg daily, last dose 03/[address] Stark. Okay to proceed today. Continue to follow.
--- NOTE | 2018-04-01 11:13 | Internal Med Progress Note ---
Hospitalist Progress Note - Encounter Date of Encounter: 04/01/18 Time of Encounter: 11:10 - Subjective Interval History: Pt resting. She has no chest pain currently. Having back pain radiating to the front of abdomen. Several square shaped skin rashes noted on the chest and abdomen wall. No sob, palpitation, or syncope. - Exam Vitals: Temp Pulse Resp BP Pulse Ox 98.3 F 75 16 126/75 92 04/01/18 07:24 04/01/18 07:24 04/01/18 07:24 04/01/18 07:24 04/01/18 07:24 Exam: Skin: Has red raised welts on chest and upper abdomen Eyes: Sclera is white. There is no discharge from eyes. ENMT: Oral/pharyngeal mucosa is normal in appearance. There is no discharge from nose or ears. Respiratory: Normal breath sounds with no crackles and wheezes bilaterally. CV: Heart is regular with no gallop or murmur. GI: Abdomen is flat and soft with no palpable mass or visceromegaly.-Right upper quadrant tenderness : There is right sided flank tenderness radiating to right upper quadrant Neuro exam: He has good strength in upper and lower extremities. He has normal eye movements. Psychiatric: He has normal affect. His thought process is appropriate to the si tuation. - Assessment and Plan (1) CAD (coronary artery disease) Current Visit: No Status: Acute Assessment and Plan: [place] with Stent to LAD 2015, on Aspirin and statin beta felicia. Abnormal stress test, echo unremarkable. cardiology following, [facility] in am. Hold Xarelto for now. (2) Hypothyroidism Current Visit: No Status: Acute Assessment and Plan: TSH normal Continue with Synthroid (3) Chest pain Current Visit: Yes Status: Acute Assessment and Plan: 03/31 Currently denies any chest pain Troponins are negative EKG with no ST abnormalities Cardiac echo Abnormal cardiac stress test revealed small sized moderate to severe intensity perfusion defects seen in the mid distal portion of the inferior wall possibly representing ischemia. A small sized mild intensity perfusion defect observed during rest with normal wall motion suggesting artifact gait EF is 57% Evaluated by cardiology recommending possible left heart catheter. Patient will be nothing by mouth after midnight and Xarelto will be held Impression All LV mcclure not well visualized, LVEF grossly mild reduction Basal sigmoid septum Mild left ventricular diastolic dysfunction Normal right ventricular structure and function Mildly dilated left atrium Mild tricuspid regurgitation No pulmonary hypertension Recommend limited echo with Definity for LVEF and wall motion TSH normal / Abnormal stress test. LHC in am. (4) History of pulmonary embolism Current Visit: Yes Status: Acute Assessment and Plan: Patient has a history of pulmonary embolism -VQ scan low probability for pulmonary embolism Holding Xarelto for possible left heart catheter in the a.m. (5) CHF (congestive heart failure) Current Visit: No Status: Chronic Assessment and Plan: Per history patient states she has possible CHF currently on Lasix Continue with Lasix Continuous cardiac monitoring Does not appear to be fluid overloaded at this time Cardiac echo EF 55% Normal LV chamber size and systolic function (6) DVT prophylaxis Current Visit: Yes Status: Acute Assessment and Plan: On Xarelto, oh hold for LHC in am. (7) Right sided abdominal pain Current Visit: Yes Status: Acute Assessment and Plan: Patient complains of right-sided flank pain that radiates to right upper quadrant CT of abdomen IMPRESSION: 1. No acute findings within the abdomen or pelvis. Extensive colonic diverticulosis with no acute features. The appendix is unremarkable. No evidence of obstructive uropathy. 2. Previous cholecystectomy. Increased intrahepatic and extrahepatic biliary dilatation, likely physiologic in the post cholecystectomy state. 3. Stable moderate hiatal hernia. Gallbladder ultrasound Limited examination as noted. Prior cholecystectomy. Otherwise unremarkable exam. GI was consulted patient underwent EGD- large hiatal hernia, gastritis. Increase Prilosec to BID. (8) Allergic dermatitis Current Visit: Yes Status: Acute Assessment and Plan: patient had reaction to EKG pads has several rashes, given Benadryl as well as topical Benadryl and hydrocortisone - Time Spent with Patient Total time spent is greater than 50% in coordination of care (as documented) at patient's floor/unit and/or counseling patient: Greater than 35 minutes Plan of Care Discussed with: patient Internal Medicine: Result - Labs CBC & Chem 7: 04/01/18 04:20 04/01/18 04:20 Labs: Short CBC 04/01/18 Range/Units 04:20 WBC 5.4 (4.3-11.1) K/mcL Hgb 13.4 (11.5-15.4) g/dL Hct 42.4 (35.3-44.9) % Plt Count 211 (140-400) K/mcL Neutrophils # 2.4 (1.6-8.9) K/mcL BMP 04/01/18 04:20 Sodium 142 Potassium 4.0 Chloride 108 H Carbon Dioxide 27 BUN 20 Creatinine 0.94 Glucose 95 Calcium 8.6 Consult Discharge Plan - Plan Referrals: Katia Cordoba CNP [Primary Care Provider] - 04/06/18 1:00 pm () (1) CAD (coronary artery disease) Qualifiers: Coronary Disease-Associated Artery/Lesion type: [place] artery [place] vs. transplanted heart: [place] heart Associated angina: with unstable angina Qualified Code(s): I25.110 - Atherosclerotic heart disease of [place] coronary artery with unstable angina pectoris (2) Hypothyroidism Qualifiers: Hypothyroidism type: acquired Qualified Code(s): E03.9 - Hypothyroidism, unspecified (3) Chest pain Qualifiers: Chest pain type: unspecified Qualified Code(s): R07.9 - Chest pain, unspecified (5) CHF (congestive heart failure) Qualifiers: Heart failure type: unspecified Heart failure chronicity: unspecified Qualified Code(s): I50.9 - Heart failure, unspecified
[2018-04-01] MEDS ORDERED: 0.9 % Sodium Chloride 2,000 ML ONE (13:56)
[2018-04-01] MEDS ORDERED: Nitroglycerin 1,000 MCG/10 ML VIAL IV ONE (13:56)
[2018-04-01] MEDS ORDERED: ISOVUE-370 200 ML INFUS..BTL ONE (13:56)
[2018-04-01] MEDS ORDERED: *HR* Heparin 10,000 UNIT/10 ML VIAL ONE (13:56)
[2018-04-01] MEDS ORDERED: Heparin 1,000 UNITS/500 mL 500 ML ONE (13:56)
[2018-04-01] MEDS ORDERED: *HR* Midazolam HCl 2 MG/2 ML VIAL ONE (14:56)
[2018-04-01] MEDS ORDERED: *HR* FentaNYL (PF) 100 MCG/2 ML VIAL ONE (14:56)
--- NOTE | 2018-04-01 15:06 | Pre-Sedation Evaluation ---
Pre-sedation evaluation - Pre-sedation checklist Date of procedure: 04/01/18 Procedure: C Recent Vitals: Last Vital Signs Temp 98.2 F 04/01/18 11:15 Pulse 65 04/01/18 11:15 Resp 16 04/01/18 11:15 BP 129/67 04/01/18 11:15 Pulse Ox 99 04/01/18 11:15 H&P (including ROS) documented in medical record: Yes Previous reaction to sedatives/anesthetics: Yes; explain in comment Dietary Status: NPO after Midnight ASA Classification *see protocol: CLASS II-Mild systemic disease Cardiac Registry (Cardio Only) - Functional Capacity Functional Capacity: >=4 METS with symptoms - Clincal Frailty Scale Clinical Frailty Scale: Managing Well
--- NOTE | 2018-04-01 15:43 | Event Note ---
Date of Encounter: 04/01/18 Time of Encounter: 15:40 - Cardiology Event Note [facility] completed--40-50% pLAD lesion, FFR negative. No intervention. Continue ASA, Statin, BB, ARB. Cardiology signing off. Reconsult PRN. Will coordinate outpt follow-up in 3-4 weeks. Will resume home Xarelto 10mg daily.
--- NOTE | 2018-04-01 16:07 | Invasive Diagnostic Lab Proc ---
Name: Zaina Cee Date of Study: 04/01/2018 Date: 1940 Ht: 64.2in Medical Record#: [id number] Age: 77 Wt: 170.86lb Gender: Female BSA: 1.83 Order #: [id number] BMI: 29.17 Physicians Procedure Physician: Vahid Souza MD Referring MD: Referring MD: Staff Name Position Time In Latricia Salas RT (R) Scrub 02:45 PM Roseline Panda RN Change Management Facilitator 02:46 PM Ruma Locke RN Monitor 02:46 PM Ruma Locke RN Monitor 02:52 PM Roseline Panda RN Change Management Facilitator 02:52 PM Latircia Salas RT (R) Scrub 02:52 PM Indications Indication Unstable Angina Procedures Performed Procedure L HRT ARTERY/VENTRICLE ANGIO IV Doppler BLD Flow 1st Vessel Pre-Procedure Checklist Informed consent is complete signed and on chart. H&P is on chart. ID band is on and ID verified with patient. Patient NPO for procedure The procedure was described for the patient and questions were answered. Blood Pressure: 129/67 ECG is on chart. Rhythm: Sinus Bradycardia Plan of Care Patient will tolerate the procedure without complications. Adequate level of comfort will be maintained. Hemodynamics will remain stable Patient will recover from procedure without complications. Respiratory function will be maintained. Cardiac rhythm will remain stable. Patient temperature will be maintained. Patient and/or family have verbalized understanding of the procedure. Patient Education Chief Complaint/Reason for Test: Cardiac Cath Developmental Category: Geriatric (65+ years) Developmentally Appropriate for Age: Yes Learning Barriers: None Education Needs: Procedure Education Method: Verbal Information Taught: Cardiac Cath Educational Evaluation: Able to repeat information Intravenous Access Time IV Size Location DC'd Fluid/Drip Rate Units RN 01:22 PM 20g 1 1/" Patent On Arrival Lt Antecubital 0.9NaCl 25 ml/hr Roseline Panda RN Allergies adhesive tape Tape, Adhesive PERCOCET Vital Signs Time BP (mmHg) HR (bpm) O2 Sat. RR (bpm) LOC 01:22 PM 129 / 67 65 99 % 16 5 = Fully awake and oriented or at pre-proc level 02:52 PM / % 5 = Fully awake and oriented or at pre-proc level 02:52 PM / % 4 = Oriented but drowsy 03:17 PM / % 4 = Oriented but drowsy 02:56 PM 168 / 86 59 95 % 14 03:00 PM 146 / 74 56 97 % 22 03:05 PM 132 / 63 53 94 % 15 03:11 PM 148 / 67 59 96 % 20 03:15 PM 147 / 70 61 96 % 19 03:20 PM 149 / 68 60 96 % 15 03:25 PM 144 / 76 62 95 % 15 03:30 PM 156 / 66 60 95 % 19 03:35 PM 153 / 75 60 96 % 11 Procedural Medications Time Medication Dose Units Method Given By 02:56 PM Versed 1 mg Intravenous Roseline Panda RN 02:56 PM Fentanyl 50 mcg Intravenous Roseline Panda RN 03:10 PM Lidocaine 2% 18 ml Subcutaneous Vahid Souza MD 03:23 PM Heparin 3000 units Intra Arterial Anahy Souza MD 03:26 PM Adenosine 647 ml/hr Intravenous Roseline Panda RN ASA Classification: CLASS II- Mild systemic disease (i.e. well-controlled diabetes, hypertension, asthma, cigarette smoking) Mauricio Score Preprocedure Postprocedure Activity 2- Moves 4 extremities sustained head lift Activity 2- Moves 4 extremities sustained head lift Circulation 2- SBP +/= 20 points of pre-anesthetic level Circulation 2- SBP +/= 20 points of pre-anesthetic level Consciousness 2- Awake and alert oriented x 3 Consciousness 2- Awake and alert oriented x 3 O2 Saturation 2- Able to maintain O2 satruation of 92% on room air O2 Saturation 2- Able to maintain O2 satruation of 92% on room air Respiratory 2- Able to deep breathe and cough well Respiratory 2- Able to deep breathe and cough well Total Score 10 Total Score 10 Contrast Agent: Isovue Diagnostic Contrast: 92 ml Total Contrast: 92 ml Fluoro Dose: 3833 mGy Procedure Log Time Note Enter By 01:54 PM CathStat 02:46 PM Latricia Salas RT (R) Position: Scrub Time in: 14:45 danny 02:46 PM Roseline Panda RN Position: Change Management Facilitator Time in: 14:46 danny 02:46 PM Ruma Locke RN Position: Monitor Time in: 14:46 danny 02:46 PM Patient charges- Angio tray pack, Navilyst 3mm J, Pulse Oximetry and ACIST tubing and transducer [email or web address] 02:47 PM Pt arrived to chemical laboratory scientist 2 at 14:47 [email or web address] 02:47 PM Case Delayed No [email or web address] 02:52 PM Physician arrived 14:51 scoates 02:52 PM Meet and greet completed scoates 02:52 PM Sign in performed according to hospital policy. Informed consent was obtained. scoates 02:52 PM Sign in performed according to hospital policy. Informed consent was obtained. scoates : PM Time: 14:52 Patient comfortable and pain free: Yes scoates 02:52 PM Time: 14:52LOC: 5 = Fully awake and oriented or at pre-proc level scoates 02:52 PM Procedure start 14:52 scoates 02:53 PM Hair removed from procedure site in procedure lab using clippers. Bilateral groin prepped with Chloraprep by Roseline Panda RN, then patient was draped. Skin intact. scoates 02:55 PM Vitals capture started with the following parameters, Patient=Adult, Interval=5 min, Initial Ddrhuodu=515 mmHg, Deflation Rate=5 mmHg, Cuff placed on Right Arm 02:56 PM HR=59 bpm, ASCM=385/86 mmhg, SpO2=95.0 %, Resp=14 B/min, Comment=sb 02:56 PM Time: 14:56 Versed 1 mg Intravenous Given by Roseline Panda RN scoates 02:56 PM Time: 14:56 Fentanyl 50 mcg Intravenous Given by Roseline Panda RN scoates 02:58 PM Reference ECG taken 02:58 PM Recorded ECG: HR=53 Condition=Condition 1 03:00 PM ASA Class CLASS II- Mild systemic disease (i.e. well-controlled diabetes, hypertension, asthma, cigarette smoking) scoates 03:00 PM HR=56 bpm, EVHO=147/74 mmhg, SpO2=97.0 %, Resp=22 B/min, Comment=sb 03:05 PM HR=53 bpm, RBLU=666/63 mmhg, SpO2=94.0 %, Resp=15 B/min, Comment=sb 03:09 PM Time out was performed according to hospital policy. Conscious sedation and anesthesia was achieved (see medication log with in this report above) scoates 03:10 PM Time: 15:10 18 ml Lidocaine 2% to right groin Subcutaneous Given by Vahid Souza MD scoates 03:11 PM Micro-Introducer Kit utilized for sheath placement scoates 03:11 PM Access obtained by percutaneous puncture. 6Fr 11cm Cordis Meagan sheath placed in right Femoral artery. [id number] scoates 03:11 PM HR=59 bpm, LGCQ=025/67 mmhg, SpO2=96.0 %, Resp=20 B/min, Comment=sb 03:12 PM Pressure channel 1 zeroed. 03:12 PM 5Fr FR 4 catheter inserted over the wire DNC scoates 03:12 PM Recorded Pressure: Ao, HR=58, Condition=Condition 1 (Aorta) Ao 153/76/107 03:12 PM RCA angiography performed in multiple views. scoates 03:13 PM Catheter removed scoates 03:13 PM 5Fr FL 4 catheter inserted over the wire DNC scoates 03:14 PM Recorded Pressure: Ao, HR=60, Condition=Condition 1 (Aorta) Ao 138/75/101 03:15 PM LCA angiography performed in multiple views. scoates 03:15 PM HR=61 bpm, BTPB=752/70 mmhg, SpO2=96.0 %, Resp=19 B/min, Comment=sb 03:17 PM Coronary Dominance: right scoates 03:17 PM Time: 14:52 Patient comfortable and pain free: Yes scoates 03:17 PM Time: 14:52LOC: 4 = Oriented but drowsy scoates 03:18 PM Recorded Pressure: LV, HR=63, Condition=Condition 1 (Left Ventricle) LV 153/11/18 03:18 PM Recorded Pressure: LV, Ao, HR=60, Condition=Condition 1 (Left Ventricle) LV 152/11/20, (Aorta) Ao 169/43/102 03:19 PM Catheter removed scoates 03:19 PM 5Fr Pigtail catheter inserted over the wire DNC scoates 03:20 PM Catheter crossed the aortic valve and was selectively placed in the left ventricle. Pressures recorded on pullback for left heart catheterization. scoates 03:20 PM Catheter removed scoates 03:20 PM HR=60 bpm, KCYC=563/68 mmhg, SpO2=96.0 %, Resp=15 B/min, Comment=sb 03:21 PM Lesion found in Proximal LAD. Pre Stenosis: 50 Pre LISSET Flow: scoates 03:21 PM 6Fr XB LAD 3.5 [place] Bright-Tip guide catheter was used to cannulate the PCI vessel successfully. reused? No scoates 03:21 PM .014 BMW Viola 190cm guide wire across target lesion- successful. reused? No scoates 03:22 PM Asist FFR Catheter advanced to target lesion. scoates 03:22 PM Recorded Pressure: Ao, HR=60, Condition=Condition 1 (Aorta) Ao 152/72/103 03:23 PM Time: 15:23 Heparin 3000 units Intra Arterial Given by Anahy Souza MD scoates 03:25 PM Recorded Pressure: Ao, LV, HR=62, Condition=Condition 1 (Aorta) Ao 142/68/102, (Left Ventricle) LV 159/83/85 03:25 PM HR=62 bpm, GZVL=038/76 mmhg, SpO2=95.0 %, Resp=15 B/min, Comment=sb 03:26 PM Time: 15:26 Adenosine 647 ml/hr Intravenous Given by Roseline Panda RN scoates 03:29 PM Pressure channel 1 zeroed. 03:29 PM Recorded Pressure: Ao, LV, HR=63, Condition=Condition 1 (Aorta) Ao 143/71/101, (Left Ventricle) LV 145/64/64 03:29 PM adenosine stopped scoates 03:30 PM FFR Measurement: 0.82 scoates 03:30 PM adenosine restarted for second FFR scoates 03:30 PM HR=60 bpm, OLUP=916/66 mmhg, SpO2=95.0 %, Resp=19 B/min, EtCO2=20 mmHg, Comment=sb 03:32 PM Adenosine stopped. scoates 03:32 PM FFR Measurement: 0.85 scoates 03:32 PM Time: 15:17LOC: 4 = Oriented but drowsy scoates 03:33 PM Time: 15:17 Patient comfortable and pain free: Yes scoates 03:33 PM Flow Wire/Catheter removed intact scoates 03:33 PM Guide wire removed intact. scoates 03:33 PM Guide catheter removed intact. scoates 03:34 PM Procedure completed at 15:34 04/01/2018 scoates 03:34 PM Did you address LISSET flow and Dominance? Yes scoates 03:35 PM Sign out completed: Radiation Dose 354 mGy, 3833 cGy/cm2 Fluoro Time: 4.4 Isovue 370 - 200ml contrast 92 ml given by Vahid Souza MD. Complications: None. The patient was discharged out of the lab[address] road in stable condition. Sedation minutes 39. Cardiac Rehab Consult needed: No. Confirmed administered medications: Yes scoates 03:35 PM HR=60 bpm, BWKJ=341/75 mmhg, SpO2=96.0 %, Resp=11 B/min 03:36 PM Isovue 370 - 200ml,1 Bottle(s) used. scoates 03:37 PM Arterial sheath pulled, Angio-seal closure device used and was Successful [id number] S/N. scoates 03:37 PM Estimated Blood Loss: minimal scoates 03:37 PM Post ECG Sinus Bradycardia scoates 03:37 PM Post Blood Pressure 153/75 scoates 03:42 PM 15:42 Post Pulses Bilateral DP & PT 2+ scoates 03:42 PM Information taught Cardiac Cath and Angioseal scoates 03:42 PM Education needs Procedure, Plan of Care, and Responsibilities of Patient in Care scoates 03:42 PM Learning barriers :None scoates 03:42 PM Education Methods Verbal scoates 03:42 PM Education evaluation Able to repeat information scoates 03:42 PM Site status No bleeding/hematoma - Rt Groin as reported by Latricia Salas RT (R) at 15:42 scoates 03:42 PM Opsite applied scoates 03:42 PM Plavix, Effient or Brilinta given No scoates 03:42 PM Delay to floor No scoates 03:42 PM family not here at this time, dr. souza will call daughter scoates 03:48 PM Patient out of room: 15:48 scoates 03:48 PM Report given to Beti VIDAL Pt taken to Room #14. 15:48 scoates Complications Complication None Hemodynamics Pressures Site Systolic/A Wave Diastolic/V Wave Mean AO 153 76 107 AO 138 75 101 LV 153 11 18 LV 152 11 20 AO 169 43 102 AO 152 72 103 AO 142 68 102 LV 159 83 85 AO 143 71 101 LV 145 64 64 Post Procedure Information Blood Pressure: 153/75 mmHg Rhythm: Sinus Bradycardia Post procedural instructions were given Closure Device Time Device Success/Fail 04/01/2018 3:40:00 PM Angio-Seal VIP Successful Site Checks Time Location Status Staff Sheath In? Note 03:42 PM Rt Groin No bleeding/hematoma Latricia Salas RT (R) Pulses Time Site Pre-Procedure Post-Procedure Note 04/01/2018 1:22:00 PM Bilateral DP & PT 2+ 04/01/2018 1:22:00 PM Bilateral radial 2+ 3:42:00 PM Bilateral DP & PT 2+ Updated by Chuy Blas RN on 04/01/2018 3:56:12 PM electronically signed on 04/01/2018 3:58:16 PM with status of Final
[2018-04-01] MEDS: Isosorbide MONOnitrate (24 HR) 30 MG TAB.ER.24H PO SCH (17:13)
[2018-04-01] MEDS: ALPRAZolam 1 MG TABLET PO SCH (21:55)
[2018-04-02 01:53] LABS: Basophils % 0.8 %; Eosinophils # 0.2 K/mcL (0.0-0.6); Eosinophils % 4.3 %; Hematocrit 41.1 % (35.3-44.9); Hemoglobin 13.1 g/dL (11.5-15.4); Lymphocytes # 1.8 K/mcL (0.6-4.6); Mean Corpuscular HGB Conc 31.9 g/dL (31.6-35.5); Mean Corpuscular Hemoglobin 29.2 pg (28.0-33.3); Mean Corpuscular Volume 91.7 fL (83.0-100.0); Mean Platelet Volume 10.5 fL (9.4-12.4); Monocytes # 0.5 K/mcL (0.0-1.3); Monocytes % 10.1 %; Neutrophils # 2.4 K/mcL (1.6-8.9); Platelet Count 206 K/mcL (140-400); Red Blood Count 4.48 M/mcL (3.82-4.97); Red Cell Distribution Width 14.4 % (11.5-14.5); Segmented Neutrophils % 47.8 %
[2018-04-02 02:28] LABS: BUN/Creatinine Ratio 19 (6-26); Blood Urea Nitrogen 18 mg/dL (8-23); Calcium 8.2 mg/dL (8.6-10.3); Carbon Dioxide 30 mEq/L (23-29); Chloride 105 mEq/L (98-107); Glucose 131 mg/dL (70-105); Osmolality,Calculated 298 (280-300); Potassium 3.9 mEq/L (3.5-5.1); Sodium 142 mEq/L (136-145); eGFR For Non-African Americans 56 (> 60)
[2018-04-02] MEDS: Acetaminophen 325 MG TABLET PO PRN (08:15)
[2018-04-02] MEDS: Furosemide 20 MG TABLET PO SCH (08:16)
[2018-04-02] MEDS: Gabapentin 100 MG CAPSULE PO SCH (08:16)
[2018-04-02] MEDS: Metoprolol XL (24 HR) Succ 25 MG TAB.ER.24H PO SCH (08:16)
[2018-04-02] MEDS: Nystatin POWDER 30 GM BOTTLE TP SCH (08:16)
[2018-04-02] MEDS: Isosorbide MONOnitrate (24 HR) 30 MG TAB.ER.24H PO SCH (08:16)
[2018-04-02] MEDS ORDERED: *HR* Rivaroxaban 10 MG TABLET PO SCH (09:00)
[2018-04-02] MEDS ORDERED: Lidocaine OINT 35.44 GM TUBE TP ONE (09:41)
--- NOTE | 2018-04-02 09:57 | Discharge Summary ---
- NOTES TO OUTPATIENT PROVIDER Notes to Outpatient Provider: f/u with PCP within 2 weeks. F/u with GI within a month. F/u with cardiology within a month. Orders not resulted at time of discharge: Pending orders 03/29/18 11:46 US gall bladder [US] Stat 03/31/18 07:00 NM deonte perf SPECT multi [NM] Routine 03/31/18 14:03 Surgical Pathology [PTH] Routine 04/01/18 10:59 CL Cardiac Catheterization [CL] Routine Date of Encounter: 04/02/18 Time of Encounter: 09:48 - Discharge Diagnosis (1) CAD (coronary artery disease) Priority: Secondary Status: Acute Qualifiers: Coronary Disease-Associated Artery/Lesion type: [place] artery [place] vs. transplanted heart: [place] heart Associated angina: with unstable angina Qualified Code(s): I25.110 - Atherosclerotic heart disease of [place] coronary artery with unstable angina pectoris (2) Hypothyroidism Priority: Secondary Status: Acute Qualifiers: Hypothyroidism type: acquired Qualified Code(s): E03.9 - Hypothyroidism, unspecified (3) Chest pain Priority: Primary Status: Acute Qualifiers: Chest pain type: unspecified Qualified Code(s): R07.9 - Chest pain, unspecified (4) History of pulmonary embolism Priority: Secondary Status: Chronic (5) CHF (congestive heart failure) Priority: Secondary Status: Chronic Qualifiers: Heart failure type: unspecified Heart failure chronicity: unspecified Qualified Code(s): I50.9 - Heart failure, unspecified (6) DVT prophylaxis Priority: Primary Status: Acute (7) Right sided abdominal pain Priority: Primary Status: Acute (8) Allergic dermatitis Priority: Primary Status: Acute (9) Shingles rash Priority: Primary Status: Acute Qualifiers: Herpes zoster complications: with nervous system involvement Herpes zoster neurologic complication detail: postherpetic polyneuropathy Qualified Code(s): B02.23 - Postherpetic polyneuropathy Hospital course: Ms. 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 Patient presented PCP after experiencing approximately one week of intermittent sharp pain that radiated from mid back to right lower chest. This morning she awoke approximately 4:00 experiencing back pain that radiated to her right side she did experience shortness of breath and some nausea. She return to her PCP today to address her back pain and she began to experience sharp chest pain. Again pain originating in the back radiating to her right chest he did have shortness of breath and EMS was called by the time they arrived her chest pain had subsided. There were no aggravating factors. Patient states that pain with intermittently return in the EMS administered aspirin and nitroglycerin her pain did subside after taking medication. She did have another episode of pain upon arrival to the ER however they subsided on their own. EKG was obtained which did show sinus bradycardia with a right bundle branch block with first-degree block which appears to be present and previous EKG no ST-T wave abnormalities. Initial troponin was negative d-dimer was within normal limits chest x-ray with no acute findings patient was transferred to [facility] for further cardiac workup and evaluation. On the physical exam, a band like rashes with small vesicles noted on the right side upper back extended to the right flank noted. Pt reported sharp shooting pain when touching this area. Further labs tests showed normal troponin for three sets. GI workup showed normal lipase, unremarkable RUQ US. EGD revealed large hiatal hernia and gastritis, biopsy was obtained and pathology is pending currently. ECHO showed LVEF 55%, normal LV chamber size and systolic function, basal sigmoid septum. Stress nuclear tests revealed mall sized, moderate-severe intensity perfusion defect seen in the mid-distal portion of the inferior wall possibly representing ischemia. A small sized, mild intensity perfusion defect is observed during rest with normal wall motion suggesting artifact. Recommend clinical correlation. Pharmacologic stress ECG is negative for ischemia at level of heart rate achieved. No appreciable change from baseline ECG. Gated EF = 57%. Findings communicated to ordering provider. Pt underwent left heart cath on 04/01 which showed 40-50% proximal LAD lesion, FFR negative. No intervention. cardiology recommended continue ASA, Statin, BB, ARB. On the day of discharge, Pt still having intermittent back and right chest pain which is likely caused by shingles and post-herpetic neuragia. Neurontin and lidocaine ointment were prescribed. Pt will f/u with PCP, GI and cardiology as scheduled. Discharge discussed with: patient Time spent discussing smoking cessation with patient: more than 10 minutes - Time Spent with Patient Total time spent providing and/or coordinating discharge services: 45 mins. Greater than 30 minutes - Discharge Medications Prescriptions: New Gabapentin [Neurontin] 200 mg PO TID #90 capsule Isosorbide MONOnitrate (24 HR) [Imdur] 30 mg PO DAILY #30 tab.er.24h Omeprazole [PriLOSEC] 40 mg PO BIDAC #60 capsule. Lidocaine 15 gm TP DAILY #1 cream..g. Continue Levothyroxine Sodium [Tirosint] 88 mcg PO QAM ALPRAZolam [Xanax 1 MG Tablet] 1 mg PO HS Furosemide [Lasix] 20 mg PO DAILY Potassium Chloride 20 meq PO DAILY Ferrous Sulfate [Iron] 325 mg PO DAILY Metoprolol XL (24 HR) Succ [Toprol Xl] 12.5 mg PO QAM B2/Vits A,C,E/Lut/Zeaxanth/Min [Icaps Tablet] 2 tab PO BID DiphenhydraMINE [Benadryl] 25 mg PO DAILY PRN PRN Reason: Sleep Losartan [Cozaar] 25 mg PO DAILY Nitroglycerin [Nitrostat] 0.4 mg SL Q5MIN PRN PRN Reason: Chest Pain Rosuvastatin Calcium 20 mg PO HS Acetaminophen [Tylenol] 500 - 1,000 tab PO Q6HR PRN PRN Reason: Pain Aspirin 81 mg PO QPM Discontinued Omeprazole [PriLOSEC] 40 mg PO DAILY Rivaroxaban [Xarelto] 10 mg PO DAILY Home Medications: Levothyroxine Sodium [Tirosint] 88 mcg PO QAM 10/02/15 [History] ALPRAZolam [Xanax 1 MG Tablet] 1 mg PO HS 10/09/15 [History] B2/Vits A,C,E/Lut/Zeaxanth/Min [Icaps Tablet] 2 tab PO BID 07/21/17 [History] DiphenhydraMINE [Benadryl] 25 mg PO DAILY PRN 07/21/17 [History] Ferrous Sulfate [Iron] 325 mg PO DAILY 07/21/17 [History] Furosemide [Lasix] 20 mg PO DAILY 07/21/17 [History] Losartan [Cozaar] 25 mg PO DAILY 07/21/17 [History] Metoprolol XL (24 HR) Succ [Toprol Xl] 12.5 mg PO QAM 07/21/17 [History] Nitroglycerin [Nitrostat] 0.4 mg SL Q5MIN PRN 07/21/17 [History] Potassium Chloride 20 meq PO DAILY 07/21/17 [History] Rosuvastatin Calcium 20 mg PO HS 07/21/17 [History] Acetaminophen [Tylenol] 500 - 1,000 tab PO Q6HR PRN 03/27/18 [History] Aspirin 81 mg PO QPM 03/27/18 [History] Gabapentin [Neurontin] 200 mg PO TID #90 capsule 04/02/18 [Rx] Isosorbide MONOnitrate (24 HR) [Imdur] 30 mg PO DAILY #30 tab.er.24h 04/02/18 [Rx] Lidocaine 15 gm TP DAILY #1 cream..g. 04/02/18 [Rx] Omeprazole [PriLOSEC] 40 mg PO BIDAC #60 capsule. 04/02/18 [Rx] Allergies/Adverse Reactions: Allergy/AdvReac Type Severity Reaction Status Date / Time adhesive tape Allergy Rash Verified 07/21/17 15:43 Date of admission: 03/29/18 13:31 Primary care physician: Katia Cordoba CNP Consults: 03/30/18 11:38 Consult to Gastroenterology [CONS] Routine Consulting Provider: Gastroenterology Mariam Reason for Consult: R upper quadrant pain Time Notified: 11:38 Call Completed: Yes 03/31/18 13:54 Consult to Cardiology [CONS] Routine Comment: Consulting Provider: Cardiology Mariam Reason for Consult: abnormal stress Time Notified: 13:54 Call Completed: Yes Anticipated date of discharge: 04/02/18 - Constitutional Vitals: Temp Pulse Resp BP Pulse Ox 97.9 F 63 16 104/65 95 04/02/18 07:11 04/02/18 07:11 04/02/18 07:11 04/02/18 07:11 04/02/18 07:11 General appearance: Present: A&O X 3, answers questions appropriately Exam: Skin: Has red raised welts on chest and upper abdomen Eyes: Sclera is white. There is no discharge from eyes. ENMT: Oral/pharyngeal mucosa is normal in appearance. There is no discharge from nose or ears. Respiratory: Normal breath sounds with no crackles and wheezes bilaterally. CV: Heart is regular with no gallop or murmur. GI: Abdomen is flat and soft with no palpable mass or visceromegaly.-Right upper quadrant tenderness : There is right sided flank tenderness radiating to right upper quadrant Neuro exam: He has good strength in upper and lower extremities. He has normal eye movements. Psychiatric: He has normal affect. His thought process is appropriate to the situation. - Patient Status Disposition: Home, Self-Care Condition: Fair Functional capacity at discharge: independent ambulation Overall status at discharge: patient is progressing back to baseline - Discharge Instructions Follow Up With: Katia Cordoba [employer]INT TRIMMER [Primary Care Provider] - 04/06/18 1:00 pm () - Diet and Activity Activity: increase activity as tolerated Diet: advance to your usual diet
[2018-04-02] MEDS ORDERED: Gabapentin 100 MG CAPSULE PO ONE (10:15)
[2018-04-02 12:06] VITALS: BP 101/54
[2018-04-02] MEDS ORDERED: Gabapentin 100 MG CAPSULE PO SCH (15:00)
== END 2018-04-02 16:14 | disposition home or self-care (01) | DRG 287 ==
LOC: 3BNU
PROVIDERS: ADMIT Internal Medicine; ATTEND Nurse Practitioner Acute Care
PROC: ENDOEBX (2018-03-31 14:30)